=== PATIENT | male | born 1990 | race Caucasian/White ===

== ENCOUNTER 2025-03-14 17:11 | Emergency (ER) | payer MEDICARE, MEDICAID, SELFPAY ==
[2025-03-14] VITALS (9 sets, daily range): BP systolic 132–156; BP diastolic 86–101; PULSE 89–102; RESP 16–17; TEMP 36.6; O2SAT 94–98; BMI 23.8
--- NOTE | 2025-03-14 17:15 | W.ED.EXTPRO ---
HPI - Extremity Problem General: Chief complaint: Extremity Problem,Nontraumatic Stated complaint: right arm pain Time Seen by Provider: 03/14/25 17:13 Source: patient Mode of arrival: EMS Limitations: no limitations History of Present Illness: Patient is a 34-year-old male presents to ED today with a complaint of left arm swelling and pain that started yesterday evening. He states the arm felt normal all day but later that evening began developing swelling. Patient denies any injury or trauma. He denies any recent scratches, abrasions, lacerations. Denies IV drug use. Denies history of DVT/PE. He is a dialysis patient and has a port for hemodialysis. He has not missed any treatments. He has had a fistula to the left arm before but this was removed several years ago. Patient is not complaining of shortness of breath or difficulty breathing. Vital signs are stable upon arrival apart from his blood pressure is elevated at 156/101. 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 MD Complaint: extremity pain and extremity swelling Onset (ago): day(s) (yesterday evening) Pain Consistency: constant Location: left and upper extremity Radiation: none Relieving factors: immobilization Exacerbating factors: range of motion and palpation Associated symptoms: Reports no associated symptoms; Deny chest pain or fever(s) Related Data Previous Rx's ?Medication ?Instructions ?Recorded apixaban 5 mg tablet (Eliquis) 5 mg PO BID #74 tabs 03/14/25 hydrocodone 5 mg-acetaminophen 325 1 tab PO Q6H PRN pain #20 tabs 03/14/25 mg tablet Allergies Allergy/AdvReac Type Severity Reaction Status Date / Time bee venom protein (honey bee) Allergy ALGY-Anaphy Verified 03/14/25 17:16 laxis mushroom Allergy ALGY-Anaphy Verified 03/14/25 17:16 laxis vancomycin Allergy ALGY-Redness Verified 03/14/25 17:16 of Skin Review of Systems Const: Denies: fever(s), chills, body aches, fatigue or malaise Card: Denies: chest pain Resp: Denies: dyspnea GI: Denies: abdominal pain Musc: Reports: extremity pain (L arm) and extremity swelling (L arm) Skin/Breast: Denies: erythema Neuro: Denies: headache(s) Physical Exam Const: COMMON NORMALS: no acute distress, patient oriented x3 and alert GENERAL APPEARANCE: cooperative and other (chronically ill appearing) ORIENTATION/CONSCIOUSNESS: Yes awake, Yes oriented to person, Yes oriented to place and Yes oriented to time HENMT: COMMON NORMALS: normocephalic and atraumatic HEAD & SCALP: normal to inspection, normocephalic and atraumatic FACE & SINUS: normal facial exam Chest: OTHER: chest port appears clean/well dressed Resp: COMMON NORMALS: normal respiratory effort and clear to auscultation bilaterally AUSCULTATION: clear to auscultation bilaterally Cardio: COMMON NORMALS: regular rate and regular rhythm RATE: regular rate RHYTHM: regular rhythm Extremity: COMMON NORMALS: capillary refill normal NARRATIVE EXTREMITY EXAM: bilateral LE amputations patient has diffuse edema involving entire L UE; radial pulse is normal with normal cap refill; arm is warm to the touch but no erythema/streaking noted; no wounds present; pain worse with movement and palpation GENERAL: Yes normal exam except as noted Neuro: COMMON NORMALS: patient oriented x3 SENSORIUM/ORIENTATION: Yes alert, Yes oriented to person, Yes oriented to place and Yes oriented to time Skin: COMMON NORMALS: no rashes or lesions noted GENERAL SKIN EXAM: no rashes or lesions noted TRAUMA: no lacerations or abrasions Course Consultations: Consultation #1: Dr. Hebert-felt patient could be safely discharged on Eliquis/Xarelto-did not feel he needed to be admitted for IV heparin Vital Signs: Vital signs: Vital Signs Temperature 97.8 F 03/14/25 17:12 Pulse Rate 102 H 03/14/25 20:44 Respiratory Rate 16 03/14/25 20:36 Blood Pressure 141/99 03/14/25 20:44 Pulse Oximetry 95 03/14/25 20:44 Oxygen Delivery Me thod Room Air 03/14/25 20:04 MDM - Extremity (Nontraumatic) Medical Decision Making Patient is a 34-year-old male with a complex past medical history here with a complaint of left arm swelling starting yesterday evening. He denies any known injury or trauma to the extremity. He denies any abrasions, cuts, scrapes, puncture wounds, drug use, etc to introduce infection. Clinically there is no cellulitis present. He was reportedly evaluated at [facility] and sent here for DVT rule out. Patient was found to have a left axillary DVT. He is not complaining of shortness of breath or difficulty breathing. Given his complex past medical history, I did discuss with Dr. Parks who felt we should consult with hospitalist for possible admission. I did discuss with hospitalist Dr. Hebert who felt patient could go home on oral anticoagulation. Blood work was obtained here showing multiple derangements. We tried to contact [facility] for previous lab results but was told that we do not have access to that . He was not sent with any previous labs. Patient states his last hospitalization was at [facility] a few months ago. We tried to contact records from them but awaited several hours and still not obtained. Patient has been compliant with his dialysis. He is scheduled for dialysis tomorrow. His BUN/CR today is 60/4.7. Potassium is normal. Patient does have elevated LFTs. He has a normal T. bili. His lipase is 8. He has no complaints of abdominal pain. I think these can be followed by primary care if they are acute. He had no other complaints today other than the arm swelling/pain. No evidence at this time for phlegmasia cerulea dolens to suggest that he would need an emergent thrombectomy. No contraindication to anticoagulation. Patient will be allowed discharge with strict return precautions. Differential Diagnosis Likely gout, cellulitis, superficial thrombophlebitis and deep venous thrombosis of upper extremity Medical Records I reviewed the patient's medical records. Lab Data I reviewed the patient's lab results. 03/14/25 17:56 03/14/25 17:56 Radiology Impressions Venous Duplex 03/14/25 17:24 IMPRESSION: Left axillary vein deep vein thrombosis. ADDENDUM: 03/14/251917 THIS REPORT CONTAINS FINDINGS THAT MAY BE CRITICAL TO PATIENT CARE. The findings were verbally communicated via telephone conference with MARTI FRIEND at 7:17 PM MERCHANDISING LEAD on 03/14/2025. The findings were acknowledged and understood. Laboratory Results WBC 9.25 10^3/uL (3.29-11.43) 03/14/25 17:56 RBC 4.11 10^6/uL (3.85-5.65) 03/14/25 17:56 Hgb 11.90 g/dL (11.27-16.99) 03/14/25 17:56 Hct 37.8 % (37-53) 03/14/25 17:56 MCV 92.0 fl (82-101) 03/14/25 17:56 MCH 29.0 pg (27-33) 03/14/25 17:56 MCHC 31.5 g/dL (30-55) 03/14/25 17:56 RDW 13.9 % (12.1-15.1) 03/14/25 17:56 Plt Count 190 10^3/cmm (157-399) 03/14/25 17:56 MPV 8.4 fL (7.4-10.4) 03/14/25 17:56 Neut % (Auto) 54.9 % 03/14/25 17:56 Lymph % (Auto) 21.4 % 03/14/25 17:56 [place] % (Auto) 8.6 % 03/14/25 17:56 Eos % (Auto) 13.8 % 03/14/25 17:56 Baso % (Auto) 0.8 % 03/14/25 17:56 Neut # (Auto) 5.07 10^3/uL (1.8-7.7) 03/14/25 17:56 Lymph # (Auto) 2.0 10^3/uL (0.8-4.8) 03/14/25 17:56 [place] # (Auto) 0.8 10^3/uL (0.2-0.9) 03/14/25 17:56 Eos # (Auto) 1.3 10^3/uL (0.0-0.8) H 03/14/25 17:56 Baso # (Auto) 0.1 10^3/uL (0.0-0.1) 03/14/25 17:56 Nucleated RBC % (auto) 0 % 03/14/25 17:56 Nucleated RBCs # 0.0 /100WBC 03/14/25 17:56 ESR 63 mm/hr (0-10) H 03/14/25 17:56 PT 15.70 SECONDS (12.1-14.9) H 03/14/25 17:56 INR 1.17 (0.8-1.2) 03/14/25 17:56 APTT 33.9 SECONDS (23.9-36.7) 03/14/25 17:56 Sodium 128 mmol/L (136-145) L 03/14/25 17:56 Potassium 4.4 mmol/L (3.5-5.1) 03/14/25 17:56 Chloride 98 mmol/L (98-107) 03/14/25 17:56 Carbon Dioxide 20 mmol/L (22-29) L 03/14/25 17:56 Anion Gap 14.4 (5-19) 03/14/25 17:56 BUN 60 mg/dL (6-20) H 03/14/25 17:56 Creatinine 4.7 mg/dL (0.7-1.2) H 03/14/25 17:56 GFR Calculation 14.3 mL/min (90-130) L 03/14/25 17:56 Glucose 152 mg/dL (65-115) H 03/14/25 17:56 Calculated Osmolality 286 mOsm/kg (285-295) 03/14/25 17:56 Calcium 8.4 mg/dL (8.5-10.5) L 03/14/25 17:56 Total Bilirubin 0.3 mg/dL (0.15-1.2) 03/14/25 17:56 AST 84 U/L (0-40) H 03/14/25 17:56 ALT 112 U/L (0-41) H 03/14/25 17:56 Alkaline Phosphatase 690 U/L (40-130) H 03/14/25 17:56 C-Reactive Protein 18.0 mg/L (0.0-4.9) H 03/14/25 17:56 Total Protein 6.8 g/dL (6.6-8.7) 03/14/25 17:56 Albumin 2.6 g/dL (3.5-5.2) L 03/14/25 17:56 Globulin 4.2 g/dL (1.3-4.6) 03/14/25 17:56 Lipase 8 U/L (13-60) L 03/14/25 17:56 All radiology interpretation(s) finalized by discharge Discharge Plan Discharge Patient Disposition: Home Clinical Impression: DVT of axillary vein, acute left, Elevated LFTs Chronic kidney disease Qualifiers: Chronic kidney disease stage: on chronic dialysis Qualified Code(s): N18.6 - End stage renal disease Condition: Stable Prescriptions: New Eliquis 5 mg tablet 5 mg PO BID Qty: 74 0RF Rx Instructions: Take two tabs (10mg) PO BID x 7 days then one tab (5mg) PO BID thereafter hydrocodone-acetaminophen 5-325 mg tablet 1 tab PO Q6H PRN (Reason: pain) Qty: 20 0RF Discharge Orders: Discharge ED (Routine); Ordered 03/14/25 Ordered By: Marti Friend Patient Instructions: Apixaban (By mouth), Deep Vein Thrombosis (ED), Deep Vein Thrombosis (DC), Opioid Safety, Pain Management, Patient Portal & Lidia Instructions Activity Restrictions/Additional Instructions: As we discussed, your ultrasound imaging today showing a DVT (deep vein thrombosis/blood clot) involving your left axillary vein which is responsible for causing the swelling to your left arm. We will place you on anticoagulation ( blood thinners ) for this. You need to follow-up with your primary care provider as soon as possible. You need to return to the emergency department for worsening arm swelling, color changes, worsening or uncontrollable pain, onset of chest pain, shortness of breath, difficulty breathing, or any other concerns you may have. Continue plan for dialysis as scheduled. As we discussed, you were found to have elevated liver enzymes on your blood work today. I am not sure if these are chronic or not as we were not able to obtain any baseline labs from [facility] or from [facility] in [place]. I would like primary care to review these and determine course of action based. Again you are welcome to return to the emergency department at anytime for any further concerns you may have. Print Language: Telugu Coding Level of Care Code ED Marketing Admin for Linda Castellano
--- OUTSIDE RECORDS SUMMARY | 2025-03-14 17:22 | XMS_ITS | Encounter Summary ---
Author Organization [facility] Address [address] [place] [address] Care Team Providers Care Commercial Front Load Driver Name Role Phone Cc Amb, Physician Pc MD Primary Care Provider Un available Encounter Details Date Type Department Care Team (Late st Contact Info) Description 02/02/2021 Lab Requisition [facility] Laboratory Services [address] [place] [phone] Lurdes Cabrera MD [address] [place] [address] Social History Tobacco Use Types Packs/Day Years Used Date Smoking Tobacco: Never Smokeless Tobacco: Never Alcohol Use Standard Drinks/Week Comments No 0 (1 standard drink = 0.6 oz pur e alcohol) Feeling Safe Answer Date Recorded Within the last year, have y ou been afraid of your partner or ex-partner? Patient declined 06/14/2020 Within the last year, have y ou been humiliated or emotionally abused in other ways by your partner or ex-partner? Patient declined 06/14/2020 Within the last year, have y ou been kicked, hit, slapped, or otherwise physically hurt by your partner or ex-partner? Patient declined 06/14/2020 Within the last year, have y ou been raped or forced to have any kind of sexual activity by your partner or ex-partner? Patient declined 06/14/2020 Social Connections Answer Date Recorded In a typical week, how many times do you talk on the phone with family, friends, or neighbors? Patient declined 06/14/2020 How often do you get togethe r with friends or relatives? Patient declined 06/14/2020 How often do you attend orthodoxy or sikh serv ices? Patient declined 06/14/2020 Do you belong to any clubs o r organizations such as orthodoxy groups, unions, fraternal or athletic groups, or school groups? Patient declined 06/14/2020 How often do you attend meet ings of the clubs or organizations you belong to? Patient declined 06/14/2020 Are you , , di vorced, , never , or living with a partner? Patient declined 06/14/2020 Financial Resource Strain Answer Date R ecorded How hard is it for you to pa y for the very basics like food, housing, medical care, and heating? Patient declined 06/14/2020 Food Insecurity Answer Date Recorded Within the past 12 months, y ou worried that your food would run out before you got the money to buy more. Patient declined Within the past 12 months, t he food you bought just didn't last and you didn't have money to get more. Patient declined Transportation Needs Answer Date Record ed In the past 12 months, has l ack of transportation kept you from medical appointments or from getting medications? Patient declined 06/14/2020 In the past 12 months, has l ack of transportation kept you from meetings, work, or from getting things needed for daily living? Patient declined 06/14/2020 Sex and Gender Information Value Date Recorded Sex Assigned at Not on file Legal Sex Male 6:04 AM ELECTRICAL CALIBRATOR Gender Identity Not on file Sexual Orientation Not on file COVID-19 Exposure Response Date Recorded In the last month, have you been in contact with someone who was confirmed or suspected to have Coronavirus / COVID-19? No / Unsure 01/27/2021 8:28 PM CDT documented as of this encounter Plan of Treatment Upcoming Encounters Date Type Department Care Team (Late st Contact Info) Description 03/22/2025 12:30 PM ELECTRICAL CALIBRATOR Office Visit [facility] Physical Med and Rehab [facility] [address] [place] [phone] William Cardozo MD [address] [place] [phone] 03/23/2025 10:50 AM ELECTRICAL CALIBRATOR Appointment [facility] Laboratory Services [address] [place] [address] 03/30/2025 7:50 AM ELECTRICAL CALIBRATOR Office Visit [facility] Cancer and Hematology [place] [address] [place] [address] Jignesh Geiger NP [address] [place] [address] documented as of this encounter Procedures Procedure Name Priority Date/Time Associated Diagnosis Comments DIFFERENTIAL, MANUAL Routine 02/02/2021 4:45 AM CDT CBC WITH DIFFERENTIAL Routine 02/02/2021 4:45 AM CDT PHOSPHORUS Routine 02/02/2021 4:45 AM CDT MAGNESIUM LEVEL Routine 02/02/2021 4:45 AM CDT COMPREHENSIVE METABOLIC PANEL Routine 02/02/2021 4:45 AM CDT documented in this encounter Results * (ABNORMAL) MANUAL DIFFERENTIAL (02/02/2021 4:45 AM CDT) SEGMENTED NEUTROPHILS 66 36 - 66 % 02/02/2021 7:53 AM CDT [facility] [employer] [facility] LYMPHOCYTES RELATIVE 17(L) 24 - 44 % 02/02/2021 7:53 AM CDT [facility] [employer] [facility] MONOCYTES RELATIVE 9 4 - 10 % 2020 7:53 AM CDT [facility] [employer] [facility] EOSINOPHILS RELATIVE 1 0 - 3 % 02/02/2021 7:53 AM CDT [facility] METAMYELOCYTES RELATIVE 3(H) 0 - 1 % 02/02/2021 7:53 AM CDT [facility] MYELOCYTES - REL (DIFF) 4(H) 0 - 1 % 02/02/2021 7:53 AM CDT [facility] NEUTROPHILS ABSOLUTE COUNT 8.18(H) 2.00 - 8.00 K/uL 02/02/2021 7:53 AM CDT [facility] LYMPHOCYTES ABSOLUTE 2.11 1.20 - 4.00 K/uL 02/02/2021 7:53 AM CDT [facility] MONOCYTES ABSOLUTE 1.12(H) 0.10 - 0.60 K/uL 02/02/2021 7:53 AM CDT [facility] EOSINOPHILS ABSOLUTE 0.12 0.00 - 0.70 K/uL 02/02/2021 7:53 AM CDT [facility] TOTAL CELLS COUNTED IN DIFF 100 02/02/2021 7:53 AM [facility] PLATELET EST. Increased 02/02/2021 7:53 AM [facility] HYPOCHROMIA 2+ /hpf 02/02/2021 7:53 AM T [facility] Blood Collection / Unknown 02/02/2021 4:45 AM CDT 02/02/2021 6:40 AM CDT Lurdes Cabrera MD HEMATOLOGY ORDER AILYN COM Final Result [facility] CLIA # [id number] [address] [address] [place] [address] * PHOSPHORUS (02/02/2021 4:45 AM CDT) [facility] PHOSPHORUS 4.3 2.5 - 4.5 mg/dL 02/02/2021 7:44 AM CDT [facility] Blood Collection / Unknown 02/02/2021 4:45 AM CDT 02/02/2021 6:40 AM CDT us Lurdes Cabrera MD CHEMISTRY ORDERA BLES Final Result [facility] CLIA # [id number] [address] [address] [place] [address] * (ABNORMAL) CBC WITH DIFFERENTIAL (02/02/2021 4:45 AM CDT) [facility] WBC 12.4(H) 4.5 - 11.0 K/uL 02/02/2021 7:53 AM CDT [facility] RBC 3.38(L) 4.60 - 6.20 M/uL 02/02/2021 7:53 AM CDT [facility] HEMOGLOBIN 8.9(L) 14.0 - 18.0 g/dL 02/02/2021 7:53 AM CDT [facility] HEMATOCRIT 29.9(L) 41.0 - 53.0 % 02/02/2021 7:53 AM CDT [facility] MCV 88.5 84.0 - 103.0 fL 02/02/2021 7:53 AM CDT [facility] MCH 26.3(L) 27.0 - 34.0 pg 02/02/2021 7:53 AM CDT [facility] MCHC 29.8(L) 30.0 - 35.0 g/dL 02/02/2021 7:53 AM CDT [facility] RDW 15.9(H) 11.0 - 14.5 % 02/02/2021 7:53 AM CDT [facility] RDW-STDEV 50.2 37.0 - 54.0 fL 02/02/2021 7:53 AM CDT [facility] PLATELETS 517(H) 140 - 440 K/uL 02/02/2021 7:53 AM CDT [facility] MPV 10.4 8.9 - 12.8 fL 02/02/2021 7:53 AM CDT [facility] Blood Collection / Unknown 02/02/2021 4:45 AM CDT 02/02/2021 6:40 AM CDT us Lurdes Cabrera MD HEMATOLOGY ORDER AILYN Final Result Performing Organization Address City/[facility]/ZIP Co de Phone Number [facility] CLIA # [id number] [address] [address] [place], [place] [address] * MAGNESIUM LEVEL (02/02/2021 4:45 AM CDT) Pathologist [facility] MAGNESIUM 2.2 1.6 - 2.6 mg/dL 02/02/2021 7:44 AM CDT [facility] Blood Collection / Unknown 02/02/2021 4:45 AM CDT 02/02/2021 6:40 AM CDT us Lurdes Caberra MD CHEMISTRY ORDERA BLES Final Result Performing Organization Address [facility] [[email or web address]] Co de Phone Number [facility] CLIA # [id number] [address] [address] * (ABNORMAL) COMPREHENSIVE METABOLIC PANEL (02/02/2021 4:45 AM CDT) Pathologist [facility] SODIUM 138 136 - 145 mmol/L 02/02/2021 7:46 AM CDT [facility] POTASSIUM 4.9 3.5 - 5.1 mmol/L 02/02/2021 7:46 AM CDT [facility] Comment:Slightly hemolyzed. Result may be falsely elevated. CHLORIDE 99 98 - 107 mmol/L 02/02/2021 7:46 AM CDT [facility] CO2 27 22 - 29 mmol/L 02/02/2021 7:46 AM CDT [facility] CALCIUM 9.2 8.6 - 10.0 mg/dL 02/02/2021 7:46 AM [facility] BUN 23(H) 6 - 20 mg/dL 02/02/2021 7:46 AM [facility] CREATININE 2.83(H) 0.67 - 1.17 mg/dL 02/02/2021 7:46 AM [facility] GLUCOSE 144(H) 74 - 99 mg/dL 02/02/2021 7:46 AM [facility] TOTAL PROTEIN 8.1 6.4 - 8.3 g/dL 02/02/2021 7:46 AM [facility] ALBUMIN 2.4(L) 3.5 - 5.2 g/dL 02/02/2021 7:46 AM [facility] BILIRUBIN TOTAL 0.3 0.2 - 1.0 mg/dL 02/02/2021 7:46 AM [facility] ALKALINE PHOSPHATASE 533(H) 40 - 129 U/L 02/02/2021 7:46 AM [facility] AST 104(H) 10 - 50 U/L 02/02/2021 7:46 AM [facility] Comment:Hemolysis present. R esult may be falsely elevated. ALT 95(H) <=50 U/L 02/02/2021 7:46 AM [facility] GFR 26 mL/min/1. 73 sq meter 02/02/2021 7:46 AM [facility] Comment: eGFR has not been validated for use in the elderly (> 70 years of age), women, patients with serious co-morbid conditions, or persons with extremes of body size or muscle mass and should also be interpreted with caution in patients with acute kidney failure, dialysis dependent patients, patients reporting exceptional dietary intake (e.g. vegetarian diet, high protein diets, creatine supplementation), and patients with severe liver disease. Based on National Kidney Disease Education Program If patient is , please refer to the GFR result. GFR, 32 mL/min/1. 73 sq meter 02/02/2021 7:46 AM CDT [facility] ANION GAP 12 9 - 20 mmol/L 02/02/2021 7:46 AM CDT [facility] Blood Collection / Unknown 02/02/2021 4:45 AM CDT 02/02/2021 6:40 AM CDT Lurdes Cabrera MD CHEMISTRY ORDERA BLES Final Result [facility] CLIA # [id number] [address] [address] documented in this encounter Visit Diagnoses Not on filedocumented in this encounter Additional Health Concerns Infection Onset Date Last Indicated Resolved Time COVID-19 01/18/2021 01/18/2021 02/07/2021 1:16 AM CDT R/O COVID-19 01/30/2022 01/30/2022 01/30/2022 6:48 PM CDT C Diff 01/30/2022 02/05/2022 04/06/2022 1:16 AM ELECTRICAL CALIBRATOR R/O GI Pathogen 05/07/2023 05/07/2023 05/09/2023 3 :52 PM ELECTRICAL CALIBRATOR R/O Respiratory 11/15/2024 11/15/2024 11/15/2024 1 1:33 AM CDT R/O GI Pathogen 11/15/2024 11/16/2024 11/16/2024 1 1:55 AM CDT R/O Palmira auris Comment:Possible exposure to Palmira auris. Patient to be screened for C. auris and placed in Enhanced Contact precautions at every ED visit/admission until 05/23/2024 and once thereafter. If all screens are negative, contact Infection Prevention to resolve the R/O Palmira auris flag. 11/20/2024 11/20/2024 11/23/2024 2:43 PM CDT R/O C. diff 12/10/2024 12/10/2024 12/10/2024 9:47 PM CDT R/O GI Pathogen 12/10/2024 12/10/2024 12/10/2024 8 :34 PM CDT C Diff Comment:01/20/25: Patient continues to report symptoms of C. Diff and will need to remain in enteric contact isolation. Zohaib Angulo RN, Infection Prevention 12/10/2024 12/10/2024 02/08/2025 10:22 PM CDT MRSA 01/20/2025 01/20/2025 02/19/2025 10:2 1 PM CDT documented as of this encounter Care Teams Commercial Front Load Driver Relationship Specialty Start Date End Date Cc Jailyn, Physician Pc, MD PCP - General Family Practice 02/18/25 documented as of this encounter
--- OUTSIDE RECORDS SUMMARY | 2025-03-14 17:22 | XMS_ITS | Encounter Summary ---
Author Organization [facility] Address [address] [place] [address] Care Team Providers Care Optics Test Technician Name Role Phone Cc Amb, Physician Pc MD Primary Care Provider Un available Encounter Details Date Type Department Care Team (Late st Contact Info) Description 02/13/2021 Lab Requisition [facility] Laboratory Services [address] [place] [phone] Denzel Ku[place] [id number] [place] [phone] Social History Tobacco Use Types Packs/Day Years [...] declined 06/14/2020 How often do you attend temple or confucianism serv ices? Patient declined 06/14/2020 Do you belong to any clubs o r organizations such as temple groups, unions, fraternal or athletic groups, or [...] on file Legal Sex Male 6:04 AM ADVICE LINE RN Gender Identity Not on file Sexual Orientation Not on file COVID-19 Exposure Response Date Recorded In the last month, have you been in contact with someone who was confirmed or suspected to have Coronavirus / COVID-19? No / Unsure 02/16/2021 12:39 PM CDT documented as of this encounter Plan of Treatment Upcoming Encounters Date Type Department Care Team (Late st Contact Info) Description 03/22/2025 12:30 PM ADVICE LINE RN Office Visit [facility] Physical Med and Rehab [facility] [address] [phone] William Cardozo MD [address] [place] [phone] 03/23/2025 10:50 AM ADVICE LINE RN Appointment [facility] Laboratory Services [address] [place] [address] 03/30/2025 7:50 AM ADVICE LINE RN Office Visit [facility] Cancer and Hematology [place] [address] [place] [address] Jignesh Geiger NP [address] [place] [address] documented as of this encounter Procedures Procedure Name Priority Date/Time Associated Diagnosis Comments CBC WITH DIFFERENTIAL Routine 02/13/2021 4:02 AM CDT RENAL FUNCTION PANEL Routine 02/13/2021 4:02 AM CDT documented in this encounter Results * (ABNORMAL) CBC WITH DIFFERENTIAL (02/13/2021 4:02 AM CDT) WBC 9.6 4.5 - 11.0 K/uL 02/13/2021 6:30 AM CDT [facility] RBC 3.81(L) 4.60 - 6.20 M/uL 02/13/2021 6:30 AM CDT [facility] HEMOGLOBIN 10.3(L) 14.0 - 18.0 g/dL 02/13/2021 6:30 AM CDT [facility] HEMATOCRIT 33.5(L) 41.0 - 53.0 % 02/13/2021 6:30 AM CDT [facility] MCV 87.9 84.0 - 103.0 fL 02/13/2021 6:30 AM CDT [facility] MCH 27.0 27.0 - 34.0 pg 02/13/2021 6:30 AM [facility] Surgient [facility] MCHC 30.7 30.0 - 35.0 g/dL 02/13/2021 6:30 AM [facility] RDW 16.1(H) 11.0 - 14.5 % 02/13/2021 6:30 AM [facility] RDW-STDEV 50.7 37.0 - 54.0 fL 02/13/2021 6:30 AM [facility] PLATELETS 336 140 - 440 K/uL 02/13/2021 6:30 AM [facility] Surgient [facility] MPV 9.3 8.9 - 12.8 fL 02/13/2021 6:30 AM [facility] Surgient [facility] NEUTROPHILS 72 42 - 75 % 02/13/2021 6:30 AM [facility] LYMPHOCYTES 17(L) 24 - 44 % 02/13/2021 6:30 AM [facility] Surgient [facility] MONOCYTES 7 2 - 10 % 02/13/2021 6:30 AM [facility] Surgient [facility] EOSINOPHILS 2 0 - 7 % 02/13/2021 6:30 AM [facility] Surgient [facility] BASOPHILS 1 0 - 1 % 02/13/2021 6:30 AM [facility] IMMATURE GRANULOCYTES 2 0 - 2 % 02/13/2021 6:30 AM [facility] NEUTROPHIL ABSOLUTE 6.89 2.00 - 8.00 K/uL 02/13/2021 6:30 AM [facility] LYMPHOCYTE ABSOLUTE 1.59 1.20 - 4.00 K/uL 02/13/2021 6:30 AM [facility] MONOCYTE ABSOLUTE 0.64(H) 0.10 - 0.60 K/uL 02/13/2021 6:30 AM [facility] EOSINOPHIL ABSOLUTE 0.17 0.00 - 0.70 K/uL 02/13/2021 6:30 AM [facility] BASOPHILS ABSOLUTE 0.05 0.00 - 0.20 K/uL 02/13/2021 6:30 AM CDT [facility] IMMATURE GRANULOCYTES ABSOLUTE 0.21(H) 0.00 - 0.10 K/uL 02/13/2021 6:30 AM CDT [facility] Blood Collection / Unknown 02/13/2021 4:02 AM CDT 02/13/2021 6:20 AM CDT us Denzel Kuo MD HEMATOLOGY ORDERABLES Final Res ult [facility] CLIA # [id number] [address] [address] * (ABNORMAL) RENAL FUNCTION PANEL (02/13/2021 4:02 AM CDT) SODIUM 135(L) 136 - 145 mmol/L 02/13/2021 7:50 AM T [facility] POTASSIUM 3.7 3.5 - 5.1 mmol/L 02/13/2021 7:50 AM T [facility] CHLORIDE 97(L) 98 - 107 mmol/L 02/13/2021 7:50 AM T [facility] CO2 25 22 - 29 mmol/L 02/13/2021 7:50 AM T [facility] CALCIUM 9.0 8.6 - 10.0 mg/dL 02/13/2021 7:50 AM T [facility] BUN 37(H) 6 - 20 mg/dL 02/13/2021 7:50 AM T [facility] CREATININE 4.12(H) 0.67 - 1.17 mg/dL 02/13/2021 7:50 AM CDT [facility] GLUCOSE 79 74 - 99 mg/dL 02/13/2021 7:50 AM T [facility] ALBUMIN 2.5(L) 3.5 - 5.2 g/dL 02/13/2021 7:50 AM T [facility] PHOSPHORUS 5.7(H) 2.5 - 4.5 mg/dL 02/13/2021 7:50 AM CDT [facility] Surgient [facility] GFR 17 mL/min/1. 73 sq meter 02/13/2021 7:50 AM CDT [facility] Comment: eGFR has not been validated for [...] please refer to the GFR result. GFR, 21 mL/min/1. 73 sq meter 02/13/2021 7:50 AM CDT [facility] ANION GAP 13 9 - 20 mmol/L 02/13/2021 7:50 AM T [facility] Blood Collection / Unknown 02/13/2021 4:02 AM CDT 02/13/2021 6:20 AM CDT us Denzel Kuo MD CHEMISTRY ORDERABLES Final Resu lt [facility] CLIA # [id number] [facility] [id number] documented in this encounter Visit Diagnoses Not on filedocumented in this encounter Additional Health Concerns Infection Onset Date Last Indicated Resolved Time R/O COVID-19 01/30/2022 01/30/2022 01/30/2022 6:48 PM CDT C Diff 01/30/2022 02/05/2022 04/06/2022 1:16 AM ADVICE LINE RN R/O GI Pathogen 05/07/2023 05/07/2023 05/09/2023 3 :52 PM ADVICE LINE RN R/O Respiratory 11/15/2024 11/15/2024 11/15/2024 1 1:33 AM CDT R/O GI Pathogen 11/15/2024 11/16/202411/16/2024 1 1:55 AM CDT R/O Palmira auris [...] documented as of this encounter Care Teams Optics Test Technician Relationship Specialty Start Date End Date Cc Jailyn, Physician Pc, MD PCP - General Family Practice 02/18/25 documented as of this encounter
--- OUTSIDE RECORDS SUMMARY | 2025-03-14 17:22 | XMS_ITS | Encounter Summary ---
Author Organization [facility] Address [address] [place] [address] Care Team Providers Care Lane Marker Installer Name Role Phone Cc Amb, Physician Pc MD Primary Care Provider Un available Encounter Details Date Type Department Care Team (Late st Contact Info) Description 02/02/2021 Lab Requisition [facility] Laboratory Services [address] [place] [address] [place] [phone] Lurdes Cabrera MD [address] [place] [address] Social History Tobacco Use Types [...] declined 06/14/2020 How often do you attend mandaeism or restoration serv ices? Patient declined 06/14/2020 Do you belong to any clubs o r organizations such as mandaeism groups, unions, fraternal or athletic groups, or [...] on file Legal Sex Male 6:04 AM MEAT STOCK CLERK Gender Identity Not on file Sexual Orientation [...] st Contact Info) Description 03/22/2025 12:30 PM MEAT STOCK CLERK Office Visit [facility] Physical Med and Rehab [facility] [address] [place] [address] William Cardozo MD [address] [place] [address] 03/23/2025 10:50 AM MEAT STOCK CLERK Appointment [facility] Laboratory Services [address] [place] [address] 03/30/2025 7:50 AM MEAT STOCK CLERK Office Visit [facility] Cancer and Hematology [place] [address] [place] [address] Jignesh Geiger NP [address] [place] [address] documented as of this encounter Procedures Procedure Name Priority Date/Time Associated Diagnosis Comments VANCOMYCIN LEVEL TROUGH Routine 02/02/2021 10:20 AM CDT documented in this encounter Results * (ABNORMAL) VANCOMYCIN LEVEL TROUGH (02/02/2021 10:20 AM CDT) VANCOMYCIN, TROUGH 7.7(L) 10.0 - 17.0 ug/mL 02/02/2021 12:59 PM CDT [facility] Blood Collection / Unknown 02/02/2021 10:20 AM CDT 02/02/2021 12:28 PM CDT us Lurdes Cabrera MD CHEMISTRY ORDERA BLES Final Result [facility] CLIA # [id number] [address] [place] [address] documented in this encounter Visit Diagnoses Not on filedocumented in this encounter Additional Health Concerns Infection Onset Date Last Indicated Resolved Time COVID-19 01/18/2021 01/18/2021 02/07/2021 1:16 AM CDT R/O COVID-19 01/30/2022 01/30/2022 01/30/2022 6:48 PM CDT C Diff 01/30/2022 02/05/2022 04/06/2022 1:16 AM MEAT STOCK CLERK R/O GI Pathogen 05/07/2023 05/07/2023 05/09/2023 3 :52 PM MEAT STOCK CLERK R/O Respiratory 11/15/2024 11/15/2024 11/15/2024 1 1:33 [...] CDT R/O GI Pathogen 12/10/2024 12/10/2024 12/10/2024 8:34 PM CDT C Diff Comment:01/20/25: Patient continues to report symptoms of C. Diff and will need to remain in enteric contact isolation. Zohaib Angulo RN, Infection Prevention 12/10/2024 12/10/2024 02/08/2025 10:22 PM CDT MRSA 01/20/2025 01/20/2025 02/19/2025 10:2 1 PM CDT documented as of this encounter Care Teams Lane Marker Installer Relationship Specialty Start Date End Date Cc Jailyn, Physician Pc, MD PCP - General Family Practice 02/18/25 documented as of this encounter
--- OUTSIDE RECORDS SUMMARY | 2025-03-14 17:22 | XMS_ITS | Encounter Summary ---
Author Organization [facility] Address [address] [place] [address] Care Team Providers Care Registered Nursing Professor Name Role Phone Cc Amb, Physician Pc MD Primary Care Provider Un available Encounter Details Date Type Department Care Team (Late st Contact Info) Description 01/26/2025 Hospital Encounter [facility] [address] [place] [phone] Cipriano Martinez MD [address] [phone] Social History Tobacco Use Types Packs/Day Years Used Date Smoking Tobacco: Never Passive Smoke Exposure: Never Smokeless Tobacco: Never Alcohol Use Standard Drinks/Week Comments Not Currently 0 (1 standard drink = 0.6 oz pur e alcohol) Feeling Safe Answer Date Recorded Within the last year, have y ou been afraid of your partner or ex-partner? No 05/03/2021 Within the last year, have y ou been humiliated or emotionally abused in other ways by your partner or ex-partner? No Within the last year, have y ou been kicked, hit, slapped, or otherwise physically hurt by your partner or ex-partner? No 05/03/2021 Within the last year, have y ou been raped or forced to have any kind of sexual activity by your partner or ex-partner? No 05/03/2021 Social Connections Answer Date Recorded In a typical week, how many times do you talk on the telephone with family, friends, or neighbors? More than three times a week 05/03/2021 How often do you get togethe r with friends or relatives? More than three times a week 05/03/2021 How often do you attend chur ch or anabaptist services? More than 4 times per year 05/03/2021 Do you belong to any clubs o r organizations such as anabaptism groups, unions, fraternal or athletic groups, or school groups? No 05/03/2021 How often do you attend meet ings of the clubs or organizations you belong to? Never 05/03/2021 Are you , , di vorced, , never , or living with a partner? 05/03/2021 Financial Resource Strain Answer Date R ecorded How hard is it for you to pa y for the very basics like food, housing, medical care, and heating? Not hard at all 05/03/2021 Food Insecurity Answer Date Recorded In the past 12 months, have you worried that your food would run out before you had money to buy more? Never true 05/03/2021 In the past 12 months, did y ou run out of food and didn't have money to buy more? Never true 05/03/2021 Transportation Needs Answer Date Record ed In the past 12 months, has l ack of transportation kept you from medical appointments or from getting medications? No 04/22 In the past 12 months, has l ack of transportation kept you from meetings, work, or from getting things needed for daily living? No 05/03/2021 Housing Stability Answer Date Recorded In the last 12 months, was t here a time when you were not able to pay the mortgage or rent on time? No 05/03/2021 In the past 12 months, how m any times have you moved where you were living? 1 05/03/2021 At any time in the past 12 m [facility], were you homeless or living in a correction (including now)? No 05/03/2021 Food Insecurity Answer Date Recorded Do you find you are eating l ess than you should because you can t pay for food? No 01/20/2025 Transportation Needs Answer Date Record ed Have you gone without health care because you didn t have a way to get there? Or worry about transportation for future doctor visits, metal pickling equipment operator medication, etc.? No 2024 Housing Stability Answer Date Recorded Do you worry you won t have a steady place to sleep or struggle to pay rent or mortgage? No 01/20/2025 Utility Needs Answer Date Recorded Do you have difficulty payin g for utility costs (electric, water or gas bills)? No 01/20/2025 Medication Needs Answer Date Recorded Have you skipped taking medi cation due to cost or worry you can t afford new medications? No 01/20/2025 Feeling Safe Answer Date Recorded Are you in a relationship wi th someone who hurts you emotionally and/or physically? No 01/20/2025 Food Insecurity Answer Date Recorded Patient needs follow up regardin 08/12/2024 Transportation Needs Answer Date Record ed Patient needs follow up regardin 08/12/2024 Housing Stability Answer Date Recorded Social/Environmental Concerns No concerns Utility Needs Answer Date Recorded Patient needs follow up regardin 08/12/2024 Sex and Gender Information Value Date Recorded Sex Assigned at Not on file Legal Sex Male 6:04 AM LOCATION WORKER Gender Identity Not on file Sexual Orientation Not on file documented as of this encounter Plan of Treatment Upcoming Encounters Date Type Department Care Team (Late st Contact Info) Description 03/22/2025 12:30 PM LOCATION WORKER Office Visit [facility] Physical Med and Rehab [facility] [address] [facility] [address] [place] [phone] William Cardozo MD [address] [facility] [address] [place] [phone] 03/23/2025 10:50 AM LOCATION WORKER Appointment [facility] Miriam Iniguez Laboratory Services [address] [facility] [address] [place] [address] 03/30/2025 7:50 AM LOCATION WORKER Office Visit [facility] Cancer and Hematology [place] [address] [place] [phone] Jignesh Geiger NP [address] [facility] [address] [place] [phone] documented as of this encounter Visit Diagnoses Not on filedocumented in this encounter Additional Health Concerns Infection Onset Date Last Indicated Resolved Time C Diff Comment:01/20/25: Patient continues to report symptoms of C. Diff and will need to remain in enteric contact isolation. Zohaib Angulo RN, Infection Prevention 12/10/2024 12/10/2024 02/08/2025 10:22 PM CDT MRSA 01/20/2025 01/20/2025 02/19/2025 10:2 1 PM CDT Assessment Noted Time PHQ-9 Depression Total Score: 2 01/10/20 24 3:01 PM CDT documented as of this encounter Care Teams Registered Nursing Professor Relationship Specialty Start Date End Date Sade Glaser, Physician Pc, MD PCP - General Family Practice 02/18/25 documented as of this encounter
--- OUTSIDE RECORDS SUMMARY | 2025-03-14 17:22 | XMS_ITS | Encounter Summary ---
Author Organization [facility] Address [address] [place] [address] Care Team Providers Care Account Installer Name Role Phone Cc Amb, Physician Pc MD Primary Care Provider Un available Encounter Details Date Type Department Care Team (Late st Contact Info) Description 02/12/2021 Lab Requisition [facility] Laboratory Services [address] [place] [address] [place] [phone] Denzel Kuo MD [id number] [place] [phone] Social History Tobacco Use Types Packs/Day [...] declined 06/14/2020 How often do you attend shinto or adventism serv ices? Patient declined 06/14/2020 Do you belong to any clubs o r organizations such as shinto groups, unions, fraternal or athletic groups, or [...] on file Legal Sex Male 6:04 AM CONSUMER EXPERIENCE CONSULTANT Gender Identity Not on file Sexual Orientation [...] st Contact Info) Description 03/22/2025 12:30 PM CONSUMER EXPERIENCE CONSULTANT Office Visit [facility] Physical Med [facility] Rehab [facility] [address] [phone] William Cardozo MD [address] [place] [phone] 03/23/2025 10:50 AM CONSUMER EXPERIENCE CONSULTANT Appointment [facility] Chub [facility] Laboratory Services [address] [place] [address] 03/30/2025 7:50 AM CONSUMER EXPERIENCE CONSULTANT Office Visit [facility] Cancer and Hematology [place] [address] [place] [address] Jignesh Geiger NP [address] [place] [address] documented as of this encounter Procedures Procedure Name Priority Date/Time Associated Diagnosis Comments RENAL FUNCTION PANEL Routine 02/12/2021 4:07 AM CDT documented in this encounter Results * (ABNORMAL) RENAL FUNCTION PANEL (02/12/2021 4:07 AM CDT) SODIUM 136 136 - 145 mmol/L 02/12/2021 6:45 AM CDT [facility] POTASSIUM 3.4(L) 3.5 - 5.1 mmol/L 02/12/2021 6:45 AM CDT [facility] CHLORIDE 97(L) 98 - 107 mmol/L 02/12/2021 6:45 AM CDT [facility] [employer] [facility] CO2 29 22 - 29 mmol/L 02/12/2021 6:45 AM CDT [facility] [employer] [facility] CALCIUM 8.9 8.6 - 10.0 mg/dL 02/12/2021 6:45 AM CDT [facility] BUN 20 6 - 20 mg/dL 02/12/2021 6:45 AM CDT [facility] CREATININE 2.93(H) 0.67 - 1.17 mg/dL 02/12/2021 6:45 AM CDT [facility] GLUCOSE 103(H) 74 - 99 mg/dL 02/12/2021 6:[address] [facility] ALBUMIN 2.5(L) 3.5 - 5.2 g/dL 02/12/2021 6:[address] [facility] PHOSPHORUS 4.4 2.5 - 4.5 mg/dL 02/12/2021 6:45 AM T [facility] GFR 25 mL/min/1. 73 sq meter 02/12/2021 6:[address] [facility] Comment: eGFR has not been validated for [...] please refer to the GFR result. GFR, 31 mL/min/1. 73 sq meter 02/12/2021 6:45 AM T [facility] ANION GAP 10 9 - 20 mmol/L 02/12/2021 6:[address] [facility] Blood Collection / Unknown 02/12/2021 4:07 AM CDT 02/12/2021 6:19 AM CDT us Denzel Kuo MD CHEMISTRY ORDERABLES Final Resu lt [facility] CLIA # [id number] [facility] [address] [address] documented in this encounter Visit Diagnoses Not on filedocumented in this encounter Additional Health Concerns Infection Onset Date Last Indicated Resolved Time R/O COVID-19 01/30/2022 01/30/2022 01/30/2022 6:48 PM CDT C Diff 01/30/2022 02/05/2022 04/06/2022 1:16 AM CONSUMER EXPERIENCE CONSULTANT R/O GI Pathogen 05/07/2023 05/07/2023 05/09/2023 3 :52 PM CONSUMER EXPERIENCE CONSULTANT R/O Respiratory 11/15/2024 11/15/2024 11/15/2024 1 1:33 [...] documented as of this encounter Care Teams Account Installer Relationship Specialty Start Date End Date Cc Jailyn, Physician Pc, MD PCP - General Family Practice 02/18/25 documented as of this encounter
--- OUTSIDE RECORDS SUMMARY | 2025-03-14 17:22 | XMS_ITS | Encounter Summary ---
Author Organization [facility] Address [address] [place] [address] Care Team Providers Care Tandem Operator Name Role Phone Cc Amb, Physician Pc MD Primary Care Provider Un available Encounter Details Date Type Department Care Team (Late st Contact Info) Description 02/16/2021 Lab Requisition [facility] Laboratory Services [address] [place] [address] [place] [phone] Denzel Kuo [place] [id number] [place] [phone] Social History Tobacco Use Types Packs/Day [...] declined 06/14/2020 How often do you attend mu-ism or baptist serv ices? Patient declined 06/14/2020 Do you belong to any clubs o r organizations such as mu-ism groups, unions, fraternal or athletic groups, or [...] on file Legal Sex Male 6:04 AM BIODIESEL ENGINEERING MANAGER Gender Identity Not on file Sexual Orientation [...] st Contact Info) Description 03/22/2025 12:30 PM BIODIESEL ENGINEERING MANAGER Office Visit [facility] Physical Med and Rehab [facility] [address] [phone] William Cardozo MD [address] [place] [phone] 03/23/2025 10:50 AM BIODIESEL ENGINEERING MANAGER Appointment [facility] Laboratory Services [address] [place] [address] 03/30/2025 7:50 AM BIODIESEL ENGINEERING MANAGER Office Visit [facility] Cancer and Hematology [place] [address] [place] [address] Jignesh Geiger NP [address] [place] [address] documented as of this encounter Procedures Procedure Name Priority Date/Time Associated Diagnosis Comments CBC WITH DIFFERENTIAL Routine 02/16/2021 4:00 AM CDT MAGNESIUM LEVEL Routine 02/16/2021 4:00 AM CDT RENAL FUNCTION PANEL Routine 02/16/2021 4:00 AM CDT documented in this encounter Results * (ABNORMAL) CBC WITH DIFFERENTIAL (02/16/2021 4:00 AM CDT) WBC 9.6 4.5 - 11.0 K/uL 02/16/2021 7:32 AM CDT [facility] RBC 3.76(L) 4.60 - 6.20 M/uL 02/16/2021 7:32 AM CDT [facility] HEMOGLOBIN 9.8(L) 14.0 - 18.0 g/dL 02/16/2021 7:32 AM CDT [facility] HEMATOCRIT 31.7(L) 41.0 - 53.0 % 02/16/2021 7:32 AM CDT [facility] MCV 84.3 84.0 - 103.0 fL 02/16/2021 7:[address] [facility] MCH 26.1(L) 27.0 - 34.0 pg 02/16/2021 7:32 AM [facility] MCHC 30.9 30.0 - 35.0 g/dL 02/16/2021 7:32 AM [facility] RDW 15.9(H) 11.0 - 14.5 % 02/16/2021 7:32 [address] [facility] [address] Right [facility] RDW-STDEV 48.5 37.0 - 54.0 fL 02/16/2021 7:32 AM [facility] [address] Right [facility] PLATELETS 292 140 - 440 K/uL 02/16/2021 7:[address] [facility] [address] Right [facility] MPV 9.2 8.9 - 12.8 fL 02/16/2021 7:32 AM [facility] NEUTROPHILS 74 42 - 75 % 02/16/2021 7:32 AM [facility] LYMPHOCYTES 16(L) 24 - 44 % 02/16/2021 7:32 [address] [facility] [address] Right [facility] MONOCYTES 7 2 - 10 % 02/16/2021 7:32 [address] [facility] [address] Right [facility] EOSINOPHILS 2 0 - 7 % 02/16/2021 7:32 AM [facility] BASOPHILS 0 0 - 1 % 02/16/2021 7:32 AM [facility] IMMATURE GRANULOCYTES 1 0 - 2 % 02/16/2021 7:32 AM [facility] NEUTROPHIL ABSOLUTE 7.10 2.00 - 8.00 K/uL 02/16/2021 7:32 AM [facility] LYMPHOCYTE ABSOLUTE 1.55 1.20 - 4.00 K/uL 02/16/2021 7:32 [address] [facility] [address] Right [facility] MONOCYTE ABSOLUTE 0.63(H) 0.10 - 0.60 K/uL 02/16/2021 7:32 AM [facility] EOSINOPHIL ABSOLUTE 0.18 0.00 - 0.70 K/uL 02/16/2021 7:32 AM [facility] BASOPHILS ABSOLUTE 0.04 0.00 - 0.20 K/uL 02/16/2021 7:32 AM CDT [facility] IMMATURE GRANULOCYTES ABSOLUTE 0.09 0.00 - 0.10 K/uL 02/16/2021 7:32 AM CDT [facility] Blood Collection / Unknown 02/16/2021 4:00 AM CDT 02/16/2021 7:23 AM CDT Denzel Kuo MD HEMATOLOGY ORDERABLES Final Res ult Performing Organization Address City/[facility]/ZIP Co de Phone Number [facility] CLIA # [id number] [address] [address] * MAGNESIUM LEVEL (02/16/2021 4:00 AM CDT) MAGNESIUM 2.3 1.6 - 2.6 mg/dL 02/16/2021 8:21 AM CDT [facility] Blood Collection / Unknown 02/16/2021 4:00 AM CDT 02/16/2021 7:24 AM CDT Denzel Kuo MD CHEMISTRY ORDERABLES Final Resu lt Performing Organization Address City/[facility]/ZIP Co de Phone Number [facility] CLIA # [id number] [address] [address] * (ABNORMAL) RENAL FUNCTION PANEL (02/16/2021 4:00 AM CDT) SODIUM 136 136 - 145 mmol/L 02/16/2021 8:31 AM CDT [facility] POTASSIUM 4.4 3.5 - 5.1 mmol/L 02/16/2021 8:31 AM CDT [facility] CHLORIDE 98 98 - 107 mmol/L 02/16/2021 8:31 AM CDT [facility] CO2 27 22 - 29 mmol/L 02/16/2021 8:31 AM [facility] CALCIUM 9.3 8.6 - 10.0 mg/dL 02/16/2021 8:31 AM [facility] BUN 43(H) 6 - 20 mg/dL 02/16/2021 8:31 AM [facility] CREATININE 3.55(H) 0.67 - 1.17 mg/dL 02/16/2021 8:31 AM [facility] GLUCOSE 43(LL) 74 - 99 mg/dL 02/16/2021 8:31 AM [facility] ALBUMIN 2.8(L) 3.5 - 5.2 g/dL 02/16/2021 8:31 AM [facility] PHOSPHORUS 4.0 2.5 - 4.5 mg/dL 02/16/2021 8:31 AM [facility] GFR 20 mL/min/1. 73 sq meter 02/16/2021 8:31 AM [facility] Comment: eGFR has not been validated for [...] please refer to the GFR result. GFR, 25 mL/min/1. 73 sq meter 02/16/2021 8:31 AM [facility] ANION GAP 11 9 - 20 mmol/L 02/16/2021 8:31 AM [facility] Blood Collection / Unknown 02/16/2021 4:00 AM CDT 02/16/2021 7:24 AM CDT us Denzel Kuo MD CHEMISTRY ORDERABLES Final Resu lt [id number] [address] [address] [place] [address] documented in this encounter Visit Diagnoses Not on filedocumented in this encounter Additional Health Concerns Infection Onset Date Last Indicated Resolved Time R/O COVID-19 01/30/2022 01/30/2022 01/30/2022 6:48 PM CDT C Diff 01/30/2022 02/05/2022 04/06/2022 1:16 AM BIODIESEL ENGINEERING MANAGER R/O GI Pathogen 05/07/2023 05/07/2023 05/09/2023 3 :52 PM BIODIESEL ENGINEERING MANAGER R/O Respiratory 11/15/2024 11/15/2024 11/15/2024 1 1:33 [...] to remain in enteric contact isolation. Zohaib Anguol RN, Infection Prevention 12/10/2024 12/10/2024 02/08/2025 10:22 PM CDT MRSA 01/20/2025 01/20/2025 02/19/2025 10:2 1 PM CDT Assessment Noted Time PHQ-9 Depression Total Score: 2 02/17/20 12:27 PM CDT documented as of this encounter Care Teams Tandem Operator Relationship Specialty Start Date End Date Cc Amb, Physician Pc, MD PCP - General Family Practice 02/18/25 documented as of this encounter
--- OUTSIDE RECORDS SUMMARY | 2025-03-14 17:22 | XMS_ITS | Encounter Summary ---
Author Organization [facility] Address [address] [place] [address] Care Team Providers Care Hollow Handle Bench Worker Name Role Phone Cc Amb, Physician Pc MD Primary Care Provider Un available Encounter Details Date Type Department Care Team (Late st Contact Info) Description 02/09/2021 Lab Requisition [facility] Laboratory Services [address] [place] [address] [place] [phone] Lurdes Cabrera MD [address] [place] [address] Social History Tobacco Use Types [...] declined 06/14/2020 How often do you attend baptism or mormon serv ices? Patient declined 06/14/2020 Do you belong to any clubs o r organizations such as baptism groups, unions, fraternal or athletic groups, or [...] on file Legal Sex Male 6:04 AM CEMENT CONVEYOR OPERATOR Gender Identity Not on file Sexual Orientation [...] st Contact Info) Description 03/22/2025 12:30 PM CEMENT CONVEYOR OPERATOR Office Visit [facility] Physical Med and Rehab [facility] [address] [place] [phone] William Cardozo MD [address] [place] [address] 03/23/2025 10:50 AM CEMENT CONVEYOR OPERATOR Appointment [facility] Cancer [facility] [place] Laboratory Services [address] [place] [address] 03/30/2025 7:50 AM CEMENT CONVEYOR OPERATOR Office Visit [facility] Cancer and Hematology [place] [address] [place] [address] Jignesh Geiger NP [address] [place] [address] documented as of this encounter Procedures Procedure Name Priority Date/Time Associated Diagnosis Comments C. DIFFICILE DETECTION Routine 02/09/2021 10:50 AM CDT documented in this encounter Results * C. DIFFICILE DETECTION (02/09/2021 10:50 AM CDT) TOXIGENIC C DIFFICILE NOT DETECTED Not Detected 02/09/2021 1:43 PM CDT [facility] Stool STOOL SPECIMEN / Unknown Collection / Unknown 02/09/2021 10:50 AM CDT 02/09/2021 12:49 PM CDT Narrative [facility] - 02/09/2021 1:43 PM CDT This assay is used to detect Toxigenic C. difficile target(B gene) DNA sequences in unformed stool specimens. If toxigenic C. difficile is not detected, but clinical suspicion is high please consult ID for consultation and potential repeat testing. This test should not be used as a test of cure. us Lurdes Cabrera MD MICROBIOLOGY - G ENERAL ORDERABLES Final Result [facility] [employer] [facility] CLIA # [id number] [address] [facility] [place] [address] documented in this encounter Visit Diagnoses Not on filedocumented in this encounter Additional Health Concerns Infection Onset Date Last Indicated Resolved Time R/O COVID-19 01/30/2022 01/30/2022 01/30/2022 6:48 PM CDT C Diff 01/30/2022 02/05/2022 04/06/2022 1:16 AM CEMENT CONVEYOR OPERATOR R/O GI Pathogen 05/07/2023 05/07/2023 05/09/2023 3 :52 PM CEMENT CONVEYOR OPERATOR R/O Respiratory 11/15/2024 11/15/2024 11/15/2024 1 1:33 [...] documented as of this encounter Care Teams Hollow Handle Bench Worker Relationship Specialty Start Date End Date Cc Jailyn, Physician Pc, MD PCP - General Family Practice 02/18/25 documented as of this encounter
--- OUTSIDE RECORDS SUMMARY | 2025-03-14 17:22 | XMS_ITS | Encounter Summary ---
Author Organization [facility] Address [address] [place] [address] Care Team Providers Care Support Service Tech Name Role Phone Cc Amb, Physician Pc MD Primary Care Provider Un available Encounter Details Date Type Department Care Team (Late st Contact Info) Description 02/14/2021 Lab Requisition [facility] Laboratory Services [address] [place] [phone] Denzel Kuo [place] [id number] [place] [phone] Social History Tobacco Use Types Packs/Day [...] How often do you attend temple or scientology serv ices? Patient declined 06/14/2020 Do you [...] on file Legal Sex Male 6:04 AM POLICE INSPECTOR Gender Identity Not on file Sexual Orientation [...] st Contact Info) Description 03/22/2025 12:30 PM POLICE INSPECTOR Office Visit [facility] Physical Med and Rehab [facility] [address] [phone] William Cardozo MD [address] [place] [phone] 03/23/2025 10:50 AM POLICE INSPECTOR Appointment [facility] Laboratory Services [address] [place] [address] 03/30/2025 7:50 AM POLICE INSPECTOR Office Visit [facility] Cancer and Hematology [place] [address] [place] [address] Jignesh Geiger NP [address] [place] [address] documented as of this encounter Procedures Procedure Name Priority Date/Time Associated Diagnosis Comments CBC WITH DIFFERENTIAL Routine 02/14/2021 3:35 AM CDT MAGNESIUM LEVEL Routine 02/14/2021 3:35 AM CDT RENAL FUNCTION PANEL Routine 02/14/2021 3:35 AM CDT documented in this encounter Results * (ABNORMAL) CBC WITH DIFFERENTIAL (02/14/2021 3:35 AM CDT) WBC 9.8 4.5 - 11.0 K/uL 02/14/2021 6:16 AM CDT [facility] RBC 3.91(L) 4.60 - 6.20 M/uL 02/14/2021 6:16 AM CDT [facility] HEMOGLOBIN 10.4(L) 14.0 - 18.0 g/dL 02/14/2021 6:16 AM CDT [facility] HEMATOCRIT 33.1(L) 41.0 - 53.0 % 02/14/2021 6:16 AM CDT [facility] MCV 84.7 84.0 - 103.0 fL 02/14/2021 6:16 AM CDT [facility] MCH 26.6(L) 27.0 - 34.0 pg 02/14/2021 6:16 AM [facility] MCHC 31.4 30.0 - 35.0 g/dL 02/14/2021 6:16 AM [facility] RDW 16.4(H) 11.0 - 14.5 % 02/14/2021 6:16 AM [facility] RDW-STDEV 49.9 37.0 - 54.0 fL 02/14/2021 6:16 AM [facility] PLATELETS 330 140 - 440 K/uL 02/14/2021 6:16 AM [facility] MPV 9.3 8.9 - 12.8 fL 02/14/2021 6:16 AM [facility] NEUTROPHILS 72 42 - 75 % 02/14/2021 6:16 AM [facility] LYMPHOCYTES 19(L) 24 - 44 % 02/14/2021 6:16 AM [facility] MONOCYTES 7 2 - 10 % 02/14/2021 6:16 AM [facility] EOSINOPHILS 1 0 - 7 % 02/14/2021 6:16 AM [facility] BASOPHILS 0 0 - 1 % 02/14/2021 6:16 AM [facility] IMMATURE GRANULOCYTES 2 0 - 2 % 02/14/2021 6:16 AM [facility] NEUTROPHIL ABSOLUTE 7.06 2.00 - 8.00 K/uL 02/14/2021 6:16 AM [facility] LYMPHOCYTE ABSOLUTE 1.82 1.20 - 4.00 K/uL 02/14/2021 6:16 AM [facility] MONOCYTE ABSOLUTE 0.66(H) 0.10 - 0.60 K/uL 02/14/2021 6:16 AM [facility] EOSINOPHIL ABSOLUTE 0.09 0.00 - 0.70 K/uL 02/14/2021 6:16 AM CDT [facility] BASOPHILS ABSOLUTE 0.03 0.00 - 0.20 K/uL 02/14/2021 6:16 AM CDT [facility] IMMATURE GRANULOCYTES ABSOLUTE 0.16(H) 0.00 - 0.10 K/uL 02/14/2021 6:16 AM CDT [facility] Blood Collection / Unknown 02/14/2021 3:35 AM CDT 02/14/2021 6:13 AM CDT Denzel Kuo MD HEMATOLOGY ORDERABLES Final Res ult Performing Organization Address [facility] Co de Phone Number [facility] CLIA # [id number] [address] [address] * (ABNORMAL) MAGNESIUM LEVEL (02/14/2021 3:35 AM CDT) MAGNESIUM 2.7(H) 1.6 - 2.6 mg/dL 02/14/2021 6:32 AM CDT [facility] Blood Collection / Unknown 02/14/2021 3:35 AM CDT 02/14/2021 6:12 AM CDT Denzel Kuo MD CHEMISTRY ORDERABLES Final Resu lt Performing Organization Address City/[facility]/ZIP Co de Phone Number [facility] CLIA # [id number] [address] [address] * (ABNORMAL) RENAL FUNCTION PANEL (02/14/2021 3:35 AM CDT) SODIUM 137 136 - 145 mmol/L 02/14/2021 6:32 AM CDT [facility] POTASSIUM 3.5 3.5 - 5.1 mmol/L 02/14/2021 6:32 AM CDT [facility] CHLORIDE 95(L) 98 - 107 mmol/L 02/14/2021 6:32 AM [facility] CO2 28 22 - 29 mmol/L 02/14/2021 6:32 AM [facility] CALCIUM 9.4 8.6 - 10.0 mg/dL 02/14/2021 6:32 AM [facility] BUN 55(H) 6 - 20 mg/dL 02/14/2021 6:32 AM [facility] CREATININE 4.72(H) 0.67 - 1.17 mg/dL 02/14/2021 6:32 AM [facility] GLUCOSE 53(L) 74 - 99 mg/dL 02/14/2021 6:32 AM [facility] ALBUMIN 2.8(L) 3.5 - 5.2 g/dL 02/14/2021 6:32 AM [facility] PHOSPHORUS 5.8(H) 2.5 - 4.5 mg/dL 02/14/2021 6:32 AM [facility] GFR 15 mL/min/1. 73 sq meter 02/14/2021 6:32 AM [facility] Comment: eGFR has not been [...] please refer to the GFR result. GFR, 18 mL/min/1. 73 sq meter 02/14/2021 6:32 AM [facility] ANION GAP 14 9 - 20 mmol/L 02/14/2021 6:32 AM [facility] Blood Collection / Unknown 02/14/2021 3:35 AM CDT 02/14/2021 6:12 AM CDT Denzel Kuo MD CHEMISTRY ORDERABLES Final Resu lt [facility] # [id number] [address] [address] [place] [address] documented in this encounter Visit Diagnoses Not on filedocumented in this encounter Additional Health Concerns Infection Onset Date Last Indicated Resolved Time R/O COVID-19 01/30/2022 01/30/2022 01/30/2022 6:48 PM CDT C Diff 01/30/2022 02/05/2022 04/06/2022 1:16 AM POLICE INSPECTOR R/O GI Pathogen 05/07/2023 05/07/2023 05/09/2023 3 :52 PM POLICE INSPECTOR R/O Respiratory 11/15/2024 11/15/2024 11/15/2024 1 1:33 [...] documented as of this encounter Care Teams Support Service Tech Relationship Specialty Start Date End Date Cc Jailyn, Physician Pc, MD PCP - General Family Practice 02/18/25 documented as of this encounter
--- OUTSIDE RECORDS SUMMARY | 2025-03-14 17:22 | XMS_ITS | Encounter Summary ---
Author Organization [facility] Address [address] [place] [address] Care Team Providers Care Email Campaign Manager Name Role Phone Cc Amb, Physician Pc MD Primary Care Provider Un available Encounter Details Date Type Department Care Team (Late st Contact Info) Description 02/07/2021 Lab Requisition [facility] Laboratory Services [address] [place] [phone] Lurdes Cabrera MD [address] [place] [address] Social History Tobacco Use Types [...] declined 06/14/2020 How often do you attend anglican or mormonism serv ices? Patient declined 06/14/2020 Do you belong to any clubs o r organizations such as anglican groups, unions, fraternal or athletic groups, or [...] file Legal Sex Male 6:04 AM MEAT SUPERVISOR Gender Identity Not on file Sexual Orientation [...] Contact Info) Description 03/22/2025 12:30 PM MEAT SUPERVISOR Office Visit [facility] Physical Med and Rehab [facility] [address] [place] [address] William Cardozo MD [address] [place] [phone] 03/23/2025 10:50 AM MEAT SUPERVISOR Appointment [facility] Laboratory Services [address] [place] [address] 03/30/2025 7:50 AM MEAT SUPERVISOR Office Visit [facility] Cancer and Hematology [place] [address] [place] [address] Jignesh Geiger NP [address] [place] [address] documented as of this encounter Procedures Procedure Name Priority Date/Time Associated Diagnosis Comments DIFFERENTIAL, MANUAL Routine 02/07/2021 3:30 AM CDT IRON, TIBC, AND PERCENT SATURATION Routine 02/07/2021 3:30 AM CDT CBC WITH DIFFERENTIAL Routine 02/07/2021 3:30 AM CDT PHOSPHORUS Routine 02/07/2021 3:30 AM CDT MAGNESIUM LEVEL Routine 02/07/2021 3:30 AM CDT FERRITIN Routine 02/07/2021 3:30 AM CDT COMPREHENSIVE METABOLIC PANEL Routine 02/07/2021 3:30 AM CDT documented in this encounter Results * (ABNORMAL) MANUAL DIFFERENTIAL (02/07/2021 3:30 AM CDT) SEGMENTED NEUTROPHILS 80(H) 36 - 66 % 02/07/2021 7:33 AM CDT [facility] LABORATORY [facility] LYMPHOCYTES RELATIVE 6(L) 24 - 44 % 02/07/2021 7:33 AM CDT [facility] MONOCYTES RELATIVE 6 4 - 10 % 02/07/2021 7:33 AM T [facility] METAMYELOCYTES RELATIVE 4(H) 0 - 1 % 02/07/2021 7:33 AM CDT [facility] MYELOCYTES - REL (DIFF) 4(H) 0 - 1 % 02/07/2021 7:33 AM T [facility] NEUTROPHILS ABSOLUTE COUNT 6.96 2.00 - 8.00 K/uL 02/07/2021 7:33 AM T [facility] LYMPHOCYTES ABSOLUTE 0.52(L) 1.20 - 4.00 K/uL 02/07/2021 7:33 AM T [facility] MONOCYTES ABSOLUTE 0.52 0.10 - 0.60 K/uL 02/07/2021 7:33 AM CDT [facility] TOTAL CELLS COUNTED IN DIFF 100 02/07/2021 7:33 AM T [facility] PLATELET EST. Consistent w Count 02/07/2021 7:33 AM T [facility] ANISOCYTOSIS 1+ /hpf 02/07/2021 7:33 AM T [facility] POIKILOCYTES 1+ /hpf 02/07/2021 7:33 AM T [facility] POLYCHROMASIA 1+ /hpf 02/07/2021 7:33 AM T [facility] Blood Collection / Unknown 02/07/2021 3:30 AM CDT 02/07/2021 7:05 AM CDT us Lurdes Cabrera MD HEMATOLOGY ORDER AILYN COM Final Result [facility] CLIA # [id number] [address] [address] [place] [address] * (ABNORMAL) CBC WITH DIFFERENTIAL (02/07/2021 3:30 AM CDT) [facility] WBC 8.7 4.5 - 11.0 K/uL 02/07/2021 7:33 AM T [facility] RBC 3.48(L) 4.60 - 6.20 M/uL 02/07/2021 7:[address] [facility] HEMOGLOBIN 9.2(L) 14.0 - 18.0 g/dL 02/07/2021 7:33 AM T [facility] HEMATOCRIT 30.5(L) 41.0 - 53.0 % 02/07/2021 7:[address] [facility] MCV 87.6 84.0 - 103.0 fL 02/07/2021 7:[address] [facility] MCH 26.4(L) 27.0 - 34.0 pg 02/07/2021 7:[address] [facility] MCHC 30.2 30.0 - 35.0 g/dL 02/07/2021 7:[address] [facility] RDW 15.3(H) 11.0 - 14.5 % 02/07/2021 7:[address] [facility] RDW-STDEV 47.5 37.0 - 54.0 fL 02/07/2021 7:[address] [facility] PLATELETS 448(H) 140 - 440 K/uL 02/07/2021 7:[address] [facility] MPV 10.1 8.9 - 12.8 fL 02/07/2021 7:33 AM T [facility] Blood Collection / Unknown 02/07/2021 3:30 AM CDT 02/07/2021 7:05 AM CDT us Lurdes Cabrera MD HEMATOLOGY ORDER AILYN Final Result [facility] CLIA # [id number] [address] [address] [place] [address] * (ABNORMAL) IRON, TIBC, AND PERCENT SATURATION (02/07/2021 3:30 AM CDT) IRON 68 59 - 158 ug/dL 02/07/2021 7:35 AM CDT [facility] TIBC 179(L) 250 - 450 ug/dL 02/07/2021 7:35 AM CDT [facility] IRON % SATURATION 38 15 - 60 % 02/07/2021 7:35 AM CDT [facility] Blood Collection / Unknown 02/07/2021 3:30 AM CDT 02/07/2021 7:04 AM CDT Lurdes Cabrera MD CHEMISTRY ORDERA BLES Final Result [facility] CLIA # [id number] [address] [address] [place] [address] * FERRITIN (02/07/2021 3:30 AM CDT) FERRITIN 270.7 30.0 - 400.0 ng/mL 02/07/2021 7:35 AM CDT [facility] Blood Collection / Unknown 02/07/2021 3:30 AM CDT 02/07/2021 7:04 AM CDT us Lurdes Cabrera MD CHEMISTRY ORDERA BLES Final Result [facility] CLIA # [id number] [address] [facility] [place] [address] * (ABNORMAL) PHOSPHORUS (02/07/2021 3:30 AM CDT) PHOSPHORUS 9.2(H) 2.5 - 4.5 mg/dL 02/07/2021 7:30 AM CDT [facility] Blood Collection / Unknown 02/07/2021 3:30 AM CDT 02/07/2021 7:05 AM CDT us Lurdes Cabrera MD CHEMISTRY ORDERA BLES Final Result Performing Organization Address [facility]/ZIP Co de Phone Number [facility] CLIA # [id number] [address] [address] [place] [address] * (ABNORMAL) MAGNESIUM LEVEL (02/07/2021 3:30 AM CDT) Pathologist [facility] MAGNESIUM 2.9(H) 1.6 - 2.6 mg/dL 02/07/2021 7:30 AM CDT [facility] Blood Collection / Unknown 02/07/2021 3:30 AM CDT 02/07/2021 7:05 AM CDT us Lurdes Cabrera MD CHEMISTRY ORDERA BLES Final Result Performing Organization Address [facility] Co de Phone Number [facility] CLIA # [id number] [address] [address] * (ABNORMAL) COMPREHENSIVE METABOLIC PANEL (02/07/2021 3:30 AM CDT) SODIUM 134(L) 136 - 145 mmol/L 02/07/2021 7:30 AM CDT [facility] POTASSIUM 5.6(H) 3.5 - 5.1 mmol/L 02/07/2021 7:30 AM CDT [facility] CHLORIDE 93(L) 98 - 107 mmol/L 02/07/2021 7:30 AM CDT [facility] CO2 24 22 - 29 mmol/L 02/07/2021 7:30 AM CDT [facility] CALCIUM 8.9 8.6 - 10.0 mg/dL 02/07/2021 7:[address] [facility] BUN 69(H) 6 - 20 mg/dL 02/07/2021 7:[address] [facility] CREATININE 5.52(H) 0.67 - 1.17 mg/dL 02/07/2021 7:[address] [facility] GLUCOSE 123(H) 74 - 99 mg/dL 02/07/2021 7:[address] [facility] TOTAL PROTEIN 6.6 6.4 - 8.3 g/dL 02/07/2021 7:[address] [facility] ALBUMIN 2.5(L) 3.5 - 5.2 g/dL 02/07/2021 7:[address] [facility] BILIRUBIN TOTAL 0.2 0.2 - 1.0 mg/dL 02/07/2021 7:[address] [facility] ALKALINE PHOSPHATASE 355(H) 40 - 129 U/L 02/07/2021 7:[address] [facility] AST 55(H) 10 - 50 U/L 02/07/2021 7:[address] [facility] ALT 74(H) <=50 U/L 02/07/2021 7:[address] [facility] GFR 12 mL/min/1. 73 sq meter 02/07/2021 7:[address] [facility] Comment: eGFR has not been [...] please refer to the GFR result. GFR, 15 mL/min/1. 73 sq meter 02/07/2021 7:[address] [facility] ANION GAP 17 9 - 20 mmol/L 02/07/2021 7:30 AM CDT [facility] Blood Collection / Unknown 02/07/2021 3:30 AM CDT 02/07/2021 7:05 AM CDT us Lurdes Cabrera MD CHEMISTRY ORDERA BLES Final Result [facility] CLIA # [id number] [address] [address] [place] [address] documented in this encounter Visit Diagnoses Not on filedocumented in this encounter Additional Health Concerns Infection Onset Date Last Indicated Resolved Time COVID-19 01/18/2021 01/18/2021 02/07/2021 1:16 AM CDT R/O COVID-19 01/30/2022 01/30/2022 01/30/2022 6:48 PM CDT C Diff 01/30/2022 02/05/2022 04/06/2022 1:16 AM MEAT SUPERVISOR R/O GI Pathogen 05/07/2023 05/07/2023 05/09/2023 3 :52 PM MEAT SUPERVISOR R/O Respiratory 11/15/2024 11/15/2024 11/15/2024 1 1:33 [...] documented as of this encounter Care Teams Email Campaign Manager Relationship Specialty Start Date End Date Cc Jailyn, Physician Pc, MD PCP - General Family Practice 02/18/25 documented as of this encounter
--- OUTSIDE RECORDS SUMMARY | 2025-03-14 17:22 | XMS_ITS | Encounter Summary ---
Author Organization [facility] Address [address] [place] [address] Care Team Providers Care Flag Car Driver Name Role Phone Cc Amb, Physician Pc MD Primary Care Provider Un available Encounter Details Date Type Department Care Team (Late st Contact Info) Description 03/11/2025 Orders Only [facility] Information Management [place] [address] [place] [address] Provider, Abstract NO ADDRESS ON FILE Social History Tobacco Use Types Packs/Day Years [...] 05/03/2021 How often do you attend chur or mosque services? More than 4 times per year 05/03/2021 Do you belong to any clubs o r organizations such as buddhism groups, unions, fraternal or athletic groups, or [...] any time in the past 12 m [facility], were you homeless or living in a [facility] (including now)? No 05/03/2021 Food Insecurity Answer Date Recorded Do you find you are eating l ess than you should because you can t pay for food? No 01/20/2025 Transportation Needs Answer Date Record ed Have you gone without health care because you didn t have a way to get there? Or worry about transportation for future doctor visits, hot die picker medication, etc.? No 2024 Housing Stability Answer [...] on file Legal Sex Male 6:04 AM CONSTITUTIONAL LAW PROFESSOR Gender Identity Not on file Sexual Orientation Not on file documented as of this encounter Plan of Treatment Upcoming Encounters Date Type Department Care Team (Late st Contact Info) Description 03/22/2025 12:30 PM CONSTITUTIONAL LAW PROFESSOR Office Visit [facility] Physical Med and Rehab [facility] [address] [place] [address] William Cardozo MD [address] [facility] [address] [place] [phone] 03/23/2025 10:50 AM CONSTITUTIONAL LAW PROFESSOR Appointment [facility] Cancer [facility] Miriam Grijal[facility]ailly Laboratory Services [address] [place] [address] 03/30/2025 7:50 AM CONSTITUTIONAL LAW PROFESSOR Office Visit [facility] Cancer and Hematology [place] [address] [place] [address] Jignesh Geiger NP [address] [place] [address] documented as of this encounter Procedures Procedure Name Priority Date/Time Associated Diagnosis Comments COMPREHENSIVE METABOLIC PANEL Routine 02/15/2025 9:48 AM CDT BASIC METABOLIC PANEL Routine 02/08/2025 9:48 AM CDT documented in this encounter Results * COMPREHENSIVE METABOLIC PANEL (02/15/2025 9:48 AM CDT) Blood us Abstract Provider CHEMISTRY ORDERABLES Final Res ult * BASIC METABOLIC PANEL (02/08/2025 9:48 AM CDT) Blood us Abstract Provider CHEMISTRY ORDERABLES Final Res ult documented in this encounter Visit Diagnoses Not on filedocumented in this encounter Additional Health Concerns Assessment Noted Time PHQ-9 Depression Total Score: 2 01/10/20 24 3:01 PM CDT documented as of this encounter Care Teams Flag Car Driver Relationship Specialty Start Date End Date Cc Jailyn, Physician Pc, MD PCP - General Family Practice 02/18/25 documented as of this encounter
--- OUTSIDE RECORDS SUMMARY | 2025-03-14 17:22 | XMS_ITS | Encounter Summary ---
Author Organization [facility] Address [address] [place] [address] Care Team Providers Care Assistant Printer Floor Covering Name Role Phone Cc Amb, Physician Pc MD Primary Care Provider Un available Encounter Details Date Type Department Care Team (Late st Contact Info) Description 03/10/2025 Orders Only [facility] Cancer and Hematology [place] [address] [place] [address] Lola Skaggs Low serum copper level (Primary Dx) Social History Tobacco Use Types Packs/Day Years [...] often do you attend chur ch or restorationist services? More than 4 times per year 05/03/2021 Do you belong to any clubs o r organizations such as scientology groups, unions, fraternal or athletic groups, or [...] any time in the past 12 m [facility], were you homeless or living in a [place] [facility] (including now)? No 05/03/2021 Food Insecurity Answer Date Recorded Do you find you are eating l ess than you should because you can t pay for food? No 01/20/2025 Transportation Needs Answer Date Record ed Have you gone without health care because you didn t have a way to get there? Or worry about transportation for future doctor visits, excelsior picker medication, etc.? No 2024 Housing Stability [...] on file Legal Sex Male 6:04 AM SUPERVISOR HEADING Gender Identity Not on file Sexual Orientation Not on file documented as of this encounter Plan of Treatment Upcoming Encounters Date Type Department Care Team (Late st Contact Info) Description 03/22/2025 12:30 PM SUPERVISOR HEADING Office Visit [facility] Physical Med and Rehab [facility] [address] [place] [phone] William Cardozo MD [address] [facility] [address] [place] [phone] 03/23/2025 10:50 AM SUPERVISOR HEADING Appointment [facility] Laboratory Services [address] [facility] [address] [place] [address] 03/30/2025 7:50 AM SUPERVISOR HEADING Office Visit [facility] Cancer and Hematology [place] [address] [place] [address] Jignesh Geiger, MOUNIKA [address] [facility] [address] [place] [address] Scheduled Orders Name Type Priority Associated Diagnoses Orde r Schedule CBC WITH DIFFERENTIAL Lab Routine Low serum copper level Expected: 03/30/2025, Expires: 03/30/2026 COMPREHENSIVE METABOLIC PANEL Lab Routine Low serum copper level Expected: 03/30/2025, Expires: 03/30/2026 COPPER LEVEL Lab Routine Low serum copper level Expected: 03/30/2025, Expires: 03/30/2026 documented as of this encounter Visit Diagnoses Diagnosis Low serum copper level- Primary documented in this encounter Additional Health Concerns Assessment Noted Time PHQ-9 Depression Total Score: 2 01/10/20 24 3:01 PM CDT documented as of this encounter Care Teams Assistant Printer Floor Covering Relationship Specialty Start Date End Date Cc Jailyn, Physician Pc, MD PCP - General Family Practice 02/18/25 documented as of this encounter
--- OUTSIDE RECORDS SUMMARY | 2025-03-14 17:22 | XMS_ITS | Encounter Summary ---
Author Organization [facility] Address [address] [place] [address] Care Team Providers Care Gasket Winder Name Role Phone Cc Amb, Physician Pc MD Primary Care Provider Un available Encounter Details Date Type Department Care Team (Late st Contact Info) Description 02/09/2021 Lab Requisition [facility] Laboratory Services [address] [place] [phone] Lurdes Cabrera MD [address] [place] [address] Social History Tobacco Use Types [...] declined 06/14/2020 How often do you attend roman catholic or orthodox serv ices? Patient declined 06/14/2020 Do you belong to any clubs o r organizations such as roman catholic groups, unions, fraternal or athletic groups, or [...] on file Legal Sex Male 6:04 AM TERMITE TREATER Gender Identity Not on file Sexual Orientation [...] st Contact Info) Description 03/22/2025 12:30 PM TERMITE TREATER Office Visit [facility] Physical Med and Rehab [facility] [address] [place] [phone] William Cardozo MD [address] [place] [phone] 03/23/2025 10:50 AM TERMITE TREATER Appointment [facility] Cancer [facility] Laboratory Services [address] [place] [address] 03/30/2025 7:50 AM TERMITE TREATER Office Visit [facility] Cancer and Hematology [place] [address] [place] [address] Jignesh Geiger NP [address] [place] [address] documented as of this encounter Procedures Procedure Name Priority Date/Time Associated Diagnosis Comments DIFFERENTIAL, MANUAL Routine 02/09/2021 4:30 AM CDT CBC WITH DIFFERENTIAL Routine 02/09/2021 4:30 AM CDT PHOSPHORUS Routine 02/09/2021 4:30 AM CDT MAGNESIUM LEVEL Routine 02/09/2021 4:30 AM CDT COMPREHENSIVE METABOLIC PANEL Routine 02/09/2021 4:30 AM CDT documented in this encounter Results * (ABNORMAL) MANUAL DIFFERENTIAL (02/09/2021 4:30 AM CDT) SEGMENTED NEUTROPHILS 81(H) 36 - 66 % 02/09/2021 7:55 AM CDT [facility] [employer] [facility] LYMPHOCYTES RELATIVE 10(L) 24 - 44 % 02/09/2021 7:55 AM CDT [facility] [employer] [facility] MONOCYTES RELATIVE 2(L) 4 - 10 % 2020 7:55 AM CDT [facility] [employer] [facility] METAMYELOCYTES RELATIVE 4(H) 0 - 1 % 02/09/2021 7:55 AM CDT [facility] MYELOCYTES - REL (DIFF) 3(H) 0 - 1 % 02/09/2021 7:55 AM CDT [facility] NEUTROPHILS ABSOLUTE COUNT 9.40(H) 2.00 - 8.00 K/uL 02/09/2021 7:55 AM CDT [facility] LYMPHOCYTES ABSOLUTE 1.16(L) 1.20 - 4.00 K/uL 02/09/2021 7:55 AM CDT [facility] MONOCYTES ABSOLUTE 0.23 0.10 - 0.60 K/uL 02/09/2021 7:55 AM CDT [facility] TOTAL CELLS COUNTED IN DIFF 100 02/09/2021 7:55 AM CDT [facility] PLATELET EST. Adequate 02/09/2021 7:55 AM CDT [facility] POIKILOCYTES 1+ /hpf 02/09/2021 7:55 AM CDT [facility] Blood Collection / Unknown 02/09/2021 4:30 AM CDT 02/09/2021 7:03 AM CDT us Lurdes Cabrera MD HEMATOLOGY ORDER AILYN COM Final Result [facility] CLIA # [id number] [address] [place] [address] * (ABNORMAL) PHOSPHORUS (02/09/2021 4:30 AM CDT) PHOSPHORUS 5.8(H) 2.5 - 4.5 mg/dL 02/09/2021 7:26 AM CDT [facility] Blood Collection / Unknown 02/09/2021 4:30 AM CDT 02/09/2021 7:06 AM CDT us Lurdes Cabrera MD CHEMISTRY ORDERA BLES Final Result Performing Organization Address [facility] Co de Phone Number [facility] CLIA # [id number] [address] [address] * MAGNESIUM LEVEL (02/09/2021 4:30 AM CDT) Pathologist [facility] MAGNESIUM 2.5 1.6 - 2.6 mg/dL 02/09/2021 7:26 AM CDT [facility] Blood Collection / Unknown 02/09/2021 4:30 AM CDT 02/09/2021 7:06 AM CDT Lurdes Cabrera MD CHEMISTRY ORDERA BLES Final Result Performing Organization Address [facility] de Phone Number [facility] CLIA # [id number] [facility] [address] * (ABNORMAL) CBC WITH DIFFERENTIAL (02/09/2021 4:30 AM CDT) Pathologist [facility] WBC 11.6(H) 4.5 - 11.0 K/uL 02/09/2021 7:55 AM CDT [facility] RBC 3.40(L) 4.60 - 6.20 M/uL 02/09/2021 7:55 AM CDT [facility] HEMOGLOBIN 9.1(L) 14.0 - 18.0 g/dL 02/09/2021 7:55 AM CDT [facility] HEMATOCRIT 29.7(L) 41.0 - 53.0 % 02/09/2021 7:55 AM CDT [facility] MCV 87.4 84.0 - 103.0 fL 02/09/2021 7:55 AM CDT [facility] MCH 26.8(L) 27.0 - 34.0 pg 02/09/2021 7:55 AM CDT [facility] MCHC 30.6 30.0 - 35.0 g/dL 02/09/2021 7:55 AM CDT [facility] RDW 15.5(H) 11.0 - 14.5 % 02/09/2021 7:55 AM CDT [facility] RDW-STDEV 48.2 37.0 - 54.0 fL 02/09/2021 7:55 AM CDT [facility] PLATELETS 435 140 - 440 K/uL 02/09/2021 7:55 AM CDT [facility] MPV 9.5 8.9 - 12.8 fL 02/09/2021 7:55 AM CDT [facility] Blood Collection / Unknown 02/09/2021 4:30 AM CDT 02/09/2021 7:03 AM CDT us Lurdes Cabrera MD HEMATOLOGY ORDER AILYN Final Result [facility] CLIA # [id number] [facility] [address] * (ABNORMAL) COMPREHENSIVE METABOLIC PANEL (02/09/2021 4:30 AM CDT) SODIUM 134(L) 136 - 145 mmol/L 02/09/2021 7:26 AM CDT [facility] POTASSIUM 3.8 3.5 - 5.1 mmol/L 02/09/2021 7:26 AM CDT [facility] CHLORIDE 95(L) 98 - 107 mmol/L 02/09/2021 7:26 AM CDT [facility] CO2 27 22 - 29 mmol/L 02/09/2021 7:26 AM CDT [facility] CALCIUM 9.0 8.6 - 10.0 mg/dL 02/09/2021 7:26 AM CDT [facility] BUN 42(H) 6 - 20 mg/dL 02/09/2021 7:[facility] 4.36(H) 0.67 - 1.17 mg/dL 02/09/2021 7:26 AM [facility] GLUCOSE 64(L) 74 - 99 mg/dL 02/09/2021 7:26 AM [facility] TOTAL PROTEIN 7.0 6.4 - 8.3 g/dL 02/09/2021 7:26 AM [facility] ALBUMIN 2.6(L) 3.5 - 5.2 g/dL 02/09/2021 7:26 AM [facility] BILIRUBIN TOTAL 0.2 0.2 - 1.0 mg/dL 02/09/2021 7:26 AM [facility] ALKALINE PHOSPHATASE 305(H) 40 - 129 U/L 02/09/2021 7:26 AM [facility] AST 34 10 - 50 U/L 02/09/2021 7:26 AM [facility] ALT 54(H) <=50 U/L 02/09/2021 7:26 AM [facility] GFR 16 mL/min/1. 73 sq meter 02/09/2021 7:26 AM [facility] Comment: eGFR has not been [...] please refer to the GFR result. GFR, 19 mL/min/1. 73 sq meter 02/09/2021 7:26 AM [facility] ANION GAP 12 9 - 20 mmol/L 02/09/2021 7:26 AM [facility] Blood Collection / Unknown 02/09/2021 4:30 AM T 02/09/2021 7:06 AM CDT Lurdes Cabrera MD CHEMISTRY LIZET NICHOLS Final Result [facility] # [id number] [address] [facility] [place] [address] documented in this encounter Visit Diagnoses Not on filedocumented in this encounter Additional Health Concerns Infection Onset Date Last Indicated Resolved Time R/O COVID-19 01/30/2022 01/30/2022 01/30/2022 6:48 PM CDT C Diff 01/30/2022 02/05/2022 04/06/2022 1:16 AM TERMITE TREATER R/O GI Pathogen 05/07/2023 05/07/2023 05/09/2023 3 :52 PM TERMITE TREATER R/O Respiratory 11/15/2024 11/15/2024 11/15/2024 1 1:33 [...] documented as of this encounter Care Teams Gasket Winder Relationship Specialty Start Date End Date Cc Amb, Physician Pc, MD PCP - General Family Practice 02/18/25 documented as of this encounter
--- OUTSIDE RECORDS SUMMARY | 2025-03-14 17:22 | XMS_ITS | Encounter Summary ---
Author Organization [facility] Address [address] [place] [address] Care Team Providers Care Jigger Operator Name Role Phone Cc Amb, Physician Pc MD Primary Care Provider Un available Encounter Details Date Type Department Care Team (Late st Contact Info) Description 02/04/2021 Lab Requisition [facility] Laboratory Services [address] [place] [phone] Lurdes Cabrera MD [address] [place] [address] Social History Tobacco Use Types [...] declined 06/14/2020 How often do you attend synagogue or methodist serv ices? Patient declined 06/14/2020 Do you belong to any clubs o r organizations such as synagogue groups, unions, fraternal or athletic groups, or [...] on file Legal Sex Male 6:04 AM REAL ESTATE BRANCH MANAGER Gender Identity Not on file Sexual [...] st Contact Info) Description 03/22/2025 12:30 PM REAL ESTATE BRANCH MANAGER Office [facility] Physical Med and Rehab [facility] [address] [place] [address] William Cardozo MD [address] [place] [phone] 03/23/2025 10:50 AM REAL ESTATE BRANCH MANAGER Appointment [facility] Laboratory Services [address] [place] [address] 03/30/2025 7:50 AM REAL ESTATE BRANCH MANAGER Office Visit [facility] Cancer and Hematology [place] [address] [place] [address] Jignesh Geiger NP [address] [place] [address] documented as of this encounter Procedures Procedure Name Priority Date/Time Associated Diagnosis Comments DIFFERENTIAL, MANUAL Routine 02/04/2021 5:20 AM CDT CBC WITH DIFFERENTIAL Routine 02/04/2021 5:20 AM CDT PHOSPHORUS Routine 02/04/2021 5:20 AM CDT MAGNESIUM LEVEL Routine 02/04/2021 5:20 AM CDT COMPREHENSIVE METABOLIC PANEL Routine 02/04/2021 5:20 AM CDT documented in this encounter Results * (ABNORMAL) MANUAL DIFFERENTIAL (02/04/2021 5:20 AM CDT) SEGMENTED NEUTROPHILS 85(H) 36 - 66 % 02/04/2021 7:38 AM CDT [facility] LYMPHOCYTES RELATIVE 6(L) 24 - 44 % 02/04/2021 7:38 AM CDT [facility] MONOCYTES RELATIVE 5 4 - 10 % 2020 7:38 AM CDT [facility] METAMYELOCYTES RELATIVE 2(H) 0 - 1 % 02/04/2021 7:38 AM CDT [facility] MYELOCYTES - REL (DIFF) 2(H) 0 - 1 % 02/04/2021 7:38 AM CDT [facility] NEUTROPHILS ABSOLUTE COUNT 8.42(H) 2.00 - 8.00 K/uL 02/04/2021 7:38 AM CDT [facility] LYMPHOCYTES ABSOLUTE 0.59(L) 1.20 - 4.00 K/uL 02/04/2021 7:38 AM CDT [facility] MONOCYTES ABSOLUTE 0.50 0.10 - 0.60 K/uL 02/04/2021 7:38 AM CDT [facility] TOTAL CELLS COUNTED IN DIFF 100 02/04/2021 7:38 AM CDT [facility] PLATELET EST. Adequate 02/04/2021 7:38 AM CDT [facility] RBC MORPHOLOGY Normal 02/04/2021 7:38 AM CDT [facility] Blood Collection / Unknown 02/04/2021 5:20 AM CDT 02/04/2021 6:47 AM CDT us Lurdes Cabrera MD HEMATOLOGY ORDER AILYN COM Final Result Performing Organization Address [facility] [[email or web address]] Co de Phone Number [facility] CLIA # [id number] [address] [place] [address] * (ABNORMAL) MAGNESIUM LEVEL (02/04/2021 5:20 AM CDT) MAGNESIUM 2.7(H) 1.6 - 2.6 mg/dL 02/04/2021 7:40 AM CDT [facility] Blood Collection / Unknown 02/04/2021 5:20 AM CDT 02/04/2021 7:18 AM CDT us Lurdes Cabrera MD CHEMISTRY ORDERA BLES Final Result Performing Organization Address City/State/[facility] de Phone Number [facility] CLIA # [id number] [address] [address] * (ABNORMAL) PHOSPHORUS (02/04/2021 5:20 AM CDT) PHOSPHORUS 10.6(H) 2.5 - 4.5 mg/dL 02/04/2021 7:40 AM CDT [facility] Blood Collection / Unknown 02/04/2021 5:20 AM CDT 02/04/2021 7:18 AM CDT us Lurdes Cabrera MD CHEMISTRY ORDERA BLES Final Result Performing Organization Address [facility] de Phone Number [facility] CLIA # [id number] [address] [place] [address] * (ABNORMAL) COMPREHENSIVE METABOLIC PANEL (02/04/2021 5:20 AM CDT) Pathologist [facility] SODIUM 137 136 - 145 mmol/L 02/04/2021 7:42 AM CDT [facility] POTASSIUM 6.1(HH) 3.5 - 5.1 mmol/L 02/04/2021 7:42 AM CDT [facility] Comment:Critical value. Resu lts called to Nidia Juares RN by LICHA COX at 7:40 AM on 02/04/2021 and read back verified. CHLORIDE 96(L) 98 - 107 mmol/L 02/04/2021 7:42 AM CDT [facility] CO2 20(L) 22 - 29 mmol/L 02/04/2021 7:42 AM CDT [facility] CALCIUM 9.8 8.6 - 10.0 mg/dL 02/04/2021 7:42 AM CDT [facility] BUN 71(H) 6 - 20 mg/dL 02/04/2021 7:42 AM [facility] CREATININE 6.61(H) 0.67 - 1.17 mg/dL 02/04/2021 7:42 AM [facility] GLUCOSE 340(H) 74 - 99 mg/dL 02/04/2021 7:42 AM [facility] TOTAL PROTEIN 7.1 6.4 - 8.3 g/dL 02/04/2021 7:42 AM [facility] ALBUMIN 2.4(L) 3.5 - 5.2 g/dL 02/04/2021 7:42 AM [facility] BILIRUBIN TOTAL 0.2 0.2 - 1.0 mg/dL 02/04/2021 7:42 AM [facility] ALKALINE PHOSPHATASE 475(H) 40 - 129 U/L 02/04/2021 7:42 AM [facility] AST 63(H) 10 - 50 U/L 02/04/2021 7:42 AM [facility] ALT 70(H) <=50 U/L 02/04/2021 7:42 AM [facility] GFR 10 mL/min/1. 73 sq meter 02/04/2021 7:42 AM [facility] Comment: eGFR has not [...] please refer to the GFR result. GFR, 12 mL/min/1. 73 sq meter 02/04/2021 7:42 AM [facility] ANION GAP 21(H) 9 - 20 mmol/L 02/04/2021 7:42 AM [facility] Blood Collection / Unknown 02/04/2021 5:20 AM CDT 02/04/2021 7:18 AM CDT Lurdes Cabrera MD CHEMISTRY ORDERA BLES Final Result [facility] BAY # [id number] [address] [address] [place] [address] * (ABNORMAL) CBC WITH DIFFERENTIAL (02/04/2021 5:20 AM CDT) [facility] WBC 9.9 4.5 - 11.0 K/uL 02/04/2021 7:38 AM CDT [facility] RBC 2.82(L) 4.60 - 6.20 M/uL 02/04/2021 7:38 AM CDT [facility] HEMOGLOBIN 7.4(L) 14.0 - 18.0 g/dL 02/04/2021 7:38 AM CDT [facility] HEMATOCRIT 25.2(L) 41.0 - 53.0 % 02/04/2021 7:38 AM CDT [facility] MCV 89.4 84.0 - 103.0 fL 02/04/2021 7:38 AM CDT [facility] MCH 26.2(L) 27.0 - 34.0 pg 02/04/2021 7:38 AM CDT [facility] MCHC 29.4(L) 30.0 - 35.0 g/dL 02/04/2021 7:38 AM CDT [facility] RDW 14.8(H) 11.0 - 14.5 % 02/04/2021 7:38 AM CDT [facility] RDW-STDEV 46.9 37.0 - 54.0 fL 02/04/2021 7:38 AM CDT [facility] PLATELETS 434 140 - 440 K/uL 02/04/2021 7:38 AM CDT [facility] MPV 10.0 8.9 - 12.8 fL 02/04/2021 7:38 AM CDT [facility] Blood Collection / Unknown 02/04/2021 5:20 AM CDT 02/04/2021 6:47 AM CDT Lurdes Cabrera MD HEMATOLOGY ORDER AILYN Final Result [facility] CLIA # [id number] [address] [address] [place] [address] documented in this encounter Visit Diagnoses Not on filedocumented in this encounter Additional Health Concerns Infection Onset Date Last Indicated Resolved Time COVID-19 01/18/2021 01/18/2021 02/07/2021 1:16 AM CDT R/O COVID-19 01/30/2022 01/30/2022 01/30/2022 6:48 PM CDT C Diff 01/30/2022 02/05/2022 04/06/2022 1:16 AM REAL ESTATE BRANCH MANAGER R/O GI Pathogen 05/07/2023 05/07/2023 05/09/2023 3 :52 PM REAL ESTATE BRANCH MANAGER R/O Respiratory 11/15/2024 11/15/2024 11/15/2024 1 [...] documented as of this encounter Care Teams Jigger Operator Relationship Specialty Start Date End Date Cc Jailyn, Physician Pc, MD PCP - General Family Practice 02/18/25 documented as of this encounter
--- OUTSIDE RECORDS SUMMARY | 2025-03-14 17:22 | XMS_ITS | Encounter Summary ---
Author Organization [facility] Address [address] [place] [address] Care Team Providers Care Merchant Mill Utility Worker Name Role Phone Cc Amb, Physician Pc MD Primary Care Provider Un available Encounter Details Date Type Department Care Team (Late st Contact Info) Description 02/03/2021 Lab Requisition [facility] Laboratory Services [address] [place] [address] Lurdes Cabrera MD [address] [place] [address] Social History Tobacco Use Types [...] declined 06/14/2020 How often do you attend jew or mormonism serv ices? Patient declined 06/14/2020 Do you belong to any clubs o r organizations such as jew groups, unions, fraternal or athletic groups, or [...] on file Legal Sex Male 6:04 AM STATION CHIEF Gender Identity Not on file Sexual Orientation [...] st Contact Info) Description 03/22/2025 12:30 PM STATION CHIEF Office Visit [facility] Physical Med and Rehab [facility] [address] [place] [address] William Cardozo MD [address] [place] [address] 03/23/2025 10:50 AM STATION CHIEF Appointment [facility] Laboratory Services [address] [place] [address] 03/30/2025 7:50 AM STATION CHIEF Office Visit [facility] Cancer and Hematology [place] [address] [place] [address] Jignesh Geiger NP [address] [place] [address] documented as of this encounter Procedures Procedure Name Priority Date/Time Associated Diagnosis Comments SPUTUM CULTURE WITH GRAM STAIN Routine 02/03/2021 10:45 AM CDT documented in this encounter Results * SPUTUM CULTURE WITH GRAM STAIN (02/03/2021 10:45 AM CDT) CULTURE No pathogens isolated. Normal respiratory rob present. 02/05/2021 7:48 AM CDT [facility] 2Peer (Qlipso) [facility] GRAM STAIN Smear contains </=10 squamous epithelial cells per low power field 02/05/2021 7:[address] [facility] GRAM STAIN >25 PMN WBC/LPF 7:[address] [facility] GRAM STAIN No organisms observed 02/05/2021 7:[address] [facility] Sputum Collection / Unknown 02/03/2021 10:45 AM CDT 02/03/2021 12:29 PM CDT Lurdes Cabrera MD MICROBIOLOGY - G ENERAL ORDERABLES Final Result [facility] LABORATORY [facility] CLIA # [id number] [address] [facility] [place] [address] documented in this encounter Visit Diagnoses Not on filedocumented in this encounter Additional Health Concerns Infection Onset Date Last Indicated Resolved Time COVID-19 01/18/2021 01/18/2021 02/07/2021 1:16 AM CDT R/O COVID-19 01/30/2022 01/30/2022 01/30/2022 6:48 PM CDT C Diff 01/30/2022 02/05/2022 04/06/2022 1:16 AM STATION CHIEF R/O GI Pathogen 05/07/2023 05/07/2023 05/09/2023 3 :52 PM STATION CHIEF R/O Respiratory 11/15/2024 11/15/2024 11/15/2024 1 1:33 [...] documented as of this encounter Care Teams Merchant Mill Utility Worker Relationship Specialty Start Date End Date Cc Jailyn, Physician Pc, MD PCP - General Family Practice 02/18/25 documented as of this encounter
--- OUTSIDE RECORDS SUMMARY | 2025-03-14 17:22 | XMS_ITS | Encounter Summary ---
Author Organization [facility] Address [address] [place] [address] Care Team Providers Care Resident Care Technician Name Role Phone Cc Amb, Physician Pc MD Primary Care Provider Un available Encounter Details Date Type Department Care Team (Late st Contact Info) Description 03/11/2025 Abstract [facility] Infectious Disease[facility] [address] [facility] [address] [place] [address] Kelle Mason, [facility] [address] [facility] [address] [place] [address] Social History Tobacco Use Types Packs/Day Years [...] How often do you attend chur or buddhism services? More than 4 times per year 05/03/2021 Do you belong to any clubs o r organizations such as taoism groups, unions, fraternal or athletic groups, or [...] any time in the past 12 m [facility], were you homeless or living in a senior living (including now)? No 05/03/2021 Food Insecurity Answer Date Recorded Do you find you are eating l ess than you should because you can t pay for food? No 01/20/2025 Transportation Needs Answer Date Record ed Have you gone without health care because you didn t have a way to get there? Or worry about transportation for future doctor visits, pick and shovel worker medication, etc.? No 2024 Housing Stability Answer [...] on file Legal Sex Male 6:04 AM PIANO CASE AND BENCH ASSEMBLER Gender Identity Not on file Sexual Orientation Not on file documented as of this encounter Plan of Treatment Upcoming Encounters Date Type Department Care Team (Late st Contact Info) Description 03/22/2025 12:30 PM PIANO CASE AND BENCH ASSEMBLER Office Visit [facility] Physical Med and Rehab [facility] [address] [facility] [address] [place] [address] William Cardozo MD [address] [place] [address] 03/23/2025 10:50 AM PIANO CASE AND BENCH ASSEMBLER Appointment [facility] [place] Laboratory Services [address] [place] [phone] 03/30/2025 7:50 AM PIANO CASE AND BENCH ASSEMBLER Office Visit [facility] Cancer and Hematology [place] [address] [facility] [address] [place] [phone] Jignesh Geiger NP [address] [facility] [address] [place] [address] documented as of this encounter Procedures Procedure Name Priority Date/Time Associated Diagnosis Comments HEMOGLOBIN A1C Routine 02/15/2025 LIPID PANEL Routine 02/15/2025 documented in this encounter Results * LIPID PANEL (02/15/2025) ABSTRACTED CHOLESTEROL 97 ABSTRACTED TRIGLYCERIDE 86 ABSTRACTED HDL 42 ABSTRACTED LDL CALCULATED 38 Blood 02/15/2025 us Abstract Provider CHEMISTRY ORDERABLES Final Res ult * HEMOGLOBIN A1C (02/15/2025) ABSTRACTED HGB A1C 4.1 % Blood 02/15/2025 us Abstract Provider CHEMISTRY ORDERABLES Final Res ult documented in this encounter Visit Diagnoses Not on filedocumented in this encounter Additional Health Concerns Assessment Noted Time PHQ-9 Depression Total Score: 2 01/10/20 24 3:01 PM CDT documented as of this encounter Care Teams Resident Care Technician Relationship Specialty Start Date End Date Cc Jailyn, Physician Pc, MD PCP - General Family Practice 02/18/25 documented as of this encounter
--- OUTSIDE RECORDS SUMMARY | 2025-03-14 17:22 | XMS_ITS | Encounter Summary ---
Author Organization [facility] Address [address] [place] [address] Care Team Providers Care Bank Representative Name Role Phone Cc Amb, Physician Pc MD Primary Care Provider Un available Encounter Details Date Type Department Care Team (Late st Contact Info) Description 02/02/2021 Lab Requisition [facility] Laboratory Services [address] [place] [phone] Lurdes Cabrera MD [address] [place] [address] Social History Tobacco Use Types [...] declined 06/14/2020 How often do you attend jainism or tenriism serv ices? Patient declined 06/14/2020 Do you belong to any clubs o r organizations such as jainism groups, unions, fraternal or athletic groups, or [...] on file Legal Sex Male 6:04 AM KEEPER HEAD Gender Identity Not on file Sexual Orientation [...] st Contact Info) Description 03/22/2025 12:30 PM KEEPER HEAD Office Visit [facility] Physical Med and Rehab [facility] [address] [place] [address] William Cardozo MD [address] [place] [address] 03/23/2025 10:50 AM KEEPER HEAD Appointment [facility] Laboratory Services [address] [place] [address] 03/30/2025 7:50 AM KEEPER HEAD Office Visit [facility] Cancer and Hematology [place] [address] [place] [address] Jignesh Geiger NP [address] [place] [address] documented as of this encounter Procedures Procedure Name Priority Date/Time Associated Diagnosis Comments EXTRA TUBE (SST/GOLD) Routine 02/02/2021 1:30 PM CDT HEPATITIS B SURFACE AB, QUAL Routine 02/02/2021 1:30 PM CDT HEPATITIS B SURFACE ANTIGEN Routine 02/02/2021 1:30 PM CDT HEPATITIS B CORE IGM Routine 02/02/2021 1:30 PM CDT documented in this encounter Results * EXTRA TUBE (SST/GOLD) (02/02/2021 1:30 PM CDT) Blood Collection / Unknown 02/02/2021 1:30 PM CDT 02/02/2021 4:01 PM CDT Lurdes Cabrera MD CHEMISTRY ORDERA BLES Final Result [facility]ORY [facility] CLIA # [id number] [address] [address] [place], [place] [id number] * HEPATITIS B CORE IGM (02/02/2021 1:30 PM CDT) HEPATITIS B CORE IGM Non-reacti ve Non-react ford 02/02/2021 4:51 PM CDT [facility] Blood Collection / Unknown 02/02/2021 1:30 PM CDT 02/02/2021 4:01 PM CDT Lurdes Cabrera MD CHEMISTRY ORDERA BLES Final Result Performing Organization Address [facility]/ZIP Co de Phone Number [facility] CLIA # [id number] [address] [facility] [place] [address] * HEPATITIS B SURFACE ANTIGEN (02/02/2021 1:30 PM CDT) HEPATITIS B SURFACE AG NON-REACTI VE Non-react ford 02/02/2021 4:51 PM CDT [facility] Blood Collection / Unknown 02/02/2021 1:30 PM CDT 02/02/2021 4:01 PM CDT Lurdes Cabrera MD CHEMISTRY ORDERA BLES Final Result Performing Organization Address [facility] Co de Phone Number [facility] CLIA # [id number] [address] [address] * (ABNORMAL) HEPATITIS B SURFACE AB, QUAL (02/02/2021 1:30 PM CDT) HEPATITIS B SURFACE AB, QUAL Reactive( A) Non-react ford 02/02/2021 4:51 PM CDT [facility] Comment:Patient is considere d to be immune to infection with HBV. Blood Collection / Unknown 02/02/2021 1:30 PM CDT 02/02/2021 4:01 PM CDT Lurdes Cabrera MD CHEMISTRY ADILENEA BLES Final Result [facility] B[facility] # [id number] [address] [facility] [place] [address] documented in this encounter Visit Diagnoses Not on filedocumented in this encounter Additional Health Concerns Infection Onset Date Last Indicated Resolved Time COVID-19 01/18/2021 01/18/2021 02/07/2021 1:16 AM CDT R/O COVID-19 01/30/2022 01/30/2022 01/30/2022 6:48 PM CDT C Diff 01/30/2022 02/05/2022 04/06/2022 1:16 AM KEEPER HEAD R/O GI Pathogen 05/07/2023 05/07/2023 05/09/2023 3 :52 PM KEEPER HEAD R/O Respiratory 11/15/2024 11/15/2024 11/15/2024 1 1:33 [...] documented as of this encounter Care Teams Bank Representative Relationship Specialty Start Date End Date Cc Jailyn, Physician Pc, MD PCP - General Family Practice 02/18/25 documented as of this encounter
--- OUTSIDE RECORDS SUMMARY | 2025-03-14 17:22 | XMS_ITS | Encounter Summary ---
Author Organization [facility] Address [address] [place] [address] Care Team Providers Care Shear Scrapman Name Role Phone Cc Amb, Physician Pc MD Primary Care Provider Un available Encounter Details Date Type Department Care Team (Late st Contact Info) Description 02/04/2021 Lab Requisition [facility] Laboratory Services [address] [place] [phone] Lurdes Cabrera MD [address] [place] [address] Social History Tobacco Use Types [...] declined 06/14/2020 How often do you attend restorationist or gnosticism serv ices? Patient declined 06/14/2020 Do you belong to any clubs o r organizations such as restorationist groups, unions, fraternal or athletic groups, or [...] on file Legal Sex Male 6:04 AM BIAS CUTTER HELPER Gender Identity Not on file Sexual Orientation [...] st Contact Info) Description 03/22/2025 12:30 PM BIAS CUTTER HELPER Office Visit [facility] Physical Med and Rehab [facility] [address] [place] [address] William Cardozo MD [address] [place] [address] 03/23/2025 10:50 AM BIAS CUTTER HELPER Appointment [facility] Laboratory Services [address] [place] [address] 03/30/2025 7:50 AM BIAS CUTTER HELPER Office Visit [facility] Cancer and Hematology [place] [address] [place] [address] Jignesh Geiger NP [address] [place] [address] documented as of this encounter Procedures Procedure Name Priority Date/Time Associated Diagnosis Comments LACTIC ACID Stat 02/04/2021 6:30 AM CDT documented in this encounter Results * LACTIC ACID (02/04/2021 6:30 AM CDT) LACTIC ACID 1.0 <=2.0 mmol/L 02/04/2021 6:57 AM CDT [facility] Blood Collection / Unknown 02/04/2021 6:30 AM CDT 02/04/2021 6:47 AM CDT us Lurdes Cabrera MD CHEMISTRY ORDERA BLES Final Result [facility] CLIA # [id number] [address] [address] [address] [place], [place] [id number] documented in this encounter Visit Diagnoses Not on filedocumented in this encounter Additional Health Concerns Infection Onset Date Last Indicated Resolved Time COVID-19 01/18/2021 01/18/2021 02/07/2021 1:16 AM CDT R/O COVID-19 01/30/2022 01/30/2022 01/30/2022 6:48 PM CDT C Diff 01/30/2022 02/05/2022 04/06/2022 1:16 AM BIAS CUTTER HELPER R/O GI Pathogen 05/07/2023 05/07/2023 05/09/2023 3 :52 PM BIAS CUTTER HELPER R/O Respiratory 11/15/2024 11/15/2024 11/15/2024 1 1:33 [...] documented as of this encounter Care Teams Shear Scrapman Relationship Specialty Start Date End Date Cc Jailyn, Physician Pc, MD PCP - General Family Practice 02/18/25 documented as of this encounter
--- OUTSIDE RECORDS SUMMARY | 2025-03-14 17:22 | XMS_ITS | Encounter Summary ---
Author Organization [facility] Address [address] [place] [address] Care Team Providers Care Medical Coding Specialist Name Role Phone Cc Amb, Physician Pc MD Primary Care Provider Un available Encounter Details Date Type Department Care Team (Late st Contact Info) Description 02/03/2021 Lab Requisition [facility] Laboratory Services [address] [place] [address] [place] [phone] Lurdes Cabrera MD [address] [place] [address] Social History Tobacco Use Types [...] declined 06/14/2020 How often do you attend gnosticist or baptism serv ices? Patient declined 06/14/2020 Do you belong to any clubs o r organizations such as gnosticist groups, unions, fraternal or athletic groups, or [...] on file Legal Sex Male 6:04 AM TRACTOR SWEEPER OPERATOR Gender Identity Not on file Sexual [...] st Contact Info) Description 03/22/2025 12:30 PM TRACTOR SWEEPER OPERATOR Office Visit [facility] Physical Med and Rehab [facility] [address] [place] [address] William Cardozo MD [address] [place] [address] 03/23/2025 10:50 AM TRACTOR SWEEPER OPERATOR Appointment [facility] Laboratory Services [address] [place] [address] 03/30/2025 7:50 AM TRACTOR SWEEPER OPERATOR Office Visit [facility] Cancer and Hematology [place] [address] [place] [address] Jignesh Geiger NP [address] [place] [address] documented as of this encounter Procedures Procedure Name Priority Date/Time Associated Diagnosis Comments LACTIC ACID Stat 02/03/2021 9:50 AM CDT BLOOD CULTURE Routine 02/03/2021 9:50 AM CDT BLOOD CULTURE Routine 02/03/2021 9:50 AM CDT documented in this encounter Results * BLOOD CULTURE (02/03/2021 9:50 AM CDT) BLOOD CULTURE No growth 02/09/2021 8:34 AM CDT [facility] Blood Collection / Unknown 02/03/2021 9:50 AM CDT 02/03/2021 10:32 AM CDT Lurdes Cabrera MD MICROBIOLOGY - G ENERAL ORDERABLES Final Result [facility] CLIA # [id number] [address] [address] [place], [place] [id number] * BLOOD CULTURE (02/03/2021 9:50 AM CDT) BLOOD CULTURE No growth 02/09/2021 8:34 AM CDT [facility] Blood Collection / Unknown 02/03/2021 9:50 AM CDT 02/03/2021 10:32 AM CDT us Lurdes Cabrera MD MICROBIOLOGY - G ENERAL ORDERABLES Final Result [facility] CLIA # [id number] [address] [place], [place] [id number] * LACTIC ACID (02/03/2021 9:50 AM CDT) LACTIC ACID 0.6 <=2.0 mmol/L 02/03/2021 10:50 AM CDT [facility] Blood Collection / Unknown 02/03/2021 9:50 AM CDT 02/03/2021 10:33 AM CDT us Lurdes Cabrera MD CHEMISTRY ORDERA BLES Final Result Performing Organization Address [facility]/ZIP Co de Phone Number [facility] CLIA # [id number] [address] [place] [address] documented in this encounter Visit Diagnoses Not on filedocumented in this encounter Additional Health Concerns Infection Onset Date Last Indicated Resolved Time COVID-19 01/18/2021 01/18/2021 02/07/2021 1:16 AM CDT R/O COVID-19 01/30/2022 01/30/2022 01/30/2022 6:48 PM CDT C Diff 01/30/2022 02/05/2022 04/06/2022 1:16 AM TRACTOR SWEEPER OPERATOR R/O GI Pathogen 05/07/2023 05/07/2023 05/09/2023 3 :52 PM TRACTOR SWEEPER OPERATOR R/O Respiratory 11/15/2024 11/15/2024 11/15/2024 1 [...] documented as of this encounter Care Teams Medical Coding Specialist Relationship Specialty Start Date End Date Sade Glaser, Physician Pc, PCP - General Family Practice 02/18/25 documented as of this encounter
--- OUTSIDE RECORDS SUMMARY | 2025-03-14 17:23 | XMS_ITS | Encounter Summary ---
Author Organization [facility] Address [address] [place] [address] Care Team Providers Care Tool Filer Name Role Phone Cc Amb, Physician Pc MD Primary Care Provider Un available Encounter Details Date Type Department Care Team (Late st Contact Info) Description 12/09/2024 Lab Requisition [facility] Laboratory Services [address] [place] [address] [place] [phone] [facility], External Provider [address] [place] [address] Social History Tobacco Use Types Packs/Day Years [...] often do you attend chur ch or orthodoxy services? More than 4 times per year 05/03/2021 Do you belong to any clubs o r organizations such as confucianism groups, unions, fraternal or athletic groups, or [...] were you homeless or living in a mcfp (including now)? No 05/03/2021 Feeling Safe Answer Date Recorded Are you in a relationship wi th someone who hurts you emotionally and/or physically? No 12/10/2024 Food Insecurity Answer Date Recorded Patient needs follow up regardin 08/12/2024 Transportation Needs Answer Date Record ed Patient needs follow up regardin 08/12/2024 Housing Stability Answer Date Recorded Social/Environmental Concerns No concerns Utility Needs Answer Date Recorded Patient needs follow up regardin 08/12/2024 Sex and Gender Information Value Date Recorded Sex Assigned at Not on file Legal Sex Male 6:04 AM SERVER SECURITY ADMINISTRATOR Gender Identity Not on file Sexual Orientation Not on file documented as of this encounter Plan of Treatment Upcoming Encounters Date Type Department Care Team (Late st Contact Info) Description 03/22/2025 12:30 PM SERVER SECURITY ADMINISTRATOR Office Visit [facility] Physical Med and Rehab [facility] [address] [place] [address] William Cardozo MD [address] [place] [address] 03/23/2025 10:50 AM SERVER SECURITY ADMINISTRATOR Appointment [facility] Miriam Iniguez Laboratory Services [address] [place] [address] 03/30/2025 7:50 AM SERVER SECURITY ADMINISTRATOR Office Visit [facility] Cancer and Hematology [place] [address] [place] [address] Jignesh Geiger NP [address] [place] [phone] documented as of this encounter Procedures Procedure Name Priority Date/Time Associated Diagnosis Comments AMMONIA LEVEL Stat 12/09/2024 3:30 AM CDT COMPREHENSIVE METABOLIC PANEL Stat 12/09/2024 3:30 AM CDT documented in this encounter Results * AMMONIA LEVEL (12/09/2024 3:30 AM CDT) AMMONIA 26.4 16.0 - 60.0 umol/L 12/09/2024 6:04 AM CDT [facility] Blood, venous Collection / Unknown 12/09/2024 3:30 AM CDT 12/09/2024 5:41 AM CDT us External Provider [facility] CHEMISTRY ORDERABLES Final Result [facility] CLIA # [id number] Counts include 234 beds at the [facility] [address] [place] [address] * (ABNORMAL) COMPREHENSIVE METABOLIC PANEL (12/09/2024 3:30 AM CDT) SODIUM 133(L) 136 - 145 mmol/L 12/09/2024 6:20 AM CDT [facility] POTASSIUM 4.1 3.5 - 5.1 mmol/L 12/09/2024 6:20 AM CDT [facility] CHLORIDE 99 98 - 107 mmol/L 12/09/2024 6:20 AM T [facility] CO2 21(L) 22 - 29 mmol/L 12/09/2024 6:20 AM T [facility] CALCIUM 8.3(L) 8.6 - 10.0 mg/dL 12/09/2024 6:20 AM T [facility] BUN 24(H) 6 - 20 mg/dL 12/09/2024 6:20 AM T [facility] CREATININE 4.42(H) 0.67 - 1.17 mg/dL 12/09/2024 6:20 AM T [facility] GLUCOSE 577(HH) 74 - 99 mg/dL 12/09/2024 6:20 AM T [facility] TOTAL PROTEIN 6.3(L) 6.4 - 8.3 g/dL 12/09/2024 6:20 AM T [facility] ALBUMIN 2.3(L) 3.5 - 5.2 g/dL 12/09/2024 6:20 AM CDT [facility] BILIRUBIN TOTAL 0.5 0.0 - 1.0 mg/dL 12/09/2024 6:20 AM T [facility] ALKALINE PHOSPHATASE 204(H) 40 - 129 U/L 12/09/2024 6:20 AM CDT [facility] AST 25 10 - 50 U/L 12/09/2024 6:20 AM CDT [facility] ALT <5 <=50 U/L 12/09/2024 6:20 AM CDT [facility] GFR 17(L) >=60 mL/min/1. 73 sq meter 12/09/2024 6:20 AM T [facility] Comment:eGFR calculated with 2020 CKD-EPI equation. Vegetarian diet, extremely high or low muscle mass, and may affect results. Cystatin C with Glomerular Filtration Rate is a suitable alternative for these patients. ANION GAP 13 9 - 20 mmol/L 12/09/2024 6:20 AM T [facility] Blood Collection / Unknown 12/09/2024 3:30 AM CDT 12/09/2024 5:41 AM CDT External Provider [facility] CHEMISTRY ORDERABLES Final Result Performing Organization Address City/State/[facility] Co de Phone Number [facility] CLIA # [id number] [address] [place] [address] documented in this encounter Visit Diagnoses Not on filedocumented in this encounter Additional Health Concerns Infection Onset Date Last Indicated Resolved Time R/O C. diff 12/10/2024 12/10/2024 12/10/2024 9:47 [...] documented as of this encounter Care Teams Tool Filer Relationship Specialty Start Date End Date Cc Amb, Physician Pc, MD PCP - General Family Practice 02/18/25 documented as of this encounter
--- OUTSIDE RECORDS SUMMARY | 2025-03-14 17:23 | XMS_ITS | Encounter Summary ---
Author Organization [facility] Address [address] [place] [address] Care Team Providers Care Dental Ceramist Assistant Name Role Phone Cc Amb, Physician Pc MD Primary Care Provider Un available Encounter Details Date Type Department Care Team (Latest Contact Info) Description 01/09/2025 Results Follow-Up [facility] Emergency Department [address] [place] [phone] Thi Marion RN BLOOD CULTURE, BLOOD CULTURE Social History Tobacco Use Types Packs/Day Years [...] How often do you attend chur or zoroastrian services? More than 4 times per year 05/03/2021 Do you belong to any clubs o r organizations such as scientologist groups, unions, fraternal or athletic groups, or [...] any time in the past 12 m [facility], were you homeless or living in a skilled nursing (including now)? No 05/03/2021 Food Insecurity Answer Date Recorded Do you find you are eating l ess than you should because you can t pay for food? No 01/20/2025 Transportation Needs Answer Date Record ed Have you gone without health care because you didn t have a way to get there? Or worry about transportation for future doctor visits, garbage pick up man medication, etc.? No 2024 Housing Stability Answer [...] on file Legal Sex Male 6:04 AM ULTRASOUND SPEC Gender Identity Not on file Sexual Orientation Not on file documented as of this encounter Miscellaneous Notes * Result Encounter Note - Thi Marion RN - 01/10/2025 7:30 AM CDT BLOOD CULTURE X 2 Preliminary Result No growth at 48 hrs, will await final. * Result Encounter Note - Thi Marion RN - 01/09/2025 7:39 AM CDT BLOOD CULTURE X 2 Preliminary Result No growth at 24 hrs, will await final. documented in this encounter Plan of Treatment Upcoming Encounters Date Type Department Care Team (Late st Contact Info) Description 03/22/2025 12:30 PM ULTRASOUND SPEC Office Visit [facility] Physical Med and Rehab [facility] [address] [place] [address] William Cardozo MD [address] [facility] [address] [place] [address] 03/23/2025 10:50 AM ULTRASOUND SPEC Appointment [facility] Miriam Iniguez Laboratory Services [address] [place] [address] 03/30/2025 7:50 AM ULTRASOUND SPEC Office Visit [facility] Cancer and Hematology [place] [address] [place] [address] Jignesh Geiger, MOUNIKA [address] [place] [address] documented as of this encounter Visit Diagnoses [...] documented as of this encounter Care Teams Dental Ceramist Assistant Relationship Specialty Start Date End Date Cc Jailyn, Physician Pc, MD PCP - General Family Practice 02/18/25 documented as of this encounter
--- OUTSIDE RECORDS SUMMARY | 2025-03-14 17:23 | XMS_ITS | Encounter Summary ---
Author Organization [facility] Address [address] [place] [address] Care Team Providers Care Rn Private Duty Name Role Phone Cc Amb, Physician Pc MD Primary Care Provider Un available Encounter Details Date Type Department Care Team (Late st Contact Info) Description 11/27/2024 Lab Requisition [facility] Laboratory Services [address] [place] [address] [place] [phone] Hector Coronado MD [address] [place] [address] [address] [place] [address] Social History Tobacco Use Types Packs/Day Years [...] often do you attend chur ch or mormon services? More than 4 times per year 05/03/2021 Do you belong to any clubs o r organizations such as yarsanism groups, unions, fraternal or athletic groups, or [...] any time in the past 12 m [facility], were you homeless or living in a longterm (including now)? No 05/03/2021 Feeling Safe Answer Date Recorded Are you in a relationship wi th someone who hurts you emotionally and/or physically? No 11/15/2024 Food Insecurity Answer Date Recorded Patient needs follow up regardin 08/12/2024 Transportation Needs Answer Date Record ed Patient needs follow up regardin 08/12/2024 Housing Stability Answer Date Recorded Social/Environmental Concerns No concerns Utility Needs Answer Date Recorded Patient needs follow up regardin 08/12/2024 Sex and Gender Information Value Date Recorded Sex Assigned at Not on file Legal Sex Male 6:04 AM GAMMA FACILITIES OPERATOR Gender Identity Not on file Sexual Orientation Not on file documented as of this encounter Plan of Treatment Upcoming Encounters Date Type Department Care Team (Late st Contact Info) Description 03/22/2025 12:30 PM GAMMA FACILITIES OPERATOR Office Visit [facility] Physical Med and Rehab [facility] [address] [place] [address] William Cardozo MD [address] [place] [address] 03/23/2025 10:50 AM GAMMA FACILITIES OPERATOR Appointment [facility] Miriam Grijalvailly Laboratory Services [address] [place] [address] 03/30/2025 7:50 AM GAMMA FACILITIES OPERATOR Office Visit [facility] Cancer and Hematology [place] [address] [facility] [address] [place] [address] Jignesh Geiger, MOUNIKA [address] [place] [address] documented as of this encounter Procedures Procedure Name Priority Date/Time Associated Diagnosis Comments EXTRA TUBE (SST/GOLD) Routine 11/27/2024 3:34 AM CDT DIFFERENTIAL, MANUAL Routine 11/27/2024 3:34 AM CDT IRON, TIBC, AND PERCENT SATURATION Routine 11/27/2024 3:34 AM CDT CBC WITH DIFFERENTIAL Routine 11/27/2024 3:34 AM CDT FERRITIN Routine 11/27/2024 3:34 AM CDT COMPREHENSIVE METABOLIC PANEL Routine 11/27/2024 3:34 AM CDT documented in this encounter Results * MANUAL DIFFERENTIAL (11/27/2024 3:34 AM CDT) [facility] PLATELET EST. Adequate 11/27/2024 6:22 AM CDT [facility] ANISOCYTOSIS 1+ /hpf 11/27/2024 6:22 AM CDT [facility] POIKILOCYTES 1+ /hpf 11/27/2024 6:22 AM CDT [facility] MACROCYTES 1+ /hpf 11/27/2024 6:22 AM CDT [facility] Blood Collection / Unknown 11/27/2024 3:34 AM CDT 11/27/2024 5:50 AM CDT us Hector Coronado MD HEMATOLOGY ORDERABLES COM Fi nal Result Performing Organization Address City/[facility]/ZIP Co de Phone Number [facility] CLIA # [id number] [address] [place] [address] * EXTRA TUBE (SST/GOLD) (11/27/2024 3:34 AM CDT) Blood Collection / Unknown 11/27/2024 3:34 AM CDT 11/27/2024 5:52 AM CDT us Hector Coronado MD CHEMISTRY ORDERABLES Final R esult Performing Organization Address City/[facility]/ZIP Co de Phone Number [facility] CLIA # [id number] [address] [place] [address] * IRON, TIBC, AND PERCENT SATURATION (11/27/2024 3:34 AM CDT) [facility] IRON 93 59 - 158 ug/dL 11/27/2024 8:42 AM CDT [facility] TIBC 11/27/2024 8:42 AM CDT [facility] Comment:. IRON % SATURATION 11/27/2024 8:42 AM CDT [facility] Comment:. Blood Collection / Unknown 11/27/2024 3:34 AM CDT 11/27/2024 5:50 AM CDT Narrative [facility] - 11/27/2024 8:42 AM CDT Iron % Saturation can not be calculated with TIBC values of less than 36 ug/dL. Iron % Saturation can not be calculated with TIBC values of less than 36 ug/dL. us Hector Coronado MD CHEMISTRY ORDERABLES Final R [facility] Performing Organization Address [facility] Co de Phone Number [facility] CLIA # [id number] [address] [place] [address] * (ABNORMAL) FERRITIN (11/27/2024 3:34 AM CDT) Pathologist [facility] FERRITIN 6,006.0(H) 30.0 - 400.0 ng/mL 11/27/2024 8:13 AM CDT [facility] Blood Collection / Unknown 11/27/2024 3:34 AM CDT 11/27/2024 5:50 AM CDT us Hector Coronado MD CHEMISTRY ORDERABLES Final R esult [facility] CLIA # [id number] [address] [place] [address] * (ABNORMAL) CBC WITH DIFFERENTIAL (11/27/2024 3:34 AM CDT) WBC 8.8 4.5 - 11.0 K/uL 11/27/2024 6:22 AM CDT [facility] RBC 2.68(L) 4.60 - 6.20 M/uL 11/27/2024 6:22 AM [facility] HEMOGLOBIN 8.4(L) 14.0 - 18.0 g/dL 11/27/2024 6:22 AM [facility] HEMATOCRIT 27.7(L) 41.0 - 53.0 % 11/27/2024 6:22 AM [facility] MCV 103.4(H) 84.0 - 103.0 fL 11/27/2024 6:22 AM [facility] MCH 31.3 27.0 - 34.0 pg 11/27/2024 6:22 AM [facility] MCHC 30.3 30.0 - 35.0 g/dL 11/27/2024 6:22 AM [facility] PLATELETS 172 140 - 440 K/uL 11/27/2024 6:22 AM [facility] MPV 9.9 8.9 - 12.8 fL 11/27/2024 6:22 AM [facility] RDW 14.7(H) 11.0 - 14.5 % 11/27/2024 6:22 AM [facility] RDW-STDEV 55.6(H) 37.0 - 54.0 fL 11/27/2024 6:22 AM [facility] NEUTROPHILS 54 42 - 75 % 11/27/2024 6:22 AM [facility] LYMPHOCYTES 21(L) 24 - 44 % 11/27/2024 6:22 AM [facility] MONOCYTES 7 2 - 10 % 11/27/2024 6:22 AM [facility] EOSINOPHILS 16(H) 0 - 7 % 11/27/2024 6:22 AM [facility] BASOPHILS 1 0 - 1 % 11/27/2024 6:22 AM [facility] IMMATURE GRANULOCYTES 1 0 - 2 % 11/27/2024 6:22 AM [facility] NEUTROPHIL ABSOLUTE 4.77 2.00 - 8.00 K/uL 11/27/2024 6:22 AM CDT [facility] LYMPHOCYTE ABSOLUTE 1.84 1.20 - 4.00 K/uL 11/27/2024 6:22 AM CDT [facility] MONOCYTE ABSOLUTE 0.60 0.10 - 0.60 K/uL 11/27/2024 6:22 AM CDT [facility] EOSINOPHIL ABSOLUTE 1.44(H) 0.00 - 0.70 K/uL 11/27/2024 6:22 AM CDT [facility] BASOPHILS ABSOLUTE 0.07 0.00 - 0.20 K/uL 11/27/2024 6:22 AM CDT [facility] IMMATURE GRANULOCYTES ABSOLUTE 0.05 0.00 - 0.10 K/uL 11/27/2024 6:22 AM T [facility] SMEAR REVIEWED: SR - See Smear Review on Manual Diff. 11/27/2024 6:22 AM [facility] Blood Collection / Unknown 11/27/2024 3:34 AM CDT 11/27/2024 5:50 AM CDT us Hector Coronado MD HEMATOLOGY ORDERABLES Final Result [facility] CLIA # [id number] [address] [place] [phone] * (ABNORMAL) COMPREHENSIVE METABOLIC PANEL (11/27/2024 3:34 AM CDT) SODIUM 138 136 - 145 mmol/L 11/27/2024 7:42 AM CDT [facility] POTASSIUM 5.1 3.5 - 5.1 mmol/L 11/27/2024 7:42 AM CDT [facility] CHLORIDE 103 98 - 107 mmol/L 11/27/2024 7:42 AM CDT [facility] CO2 18(L) 22 - 29 mmol/L 11/27/2024 7:42 AM CDT [facility] CALCIUM 9.1 8.6 - 10.0 mg/dL 11/27/2024 7:42 AM [facility] BUN 34(H) 6 - 20 mg/dL 11/27/2024 7:42 AM [facility] CREATININE 7.02(H) 0.67 - 1.17 mg/dL 11/27/2024 7:42 AM [facility] GLUCOSE 172(H) 74 - 99 mg/dL 11/27/2024 7:42 AM [facility] TOTAL PROTEIN 6.3(L) 6.4 - 8.3 g/dL 11/27/2024 7:42 AM [facility] ALBUMIN 2.8(L) 3.5 - 5.2 g/dL 11/27/2024 7:42 AM [facility] BILIRUBIN TOTAL 0.8 0.0 - 1.0 mg/dL 11/27/2024 7:42 AM [facility] ALKALINE PHOSPHATASE 169(H) 40 - 129 U/L 11/27/2024 7:42 AM [facility] AST 27 10 - 50 U/L 11/27/2024 7:42 AM [facility] ALT 5 <=50 U/L 11/27/2024 7:42 AM [facility] GFR 10(L) >=60 mL/min/1. 73 sq meter 11/27/2024 7:42 AM [facility] Comment:eGFR calculated with 2020 CKD-EPI equation. Vegetarian diet, extremely high or low muscle mass, and may affect results. Cystatin C with Glomerular Filtration Rate is a suitable alternative for these patients. ANION GAP 17 9 - 20 mmol/L 11/27/2024 7:42 AM [facility] Blood Collection / Unknown 11/27/2024 3:34 AM CDT 11/27/2024 5:50 AM CDT us Hector Coronado MD CHEMISTRY ORDERABLES Final R esult [facility] CLIA # [id number] [address] [place] [address] documented in this encounter Visit Diagnoses Not [...] documented as of this encounter Care Teams Rn Private Duty Relationship Specialty Start Date End Date Cc Jailyn, Physician Pc, MD PCP - General Family Practice 02/18/25 documented as of this encounter
--- OUTSIDE RECORDS SUMMARY | 2025-03-14 17:23 | XMS_ITS | Encounter Summary ---
Author Organization [facility] Address [address] [place] [address] Care Team Providers Care Instrument Person Name Role Phone Cc Amb, Physician Pc MD Primary Care Provider Un available Encounter Details Date Type Department Care Team (Late st Contact Info) Description 12/04/2024 Lab Requisition [facility] Laboratory Services [address] [place] [phone] Hector Coronado MD [address] [place] [address] [address] [place] [address] Social History Tobacco Use Types [...] often do you attend chur ch or shinto services? More than 4 times per year 05/03/2021 Do you belong to any clubs o r organizations such as lutheran groups, unions, fraternal or athletic groups, or [...] any time in the past 12 m [facility], were you homeless or living in a prison (including now)? No 05/03/2021 Feeling Safe Answer [...] on file Legal Sex Male 6:04 AM PARTS CLASSIFIER Gender Identity Not on file Sexual Orientation Not on file documented as of this encounter Plan of Treatment Upcoming Encounters Date Type Department Care Team (Late st Contact Info) Description 03/22/2025 12:30 PM PARTS CLASSIFIER Office Visit [facility] Physical Med and Rehab [facility] [address] [place] [address] William Cardozo MD [address] [facility] [address] [place] [address] 03/23/2025 10:50 AM PARTS CLASSIFIER Appointment [facility] Miriam Grijalvailly Laboratory Services [address] [facility] 2 [place] [address] 03/30/2025 7:50 AM PARTS CLASSIFIER Office Visit [facility] Cancer and Hematology [place] [address] [facility] [place] [address] Jignesh Geiger NP [address] [place] [address] documented as of this encounter Procedures Procedure Name Priority Date/Time Associated Diagnosis Comments CBC WITH DIFFERENTIAL Routine 12/04/2024 3:45 AM CDT COMPREHENSIVE METABOLIC PANEL Routine 12/04/2024 3:45 AM CDT documented in this encounter Results * (ABNORMAL) COMPREHENSIVE METABOLIC PANEL (12/04/2024 3:45 AM CDT) SODIUM 144 136 - 145 mmol/L 12/04/2024 6:54 AM CDT [facility] POTASSIUM 5.0 3.5 - 5.1 mmol/L 12/04/2024 6:54 AM [facility] CHLORIDE 105 98 - 107 mmol/L 12/04/2024 6:54 AM [facility] CO2 24 22 - 29 mmol/L 12/04/2024 6:54 AM [facility] CALCIUM 9.7 8.6 - 10.0 mg/dL 12/04/2024 6:54 AM [facility] BUN 35(H) 6 - 20 mg/dL 12/04/2024 6:54 AM [facility] CREATININE 5.68(H) 0.67 - 1.17 mg/dL 12/04/2024 6:54 AM [facility] GLUCOSE 120(H) 74 - 99 mg/dL 12/04/2024 6:54 AM [facility] TOTAL PROTEIN 7.0 6.4 - 8.3 g/dL 12/04/2024 6:54 AM [facility] ALBUMIN 2.6(L) 3.5 - 5.2 g/dL 12/04/2024 6:54 AM [facility] BILIRUBIN TOTAL 0.6 0.0 - 1.0 mg/dL 12/04/2024 6:54 AM [facility] ALKALINE PHOSPHATASE 236(H) 40 - 129 U/L 12/04/2024 6:54 AM [facility] AST 24 10 - 50 U/L 12/04/2024 6:54 AM [facility] ALT <5 <=50 U/L 12/04/2024 6:54 AM [facility] GFR 13(L) >=60 mL/min/1. 73 sq meter 12/04/2024 6:54 AM [facility] Comment:eGFR calculated with 2020 CKD-EPI equation. Vegetarian diet, extremely high or low muscle mass, and may affect results. Cystatin C with Glomerular Filtration Rate is a suitable alternative for these patients. ANION GAP 15 9 - 20 mmol/L 12/04/2024 6:54 AM CDT [facility] Blood Collection / Unknown 12/04/2024 3:45 AM CDT 12/04/2024 5:21 AM CDT Hector Coronado MD CHEMISTRY ORDERABLES Final R esult [facility] CLIA # [id number] [address] [place] [address] [place] [address] * (ABNORMAL) CBC WITH DIFFERENTIAL (12/04/2024 3:45 AM CDT) [facility] WBC 7.5 4.5 - 11.0 K/uL 12/04/2024 5:51 AM CDT [facility] RBC 2.60(L) 4.60 - 6.20 M/uL 12/04/2024 5:51 AM CDT [facility] HEMOGLOBIN 7.9(L) 14.0 - 18.0 g/dL 12/04/2024 5:51 AM CDT [facility] HEMATOCRIT 26.2(L) 41.0 - 53.0 % 12/04/2024 5:51 AM CDT [facility] MCV 100.8 84.0 - 103.0 fL 12/04/2024 5:51 AM CDT [facility] MCH 30.4 27.0 - 34.0 pg 12/04/2024 5:51 AM CDT [facility] MCHC 30.2 30.0 - 35.0 g/dL 12/04/2024 5:51 AM CDT [facility] PLATELETS 148 140 - 440 K/uL 12/04/2024 5:51 AM CDT [facility] MPV 9.2 8.9 - 12.8 fL 12/04/2024 5:51 AM CDT [facility] RDW 15.6(H) 11.0 - 14.5 % 12/04/2024 5:51 AM CDT [facility] RDW-STDEV 56.3(H) 37.0 - 54.0 fL 12/04/2024 5:51 AM CDT [facility] NEUTROPHILS 36(L) 42 - 75 % 12/04/2024 5:51 AM CDT [facility] LYMPHOCYTES 21(L) 24 - 44 % 12/04/2024 5:51 AM CDT [facility] MONOCYTES 13(H) 2 - 10 % 12/04/2024 5:51 AM CDT [facility] EOSINOPHILS 29(H) 0 - 7 % 12/04/2024 5:51 AM CDT [facility] BASOPHILS 1 0 - 1 % 12/04/2024 5:51 AM CDT [facility] IMMATURE GRANULOCYTES 0 0 - 2 % 12/04/2024 5:51 AM CDT [facility] NEUTROPHIL ABSOLUTE 2.72 2.00 - 8.00 K/uL 12/04/2024 5:51 AM T [facility] LYMPHOCYTE ABSOLUTE 1.54 1.20 - 4.00 K/uL 12/04/2024 5:51 AM CDT [facility] MONOCYTE ABSOLUTE 0.94(H) 0.10 - 0.60 K/uL 12/04/2024 5:51 AM CDT [facility] EOSINOPHIL ABSOLUTE 2.18(H) 0.00 - 0.70 K/uL 12/04/2024 5:51 AM T [facility] BASOPHILS ABSOLUTE 0.08 0.00 - 0.20 K/uL 12/04/2024 5:51 AM T [facility] IMMATURE GRANULOCYTES ABSOLUTE 0.03 0.00 - 0.10 K/uL 12/04/2024 5:51 AM T [facility] SMEAR REVIEWED: NA - Not Applicable 12/04/2024 5:51 AM [facility] Blood Collection / Unknown 12/04/2024 3:45 AM CDT 12/04/2024 5:21 AM CDT Hector Coronado MD HEMATOLOGY ORDERABLES Final Result [facility] CLIA # [id number] [address] [address] [place] [address] documented in this encounter Visit Diagnoses Not [...] documented as of this encounter Care Teams Instrument Person Relationship Specialty Start Date End Date Cc Jailyn, Physician Pc, MD PCP - General Family Practice 02/18/25 documented as of this encounter
--- OUTSIDE RECORDS SUMMARY | 2025-03-14 17:23 | XMS_ITS | Encounter Summary ---
Author Organization [facility] Address [address] [place] [address] Care Team Providers Care Textile Slitting Machine Operator Name Role Phone Cc Amb, Physician Pc MD Primary Care Provider Un available Encounter Details Date Type Department Care Team (Late st Contact Info) Description 12/10/2024 Lab Requisition [facility] Laboratory Services [address] [place] [phone] Km Kruse, DO [address] [place] [address] Social History Tobacco Use Types Packs/Day Years [...] often do you attend chur ch or baptism services? More than 4 times per year [...] any time in the past 12 m [facility], were you homeless or living in a retirement (including now)? No 05/03/2021 Feeling Safe Answer [...] on file Legal Sex Male 6:04 AM SURVEILLANCE SUPERVISOR Gender Identity Not on file Sexual Orientation Not on file documented as of this encounter Plan of Treatment Upcoming Encounters Date Type Department Care Team (Late st Contact Info) Description 03/22/2025 12:30 PM SURVEILLANCE SUPERVISOR Office Visit [facility] Physical Med and Rehab [facility] [address] [place] [address] William Cardozo MD [address] [place] [address] 03/23/2025 10:50 AM SURVEILLANCE SUPERVISOR Appointment [facility] Laboratory Services [address] [place] [address] 03/30/2025 7:50 AM SURVEILLANCE SUPERVISOR Office Visit [facility] Cancer and Hematology [place] [address] [place] [address] Jignesh Geiger, MOUNIKA [address] [place] [address] documented as of this encounter Procedures Procedure Name Priority Date/Time Associated Diagnosis Comments LACTIC ACID Stat 12/10/2024 5:00 AM CDT CBC WITH DIFFERENTIAL Routine 12/10/2024 5:00 AM CDT COMPREHENSIVE METABOLIC PANEL Routine 12/10/2024 5:00 AM CDT documented in this encounter Results * (ABNORMAL) CBC WITH DIFFERENTIAL (12/10/2024 5:00 AM CDT) WBC 4.7 4.5 - 11.0 K/uL 12/10/2024 5:50 AM [facility] RBC 2.48(L) 4.60 - 6.20 M/uL 12/10/2024 5:50 AM [facility] HEMOGLOBIN 7.8(L) 14.0 - 18.0 g/dL 12/10/2024 5:50 AM [facility] HEMATOCRIT 24.9(L) 41.0 - 53.0 % 12/10/2024 5:50 AM [facility] MCV 100.4 84.0 - 103.0 fL 12/10/2024 5:50 AM [facility] MCH 31.5 27.0 - 34.0 pg 12/10/2024 5:50 AM [facility] MCHC 31.3 30.0 - 35.0 g/dL 12/10/2024 5:50 AM [facility] PLATELETS 68(L) 140 - 440 K/uL 12/10/2024 5:50 AM [facility] MPV 10.1 8.9 - 12.8 fL 12/10/2024 5:50 AM [facility] RDW 16.2(H) 11.0 - 14.5 % 12/10/2024 5:50 AM [facility] RDW-STDEV 59.6(H) 37.0 - 54.0 fL 12/10/2024 5:50 AM [facility] NEUTROPHILS 33(L) 42 - 75 % 12/10/2024 5:50 AM [facility] LYMPHOCYTES 24 24 - 44 % 12/10/2024 5:50 AM [facility] MONOCYTES 14(H) 2 - 10 % 12/10/2024 5:50 AM [facility] EOSINOPHILS 28(H) 0 - 7 % 12/10/2024 5:50 AM [facility] BASOPHILS 1 0 - 1 % 12/10/2024 5:50 AM [facility] IMMATURE GRANULOCYTES 1 0 - 2 % 12/10/2024 5:50 AM CDT [facility] NEUTROPHIL ABSOLUTE 1.55(L) 2.00 - 8.00 K/uL 12/10/2024 5:50 AM CDT [facility] LYMPHOCYTE ABSOLUTE 1.12(L) 1.20 - 4.00 K/uL 12/10/2024 5:50 AM CDT [facility] MONOCYTE ABSOLUTE 0.64(H) 0.10 - 0.60 K/uL 12/10/2024 5:50 AM CDT [facility] EOSINOPHIL ABSOLUTE 1.32(H) 0.00 - 0.70 K/uL 12/10/2024 5:50 AM CDT [facility] BASOPHILS ABSOLUTE 0.03 0.00 - 0.20 K/uL 12/10/2024 5:50 AM CDT [facility] IMMATURE GRANULOCYTES ABSOLUTE 0.04 0.00 - 0.10 K/uL 12/10/2024 5:50 AM CDT [facility] SMEAR REVIEWED: NA - Not Applicable 12/10/2024 5:50 AM CDT [facility] Blood Collection / Unknown 12/10/2024 5:00 AM CDT 12/10/2024 5:38 AM CDT us Km Kruse DO HEMATOLOGY ORDERABLES Final Result Performing Organization Address City/State/[facility] Co de Phone Number [facility] CLIA # [id number] [address] [place] [id number] * (ABNORMAL) COMPREHENSIVE METABOLIC PANEL (12/10/2024 5:00 AM CDT) SODIUM 138 136 - 145 mmol/L 12/10/2024 6:30 AM CDT [facility] POTASSIUM 4.5 3.5 - 5.1 mmol/L 12/10/2024 6:30 AM CDT [facility] CHLORIDE 101 98 - 107 mmol/L 12/10/2024 6:30 AM [facility] CO2 23 22 - 29 mmol/L 12/10/2024 6:30 AM [facility] CALCIUM 9.7 8.6 - 10.0 mg/dL 12/10/2024 6:30 AM [facility] BUN 40(H) 6 - 20 mg/dL 12/10/2024 6:30 AM [facility] CREATININE 6.36(H) 0.67 - 1.17 mg/dL 12/10/2024 6:30 AM [facility] GLUCOSE 238(H) 74 - 99 mg/dL 12/10/2024 6:30 AM [facility] TOTAL PROTEIN 7.1 6.4 - 8.3 g/dL 12/10/2024 6:30 AM [facility] ALBUMIN 2.3(L) 3.5 - 5.2 g/dL 12/10/2024 6:30 AM [facility] BILIRUBIN TOTAL 0.5 0.0 - 1.0 mg/dL 12/10/2024 6:30 AM [facility] ALKALINE PHOSPHATASE 232(H) 40 - 129 U/L 12/10/2024 6:30 AM [facility] AST 31 10 - 50 U/L 12/10/2024 6:30 AM [facility] ALT <5 <=50 U/L 12/10/2024 6:30 AM [facility] GFR 11(L) >=60 mL/min/1. 73 sq meter 12/10/2024 6:30 AM [facility] Comment:eGFR calculated with 2020 CKD-EPI equation. Vegetarian diet, extremely high or low muscle mass, and may affect results. Cystatin C with Glomerular Filtration Rate is a suitable alternative for these patients. ANION GAP 14 9 - 20 mmol/L 12/10/2024 6:30 AM [facility] Blood Collection / Unknown 12/10/2024 5:00 AM CDT 12/10/2024 5:38 AM CDT Km Kruse DO CHEMISTRY ORDERABLES Final R esult Performing Organization Address City/[facility]/ZIP Co de Phone Number [facility] [employer] [facility] CLIA # [id number] [address] [address] * LACTIC ACID (12/10/2024 5:00 AM CDT) LACTIC ACID 1.2 <=2.0 mmol/L 12/10/2024 5:53 AM CDT [facility] [employer] [facility] Blood Collection / Unknown 12/10/2024 5:00 AM CDT 12/10/2024 5:31 AM CDT Km Kruse DO CHEMISTRY ORDERABLES Final R eszhen Performing Organization Address City/[facility] Co de Phone Number [facility] [employer] [facility] CLIA # [id number] [address] [address] documented in this encounter Visit Diagnoses Not [...] documented as of this encounter Care Teams Textile Slitting Machine Operator Relationship Specialty Start Date End Date Cc Amb, Physician Pc, MD PCP - General Family Practice 02/18/25 documented as of this encounter
--- OUTSIDE RECORDS SUMMARY | 2025-03-14 17:23 | XMS_ITS | Encounter Summary ---
Author Organization [facility] Address [address] [place] [address] Care Team Providers Care Client Server Programmer Name Role Phone Cc Amb, Physician Pc MD Primary Care Provider Un available Encounter Details Date Type Department Care Team (Late st Contact Info) Description 12/07/2024 Lab Requisition [facility] Laboratory Services [address] [place] [phone] Hector Coronado MD [address] [place] [address] [address] [place] [address] Social History Tobacco Use Types [...] often do you attend chur ch or presybeterian services? 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 SERVICE TEAM MEMBER Gender Identity Not on file Sexual Orientation Not on file documented as of this encounter Plan of Treatment Upcoming Encounters Date Type Department Care Team (Late st Contact Info) Description 03/22/2025 12:30 PM SEAFOOD SERVICE TEAM MEMBER Office Visit [facility] Physical Med and Rehab [facility] [address] [place] [address] William Cardozo MD [address] [place] [address] 03/23/2025 10:50 AM SEAFOOD SERVICE TEAM MEMBER Appointment [facility] Miriam Dani[facility] Laboratory Services [address] [place] [address] 03/30/2025 7:50 AM SEAFOOD SERVICE TEAM MEMBER Office Visit [facility] Cancer and Hematology [place] [address] [facility] [address] [place] [address] Jignesh Geiger NP [address] [place] [address] documented as of this encounter Procedures Procedure Name Priority Date/Time Associated Diagnosis Comments CBC WITH DIFFERENTIAL Routine 12/07/2024 4:25 AM CDT PHOSPHORUS Routine 12/07/2024 4:25 AM CDT COMPREHENSIVE METABOLIC PANEL Routine 12/07/2024 4:25 AM CDT documented in this encounter Results * (ABNORMAL) CBC WITH DIFFERENTIAL (12/07/2024 4:25 AM CDT) WBC 3.6(L) 4.5 - 11.0 K/uL 12/07/2024 6:19 AM [facility] NRBCS 1(H) <1 % 12/07/2024 6:19 AM [facility] RBC 2.63(L) 4.60 - 6.20 M/uL 12/07/2024 6:19 AM [facility] HEMOGLOBIN 8.3(L) 14.0 - 18.0 g/dL 12/07/2024 6:19 AM [facility] HEMATOCRIT 27.3(L) 41.0 - 53.0 % 12/07/2024 6:19 AM [facility] MCV 103.8(H) 84.0 - 103.0 fL 12/07/2024 6:19 AM [facility] MCH 31.6 27.0 - 34.0 pg 12/07/2024 6:19 AM [facility] MCHC 30.4 30.0 - 35.0 g/dL 12/07/2024 6:19 AM [facility] PLATELETS 59(L) 140 - 440 K/uL 12/07/2024 6:19 AM [facility] MPV 10.1 8.9 - 12.8 fL 12/07/2024 6:19 AM [facility] RDW 15.6(H) 11.0 - 14.5 % 12/07/2024 6:19 AM [facility] RDW-STDEV 57.3(H) 37.0 - 54.0 fL 12/07/2024 6:19 AM [facility] NEUTROPHILS 22(L) 42 - 75 % 12/07/2024 6:19 AM [facility] LYMPHOCYTES 27 24 - 44 % 12/07/2024 6:19 AM [facility] MONOCYTES 12(H) 2 - 10 % 12/07/2024 6:19 AM [facility] EOSINOPHILS 39(H) 0 - 7 % 12/07/2024 6:19 AM CDT [facility] BASOPHILS 1 0 - 1 % 12/07/2024 6:19 AM CDT [facility] IMMATURE GRANULOCYTES 1 0 - 2 % 12/07/2024 6:19 AM CDT [facility] NEUTROPHIL ABSOLUTE 0.80(L) 2.00 - 8.00 K/uL 12/07/2024 6:19 AM CDT [facility] LYMPHOCYTE ABSOLUTE 0.95(L) 1.20 - 4.00 K/uL 12/07/2024 6:19 AM CDT [facility] MONOCYTE ABSOLUTE 0.41 0.10 - 0.60 K/uL 12/07/2024 6:19 AM CDT [facility] EOSINOPHIL ABSOLUTE 1.38(H) 0.00 - 0.70 K/uL 12/07/2024 6:19 AM CDT [facility] BASOPHILS ABSOLUTE 0.02 0.00 - 0.20 K/uL 12/07/2024 6:19 AM CDT [facility] IMMATURE GRANULOCYTES ABSOLUTE 0.02 0.00 - 0.10 K/uL 12/07/2024 6:19 AM CDT [facility] SMEAR REVIEWED: NN - No Action Needed 12/07/2024 6:19 AM T [facility] Blood Collection / Unknown 12/07/2024 4:25 AM CDT 12/07/2024 5:48 AM CDT Hector Coronado MD HEMATOLOGY ORDERABLES Final Result [facility] CLIA # [id number] [address] [place] [id number] * (ABNORMAL) PHOSPHORUS (12/07/2024 4:25 AM CDT) [facility] PHOSPHORUS 10.3(H) 2.5 - 4.5 mg/dL 12/07/2024 6:39 AM CDT [facility] Blood Collection / Unknown 12/07/2024 4:25 AM CDT 12/07/2024 5:48 AM CDT us Hector Coronado MD CHEMISTRY ORDERABLES Final R esult [facility] CLIA # [id number] [address] [place] [address] * (ABNORMAL) COMPREHENSIVE METABOLIC PANEL (12/07/2024 4:25 AM CDT) SODIUM 147(H) 136 - 145 mmol/L 12/07/2024 6:39 AM CDT [facility] POTASSIUM 4.3 3.5 - 5.1 mmol/L 12/07/2024 6:39 AM CDT [facility] CHLORIDE 106 98 - 107 mmol/L 12/07/2024 6:39 AM CDT [facility] CO2 19(L) 22 - 29 mmol/L 12/07/2024 6:39 AM T [facility] CALCIUM 9.7 8.6 - 10.0 mg/dL 12/07/2024 6:39 AM CDT [facility] BUN 45(H) 6 - 20 mg/dL 12/07/2024 6:39 AM T [facility] CREATININE 7.09(H) 0.67 - 1.17 mg/dL 12/07/2024 6:39 AM T [facility] GLUCOSE 90 74 - 99 mg/dL 12/07/2024 6:39 AM T [facility] TOTAL PROTEIN 7.2 6.4 - 8.3 g/dL 12/07/2024 6:39 AM T [facility] ALBUMIN 2.8(L) 3.5 - 5.2 g/dL 12/07/2024 6:39 AM T [facility] BILIRUBIN TOTAL 0.6 0.0 - 1.0 mg/dL 12/07/2024 6:39 AM T [facility] ALKALINE PHOSPHATASE 229(H) 40 - 129 U/L 12/07/2024 6:39 AM CDT [facility] AST 22 10 - 50 U/L 12/07/2024 6:39 AM CDT [facility] ALT <5 <=50 U/L 12/07/2024 6:39 AM CDT [facility] GFR 10(L) >=60 mL/min/1. 73 sq meter 12/07/2024 6:39 AM CDT [facility] Comment:eGFR calculated with 2020 CKD-EPI equation. Vegetarian diet, extremely high or low muscle mass, and may affect results. Cystatin C with Glomerular Filtration Rate is a suitable alternative for these patients. ANION GAP 22(H) 9 - 20 mmol/L 12/07/2024 6:39 AM T [facility] Blood Collection / Unknown 12/07/2024 4:25 AM CDT 12/07/2024 5:48 AM CDT Hector Coronado MD CHEMISTRY ORDERABLES Final R esult [facility] CLIA # [id number] [address] [place] [id number] documented in this encounter Visit Diagnoses Not [...] documented as of this encounter Care Teams Client Server Programmer Relationship Specialty Start Date End Date Cc Amb, Physician Pc, MD PCP - General Family Practice 02/18/25 documented as of this encounter
--- OUTSIDE RECORDS SUMMARY | 2025-03-14 17:23 | XMS_ITS | Encounter Summary ---
Author Organization [facility] Address [address] [place] [address] Care Team Providers Care Scenic Artist Name Role Phone Cc Amb, Physician Pc MD Primary Care Provider Un available Encounter Details Date Type Department Care Team (Late st Contact Info) Description 11/26/2024 Lab Requisition [facility] Laboratory Services [address] [place] [phone] [facility], External Provider [address] [place] [address] Social History Tobacco Use Types Packs/Day Years [...] often do you attend chur ch or protestant services? More than 4 times per year 05/03/2021 Do you belong to any clubs o r organizations such as sikh groups, unions, fraternal or athletic groups, or [...] any time in the past 12 m [facility], were you homeless or living in a nursing home (including now)? No 05/03/2021 Feeling Safe Answer [...] on file Legal Sex Male 6:04 AM CAMPAIGN DEVELOPER Gender Identity Not on file Sexual Orientation Not on file documented as of this encounter Plan of Treatment Upcoming Encounters Date Type Department Care Team (Late st Contact Info) Description 03/22/2025 12:30 PM CAMPAIGN DEVELOPER Office Visit [facility] Physical Med and Rehab [facility] [place] [address] [place] [phone] William Cardozo MD [address] [place] [phone] 03/23/2025 10:50 AM CAMPAIGN DEVELOPER Appointment [facility] Miriam Iniguez Laboratory Services [address] [place] [address] 03/30/2025 7:50 AM CAMPAIGN DEVELOPER Office Visit [facility] Cancer and Hematology [place] [address] [place] [address] Jignesh Geiger NP [address] [place] [phone] documented as of this encounter Procedures Procedure Name Priority Date/Time Associated Diagnosis Comments HEPATITIS B SURFACE AB, QUANT Routine 11/26/2024 2:42 AM CDT HEPATITIS B SURFACE ANTIGEN Routine 11/26/2024 2:42 AM CDT HEPATITIS B CORE IGM Routine 11/26/2024 2:42 AM CDT CBC WITH DIFFERENTIAL Routine 11/26/2024 2:42 AM CDT PREALBUMIN Routine 11/26/2024 2:42 AM CDT PHOSPHORUS Routine 11/26/2024 2:42 AM CDT COMPREHENSIVE METABOLIC PANEL Routine 11/26/2024 2:42 AM CDT documented in this encounter Results * HEPATITIS B CORE IGM (11/26/2024 2:42 AM CDT) Pathologist [facility] HEPATITIS B CORE IGM NON-REACT MIRIAM Non-react miriam 11/26/2024 6:59 AM CDT [facility] Comment:IgM antibodies to HB c were not detected; does not exclude the possibility of exposure to HBV. Blood Collection / Unknown 11/26/2024 2:42 AM CDT 11/26/2024 6:06 AM CDT External Provider [facility] CHEMISTRY ORDERABLES Final Result Performing Organization Address [facility] Co de Phone Number [facility] CLIA # [id number] [address] [address] * HEPATITIS B SURFACE ANTIGEN (11/26/2024 2:42 AM CDT) Pathologist [facility] HEPATITIS B SURFACE AG NON-REACT MIRIAM Non-react miriam 11/26/2024 6:59 AM CDT [facility] Comment:A non-reactive test result does not exclude the possibility of exposure to or infection with hepatitis B. Blood Collection / Unknown 11/26/2024 2:42 AM CDT 11/26/2024 6:06 AM CDT External Provider [facility] CHEMISTRY ORDERABLES Final Result [facility] CLIA # [id number] [address] [address] * HEPATITIS B SURFACE AB, QUANT (11/26/2024 2:42 AM CDT) HEPATITIS B SURFACE AB >1000 > OR = 10 mIU/mL 11/27/2024 3:42 PM CDT [facility] Comment: Patient has immunity to hepatitis B virus. For additional information, please refer to http://education.iXpert/faq/ZSW679 (This link is being provided for informational/ educational purposes only). Blood Collection / Unknown 11/26/2024 2:42 AM CDT 11/26/2024 6:06 AM CDT Narrative [facility] - 11/27/2024 3:42 PM CDT Performing Organization Information: Site ID: [place] Name: [employer] Address: [address] [place] [address] Director: Chano Delarosa MD External Provider [facility] CHEMISTRY ORDERABLES Final Result Performing Organization Address [facility] Co de Phone Number [facility] * (ABNORMAL) PREALBUMIN (11/26/2024 2:42 AM CDT) Pathologist [facility] PREALBUMIN 12(L) 21 - 43 mg/dL 11/27/2024 4:39 AM CDT [facility] Blood Collection / Unknown 11/26/2024 2:42 AM CDT 11/26/2024 6:06 AM CDT Narrative [facility] - 11/27/2024 4:39 AM CDT Performing Organization Information: Site ID: [place] Name: [employer] Address: [address] [place] [address] Director: Chano Delarosa MD us External Provider [facility] CHEMISTRY ORDERABLES Final Result Performing Organization Address [facility] de Phone Number [facility] * (ABNORMAL) PHOSPHORUS (11/26/2024 2:42 AM CDT) PHOSPHORUS 5.4(H) 2.5 - 4.5 mg/dL 11/26/2024 6:58 AM CDT [facility] Blood Collection / Unknown 11/26/2024 2:42 AM CDT 11/26/2024 6:06 AM CDT us External Provider [facility] CHEMISTRY ORDERABLES Final Result [facility] CLIA # [id number] [facility] [address] [place] [address] * (ABNORMAL) COMPREHENSIVE METABOLIC PANEL (11/26/2024 2:42 AM CDT) Pathologist [facility] SODIUM 137 136 - 145 mmol/L 11/26/2024 6:58 AM CDT [facility] POTASSIUM 4.6 3.5 - 5.1 mmol/L 11/26/2024 6:58 AM CDT [facility] CHLORIDE 101 98 - 107 mmol/L 11/26/2024 6:58 AM CDT [facility] CO2 23 22 - 29 mmol/L 11/26/2024 6:58 AM CDT [facility] CALCIUM 9.2 8.6 - 10.0 mg/dL 11/26/2024 6:58 AM T [facility] BUN 20 6 - 20 mg/dL 11/26/2024 6:58 AM T [facility] CREATININE 4.80(H) 0.67 - 1.17 mg/dL 11/26/2024 6:58 AM T [facility] GLUCOSE 115(H) 74 - 99 mg/dL 11/26/2024 6:58 AM CDT [facility] TOTAL PROTEIN 6.6 6.4 - 8.3 g/dL 11/26/2024 6:58 AM CDT [facility] ALBUMIN 2.9(L) 3.5 - 5.2 g/dL 11/26/2024 6:58 AM CDT [facility] BILIRUBIN TOTAL 0.9 0.0 - 1.0 mg/dL 11/26/2024 6:58 AM [facility] ALKALINE PHOSPHATASE 169(H) 40 - 129 U/L 11/26/2024 6:58 AM [facility] AST 28 10 - 50 U/L 11/26/2024 6:58 AM [facility] ALT 12 <=50 U/L 11/26/2024 6:58 AM [facility] GFR 15(L) >=60 mL/min/1. 73 sq meter 11/26/2024 6:58 AM [facility] Comment:eGFR calculated with 2020 CKD-EPI equation. Vegetarian diet, extremely high or low muscle mass, and may affect results. Cystatin C with Glomerular Filtration Rate is a suitable alternative for these patients. ANION GAP 13 9 - 20 mmol/L 11/26/2024 6:58 AM [facility] Blood Collection / Unknown 11/26/2024 2:42 AM CDT 11/26/2024 6:06 AM CDT External Provider [facility] CHEMISTRY ORDERABLES Final Result [facility] CLIA # [id number] [address] [place] [address] * (ABNORMAL) CBC WITH DIFFERENTIAL (11/26/2024 2:42 AM CDT) Pathologist [facility] WBC 7.7 4.5 - 11.0 K/uL 11/26/2024 6:20 AM [facility] RBC 2.89(L) 4.60 - 6.20 M/uL 11/26/2024 6:20 AM [facility] HEMOGLOBIN 9.0(L) 14.0 - 18.0 g/dL 11/26/2024 6:20 AM [facility] HEMATOCRIT 29.7(L) 41.0 - 53.0 % 11/26/2024 6:20 AM [facility] MCV 102.8 84.0 - 103.0 fL 11/26/2024 6:20 AM [facility] MCH 31.1 27.0 - 34.0 pg 11/26/2024 6:20 AM [facility] MCHC 30.3 30.0 - 35.0 g/dL 11/26/2024 6:20 AM [facility] PLATELETS 187 140 - 440 K/uL 11/26/2024 6:20 AM [facility] MPV 9.4 8.9 - 12.8 fL 11/26/2024 6:20 AM [facility] RDW 15.1(H) 11.0 - 14.5 % 11/26/2024 6:20 AM [facility] RDW-STDEV 57.1(H) 37.0 - 54.0 fL 11/26/2024 6:20 AM [facility] NEUTROPHILS 58 42 - 75 % 11/26/2024 6:20 AM [facility] LYMPHOCYTES 16(L) 24 - 44 % 11/26/2024 6:20 AM [facility] MONOCYTES 7 2 - 10 % 11/26/2024 6:20 AM [facility] EOSINOPHILS 17(H) 0 - 7 % 11/26/2024 6:20 AM [facility] BASOPHILS 1 0 - 1 % 11/26/2024 6:20 AM [facility] IMMATURE GRANULOCYTES 1 0 - 2 % 11/26/2024 6:20 AM [facility] NEUTROPHIL ABSOLUTE 4.50 2.00 - 8.00 K/uL 11/26/2024 6:20 AM [facility] LYMPHOCYTE ABSOLUTE 1.25 1.20 - 4.00 K/uL 11/26/2024 6:20 AM [facility] MONOCYTE ABSOLUTE 0.56 0.10 - 0.60 K/uL 11/26/2024 6:20 AM [facility] EOSINOPHIL ABSOLUTE 1.29(H) 0.00 - 0.70 K/uL 11/26/2024 6:20 AM CDT [facility] BASOPHILS ABSOLUTE 0.04 0.00 - 0.20 K/uL 11/26/2024 6:20 AM CDT [facility] IMMATURE GRANULOCYTES ABSOLUTE 0.07 0.00 - 0.10 K/uL 11/26/2024 6:20 AM CDT [facility] SMEAR REVIEWED: NN - No Action Needed 11/26/2024 6:20 AM CDT [facility] Blood Collection / Unknown 11/26/2024 2:42 AM CDT 11/26/2024 6:06 AM CDT External Provider [facility] HEMATOLOGY ORDERABLES [place] l Result Performing Organization Address City/State/[facility] Co de Phone Number [facility] CLIA # [id number] [address] [place] [address] documented in this encounter Visit Diagnoses Not [...] documented as of this encounter Care Teams Scenic Artist Relationship Specialty Start Date End Date Cc Jailyn, Physician Pc, MD PCP - General Family Practice 02/18/25 documented as of this encounter
--- OUTSIDE RECORDS SUMMARY | 2025-03-14 17:23 | XMS_ITS | Encounter Summary ---
Author Organization [facility] Address [address] [place] [address] Care Team Providers Care Electronic Security Specialist Name Role Phone Cc Amb, Physician Pc MD Primary Care Provider Un available Encounter Details Date Type Department Care Team (Late st Contact Info) Description 12/02/2024 Lab Requisition [facility] Laboratory Services [address] [place] [phone] [facility], External Provider [address] [place] [address] Social History Tobacco Use Types Packs/Day Years [...] often do you attend chur ch or samaritan services? More than 4 times per year [...] health care facility (including now)? No 05/03/2021 Feeling Safe Answer [...] on file Legal Sex Male 6:04 AM MEDIC TECHNICIAN Gender Identity Not on file Sexual Orientation Not on file documented as of this encounter Plan of Treatment Upcoming Encounters Date Type Department Care Team (Late st Contact Info) Description 03/22/2025 12:30 PM MEDIC TECHNICIAN Office Visit [facility] Physical Med and Re[facility] [address] [place] [phone] William Cardozo MD [address] [place] [phone] 03/23/2025 10:50 AM MEDIC TECHNICIAN Appointment [facility] Miriam Iniguez Laboratory Services [address] [place] [address] 03/30/2025 7:50 AM MEDIC TECHNICIAN Office Visit [facility] Cancer and Hematology [place] [address] [place] [address] Jignesh Geiger NP [address] [place] [phone] documented as of this encounter Procedures Procedure Name Priority Date/Time Associated Diagnosis Comments CBC WITH DIFFERENTIAL Stat 12/02/2024 7:30 AM CDT PHOSPHORUS Stat 12/02/2024 7:30 AM CDT COMPREHENSIVE METABOLIC PANEL Stat 12/02/2024 7:30 AM CDT documented in this encounter Results * (ABNORMAL) PHOSPHORUS (12/02/2024 7:30 AM CDT) PHOSPHORUS 7.2(H) 2.5 - 4.5 mg/dL 12/02/2024 9:02 AM CDT [facility] Blood Collection / Unknown 12/02/2024 7:30 AM CDT 12/02/2024 8:13 AM CDT us External Provider [facility] CHEMISTRY ORDERABLES Final Result [facility] CLIA # [id number] [address] [place] [address] [place] [address] * (ABNORMAL) CBC WITH DIFFERENTIAL (12/02/2024 7:30 AM CDT) Pathologist [facility] WBC 7.1 4.5 - 11.0 K/uL 12/02/2024 8:20 AM CDT [facility] RBC 2.58(L) 4.60 - 6.20 M/uL 12/02/2024 8:20 AM CDT [facility] HEMOGLOBIN 7.9(L) 14.0 - 18.0 g/dL 12/02/2024 8:20 AM CDT [facility] HEMATOCRIT 25.8(L) 41.0 - 53.0 % 12/02/2024 8:20 AM CDT [facility] MCV 100.0 84.0 - 103.0 fL 12/02/2024 8:20 AM CDT [facility] MCH 30.6 27.0 - 34.0 pg 12/02/2024 8:20 AM CDT [facility] MCHC 30.6 30.0 - 35.0 g/dL 12/02/2024 8:20 AM CDT [facility] PLATELETS 179 140 - 440 K/uL 12/02/2024 8:20 AM CDT [facility] MPV 9.3 8.9 - 12.8 fL 12/02/2024 8:20 AM CDT [facility] RDW 15.7(H) 11.0 - 14.5 % 12/02/2024 8:20 AM CDT [facility] RDW-STDEV 55.6(H) 37.0 - 54.0 fL 12/02/2024 8:20 AM CDT [facility] NEUTROPHILS 52 42 - 75 % 12/02/2024 8:20 AM T [facility] LYMPHOCYTES 23(L) 24 - 44 % 12/02/2024 8:20 AM T [facility] MONOCYTES 10 2 - 10 % 12/02/2024 8:20 AM T [facility] EOSINOPHILS 13(H) 0 - 7 % 12/02/2024 8:20 AM CDT [facility] BASOPHILS 1 0 - 1 % 12/02/2024 8:20 AM T [facility] IMMATURE GRANULOCYTES 1 0 - 2 % 12/02/2024 8:20 AM T [facility] NEUTROPHIL ABSOLUTE 3.71 2.00 - 8.00 K/uL 12/02/2024 8:20 AM T [facility] LYMPHOCYTE ABSOLUTE 1.64 1.20 - 4.00 K/uL 12/02/2024 8:20 AM [facility] MONOCYTE ABSOLUTE 0.70(H) 0.10 - 0.60 K/uL 12/02/2024 8:20 AM [facility] EOSINOPHIL ABSOLUTE 0.94(H) 0.00 - 0.70 K/uL 12/02/2024 8:20 AM [facility] BASOPHILS ABSOLUTE 0.07 0.00 - 0.20 K/uL 12/02/2024 8:20 AM [facility] IMMATURE GRANULOCYTES ABSOLUTE 0.05 0.00 - 0.10 K/uL 12/02/2024 8:20 AM [facility] SMEAR REVIEWED: NA - Not Applicable 12/02/2024 8:20 AM [facility] Blood Collection / Unknown 12/02/2024 7:30 AM CDT 12/02/2024 8:13 AM CDT us External Provider [facility] HEMATOLOGY ORDERABLES [place] l Result [facility] CLIA # [id number] [address] [address] [place] [address] * (ABNORMAL) COMPREHENSIVE METABOLIC PANEL (12/02/2024 7:30 AM CDT) SODIUM 146(H) 136 - 145 mmol/L 12/02/2024 9:02 AM T [facility] POTASSIUM 4.6 3.5 - 5.1 mmol/L 12/02/2024 9:02 AM T [facility] CHLORIDE 107 98 - 107 mmol/L 12/02/2024 9:02 AM T [facility] CO2 25 22 - 29 mmol/L 12/02/2024 9:02 AM [facility] CALCIUM 9.4 8.6 - 10.0 mg/dL 12/02/2024 9:02 AM T [facility] BUN 34(H) 6 - 20 mg/dL 12/02/2024 9:02 AM T [facility] CREATININE 5.20(H) 0.67 - 1.17 mg/dL 12/02/2024 9:02 AM T [facility] GLUCOSE 82 74 - 99 mg/dL 12/02/2024 9:02 AM [facility] TOTAL PROTEIN 6.9 6.4 - 8.3 g/dL 12/02/2024 9:02 AM [facility] ALBUMIN 2.9(L) 3.5 - 5.2 g/dL 12/02/2024 9:02 AM T [facility] BILIRUBIN TOTAL 0.7 0.0 - 1.0 mg/dL 12/02/2024 9:02 AM T [facility] ALKALINE PHOSPHATASE 227(H) 40 - 129 U/L 12/02/2024 9:02 AM T [facility] AST 30 10 - 50 U/L 12/02/2024 9:02 AM T [facility] ALT <5 <=50 U/L 12/02/2024 9:02 AM CDT [facility] GFR 14(L) >=60 mL/min/1. 73 sq meter 12/02/2024 9:02 AM CDT [facility] Comment:eGFR calculated with 2020 CKD-EPI equation. Vegetarian diet, extremely high or low muscle mass, and may affect results. Cystatin C with Glomerular Filtration Rate is a suitable alternative for these patients. ANION GAP 14 9 - 20 mmol/L 12/02/2024 9:02 AM CDT [facility] Blood Collection / Unknown 12/02/2024 7:30 AM CDT 12/02/2024 8:13 AM CDT us External Provider [facility] CHEMISTRY ORDERABLES Final Result [facility] CLIA # [id number] [address] [place] [address] documented in this encounter Visit Diagnoses Not [...] documented as of this encounter Care Teams Electronic Security Specialist Relationship Specialty Start Date End Date Cc Jailyn, Physician Pc, MD PCP - General Family Practice 02/18/25 documented as of this encounter
--- OUTSIDE RECORDS SUMMARY | 2025-03-14 17:23 | XMS_ITS | Encounter Summary ---
Author Organization [facility] Address [address] [place] [address] Care Team Providers Care Coil Cleaner Name Role Phone Cc Amb, Physician Pc MD Primary Care Provider Un available Encounter Details Date Type Department Care Team (Late st Contact Info) Description 12/09/2024 Lab Requisition [facility] Laboratory Services [address] [place] [phone] [facility], External Provider [address] [place] [address] Social History Tobacco Use Types Packs/Day Years [...] often do you attend chur ch or pentecostalism services? More than 4 times per year [...] any time in the past 12 [facility], were you homeless or living in [...] on file Legal Sex Male 6:04 AM CUSTOMER PROGRAM MANAGER Gender Identity Not on file Sexual Orientation Not on file documented as of this encounter Plan of Treatment Upcoming Encounters Date Type Department Care Team (Late st Contact Info) Description 03/22/2025 12:30 PM CUSTOMER PROGRAM MANAGER Office Visit [facility] Physical Med and Rehab [facility] [place] [address] [place] [phone] William Cardozo MD [address] [place] [phone] 03/23/2025 10:50 AM CUSTOMER PROGRAM MANAGER Appointment [facility] Miriam Iniguez Laboratory Services [address] [place] [address] 03/30/2025 7:50 AM CUSTOMER PROGRAM MANAGER Office Visit [facility] Cancer and Hematology [place] [address] [place] [address] Jignesh Geiger NP [address] [place] [address] documented as of this encounter Procedures Procedure Name Priority Date/Time Associated Diagnosis Comments BASIC METABOLIC PANEL Routine 12/09/2024 4:45 PM CDT documented in this encounter Results * (ABNORMAL) BASIC METABOLIC PANEL (12/09/2024 4:45 PM CDT) SODIUM 140 136 - 145 mmol/L 12/09/2024 6:17 PM CDT [facility] POTASSIUM 4.8 3.5 - 5.1 mmol/L 12/09/2024 6:17 PM CDT [facility] CHLORIDE 104 98 - 107 mmol/L 12/09/2024 6:17 PM CDT [facility] CO2 23 22 - 29 mmol/L 12/09/2024 6:17 PM CDT [facility] CALCIUM 9.6 8.6 - 10.0 mg/dL 12/09/2024 6:17 PM CDT [facility] BUN 31(H) 6 - 20 mg/dL 12/09/2024 6:17 PM T [facility] CREATININE 5.54(H) 0.67 - 1.17 mg/dL 12/09/2024 6:17 PM T [facility] GLUCOSE 164(H) 74 - 99 mg/dL 12/09/2024 6:17 PM T [facility] GFR 13(L) >=60 mL/min/1. 73 sq meter 12/09/2024 6:17 PM T [facility] Comment:eGFR calculated with 2020 CKD-EPI equation. Vegetarian diet, extremely high or low muscle mass, and may affect results. Cystatin C with Glomerular Filtration Rate is a suitable alternative for these patients. ANION GAP 13 9 - 20 mmol/L 12/09/2024 6:17 PM T [facility] Blood Collection / Unknown 12/09/2024 4:45 PM CDT 12/09/2024 5:45 PM CDT us External Provider [facility] CHEMISTRY ORDERABLES Final Result Performing Organization Address City/State/[facility] Co de Phone Number [facility] CLIA # [id number] [address] [place] [address] documented in this encounter Visit Diagnoses Not [...] documented as of this encounter Care Teams Coil Cleaner Relationship Specialty Start Date End Date Cc Jailyn, Physician Pc, MD PCP - General Family Practice 02/18/25 documented as of this encounter
--- OUTSIDE RECORDS SUMMARY | 2025-03-14 17:23 | XMS_ITS | Encounter Summary ---
Author Organization [facility] Address [address] [place] [address] Care Team Providers Care Drafting Layout Worker Name Role Phone Cc Amb, Physician Pc MD Primary Care Provider Un available Encounter Details Date Type Department Care Team (Late st Contact Info) Description 12/08/2024 Lab Requisition [facility] Laboratory Services [address] [place] [place] [phone] [facility], External Provider [address] [place] [address] Social History Tobacco Use Types Packs/Day Years [...] often do you attend chur ch or synagogue services? More than 4 times per year 05/03/2021 Do you belong to any clubs o r organizations such as cheondoism groups, unions, fraternal or athletic groups, or [...] any time in the past 12 m [facility], were you homeless or living in a [...] on file Legal Sex Male 6:04 AM PROCEDURAL NURSE Gender Identity Not on file Sexual Orientation Not on file documented as of this encounter Plan of Treatment Upcoming Encounters Date Type Department Care Team (Late st Contact Info) Description 03/22/2025 12:30 PM PROCEDURAL NURSE Office Visit [facility] Physical Med and Rehab [facility] [address] [place] [phone] William Cardozo MD [address] [place] [phone] 03/23/2025 10:50 AM PROCEDURAL NURSE Appointment [facility] Miriam Iniguez Laboratory Services [address] [place] [address] 03/30/2025 7:50 AM PROCEDURAL NURSE Office Visit [facility] Cancer and Hematology [place] [address] [place] [address] Jignesh Geiger NP [address] [place] [address] documented as of this encounter Procedures Procedure Name Priority Date/Time Associated Diagnosis Comments BASIC METABOLIC PANEL Routine 12/08/2024 2:50 PM CDT documented in this encounter Results * (ABNORMAL) BASIC METABOLIC PANEL (12/08/2024 2:50 PM CDT) SODIUM 136 136 - 145 mmol/L 12/08/2024 5:26 PM CDT [facility] LABORATORY [facility] POTASSIUM 3.7 3.5 - 5.1 mmol/L 12/08/2024 5:26 PM CDT [facility] CHLORIDE 99 98 - 107 mmol/L 12/08/2024 5:26 PM CDT [facility] CO2 21(L) 22 - 29 mmol/L 12/08/2024 5:26 PM CDT [facility] CALCIUM 8.1(L) 8.6 - 10.0 mg/dL 12/08/2024 5:26 PM CDT [facility] BUN 22(H) 6 - 20 mg/dL 12/08/2024 5:26 PM T [facility] CREATININE 3.84(H) 0.67 - 1.17 mg/dL 12/08/2024 5:26 PM T [facility] GLUCOSE 369(H) 74 - 99 mg/dL 12/08/2024 5:26 PM T [facility] GFR 20(L) >=60 mL/min/1. 73 sq meter 12/08/2024 5:26 PM T [facility] Comment:eGFR calculated with 2020 CKD-EPI equation. Vegetarian diet, extremely high or low muscle mass, and may affect results. Cystatin C with Glomerular Filtration Rate is a suitable alternative for these patients. ANION GAP 16 9 - 20 mmol/L 12/08/2024 5:26 PM [facility] Blood Collection / Unknown 12/08/2024 2:50 PM CDT 12/08/2024 5:05 PM CDT us External Provider [facility] CHEMISTRY ORDERABLES Final Result [facility] CLIA # [id number] [address] [place] [address] documented in this encounter Visit Diagnoses Not [...] documented as of this encounter Care Teams Drafting Layout Worker Relationship Specialty Start Date End Date Cc Jailyn, Physician Pc, MD PCP - General Family Practice 02/18/25 documented as of this encounter
--- OUTSIDE RECORDS SUMMARY | 2025-03-14 17:23 | XMS_ITS | Encounter Summary ---
Author Organization [facility] Address [address] [place] [address] Care Team Providers Care Clerical Support Name Role Phone Cc Amb, Physician Pc MD Primary Care Provider Un available Encounter Details Date Type Department Care Team (Late st Contact Info) Description 12/08/2024 Lab Requisition [facility] Laboratory Services [address] [place] [phone] [facility], External Provider [address] [place] [address] Social History Tobacco Use Types Packs/Day Years [...] often do you attend chur ch or moravian services? More than 4 times per year 05/03/2021 Do you belong to any clubs o r organizations such as spiritism groups, unions, fraternal or athletic groups, or [...] any time in the past 12 m [facility], were you homeless or living in a fci (including now)? No 05/03/2021 Feeling Safe Answer [...] on file Legal Sex Male 6:04 AM LEAD REFINER Gender Identity Not on file Sexual Orientation Not on file documented as of this encounter Plan of Treatment Upcoming Encounters Date Type Department Care Team (Late st Contact Info) Description 03/22/2025 12:30 PM LEAD REFINER Office Visit [facility] Physical Med and Rehab [facility] [address] [place] [phone] William Cardozo MD [address] [place] [phone] 03/23/2025 10:50 AM LEAD REFINER Appointment [facility] Miriam Iniguez Laboratory Services [address] [place] [address] 03/30/2025 7:50 AM LEAD REFINER Office Visit [facility] Cancer and Hematology [place] [address] [place] [address] Jignesh Geiger NP [address] [place] [address] documented as of this encounter Procedures Procedure Name Priority Date/Time Associated Diagnosis Comments RENAL FUNCTION PANEL Routine 12/08/2024 4:00 AM CDT documented in this encounter Results * (ABNORMAL) RENAL FUNCTION PANEL (12/08/2024 4:00 AM CDT) SODIUM 148(H) 136 - 145 mmol/L 12/08/2024 6:02 AM CDT [facility] LABORATORY [facility] POTASSIUM 4.6 3.5 - 5.1 mmol/L 12/08/2024 6:02 AM CDT [facility] LABORATORY [facility] CHLORIDE 106 98 - 107 mmol/L 12/08/2024 6:02 AM [facility] CO2 16(L) 22 - 29 mmol/L 12/08/2024 6:02 AM [facility] CALCIUM 9.5 8.6 - 10.0 mg/dL 12/08/2024 6:02 AM [facility] BUN 49(H) 6 - 20 mg/dL 12/08/2024 6:02 AM [facility] CREATININE 7.69(H) 0.67 - 1.17 mg/dL 12/08/2024 6:02 AM [facility] GLUCOSE 127(H) 74 - 99 mg/dL 12/08/2024 6:02 AM [facility] ALBUMIN 2.9(L) 3.5 - 5.2 g/dL 12/08/2024 6:02 AM [facility] PHOSPHORUS 11.4(H) 2.5 - 4.5 mg/dL 12/08/2024 6:02 AM [facility] GFR 9(L) >=60 mL/min/1. 73 sq meter 12/08/2024 6:02 AM [facility] Comment:eGFR calculated with 2020 CKD-EPI equation. Vegetarian diet, extremely high or low muscle mass, and may affect results. Cystatin C with Glomerular Filtration Rate is a suitable alternative for these patients. ANION GAP 26(H) 9 - 20 mmol/L 12/08/2024 6:02 AM [facility] Blood Collection / Unknown 12/08/2024 4:00 AM CDT 12/08/2024 5:29 AM CDT us External Provider [facility] CHEMISTRY ORDERABLES Final Result [facility] CLIA # [id number] [facility] [address] documented in this encounter Visit Diagnoses Not [...] documented as of this encounter Care Teams Clerical Support Relationship Specialty Start Date End Date Cc Jailyn, Physician Pc, MD PCP - General Family Practice 02/18/25 documented as of this encounter
--- OUTSIDE RECORDS SUMMARY | 2025-03-14 17:23 | XMS_ITS | Encounter Summary ---
Author Organization [facility] Address [address] [place] [address] Care Team Providers Care Environmental Emergencies Planner Name Role Phone Cc Amb, Physician Pc MD Primary Care Provider Un available Encounter Details Date Type Department Care Team (Late st Contact Info) Description 12/01/2024 Lab Requisition [facility] Laboratory Services [address] [place] [address] [place] [phone] [facility], External Provider [address] [place] [address] Social History Tobacco Use Types Packs/Day Years [...] often do you attend chur ch or spiritism services? More than 4 times per year 05/03/2021 Do you belong to any clubs o r organizations such as tenriism groups, unions, fraternal or athletic groups, or [...] any time in the past 12 m [facility], were you homeless or living in a fdc (including now)? No 05/03/2021 Feeling Safe Answer [...] on file Legal Sex Male 6:04 AM CLAY STRUCTURE BUILDER AND SERVICER Gender Identity Not on file Sexual Orientation Not on file documented as of this encounter Plan of Treatment Upcoming Encounters Date Type Department Care Team (Late st Contact Info) Description 03/22/2025 12:30 PM CLAY STRUCTURE BUILDER AND SERVICER Office Visit [facility] Physical Med and Rehab [facility] [address] [place] [phone] William Cardozo MD [address] [place] [phone] 03/23/2025 10:50 AM CLAY STRUCTURE BUILDER AND SERVICER Appointment [facility] Miriam Iniguez Laboratory Services [address] [place] [address] 03/30/2025 7:50 AM CLAY STRUCTURE BUILDER AND SERVICER Office Visit [facility] Cancer and Hematology [place] [address] [facility] 2 [place] [address] Jignesh Geiger NP [address] [place] [address] documented as of this encounter Procedures Procedure Name Priority Date/Time Associated Diagnosis Comments BASIC METABOLIC PANEL Stat 12/01/2024 4:05 AM CDT documented in this encounter Results * (ABNORMAL) BASIC METABOLIC PANEL (12/01/2024 4:05 AM CDT) SODIUM 140 136 - 145 mmol/L 12/01/2024 6:02 AM CDT [facility] LABORATORY [facility] POTASSIUM 5.3(H) 3.5 - 5.1 mmol/L 12/01/2024 6:02 AM CDT [facility] LABORATORY [facility] CHLORIDE 105 98 - 107 mmol/L 12/01/2024 6:02 AM [facility] CO2 23 22 - 29 mmol/L 12/01/2024 6:02 AM [facility] CALCIUM 8.6 8.6 - 10.0 mg/dL 12/01/2024 6:02 AM [facility] BUN 37(H) 6 - 20 mg/dL 12/01/2024 6:02 AM [facility] CREATININE 5.40(H) 0.67 - 1.17 mg/dL 12/01/2024 6:02 AM [facility] GLUCOSE 186(H) 74 - 99 mg/dL 12/01/2024 6:02 AM [facility] GFR 13(L) >=60 mL/min/1. 73 sq meter 12/01/2024 6:02 AM [facility] Comment:eGFR calculated with 2020 CKD-EPI equation. Vegetarian diet, extremely high or low muscle mass, and may affect results. Cystatin C with Glomerular Filtration Rate is a suitable alternative for these patients. ANION GAP 12 9 - 20 mmol/L 12/01/2024 6:02 AM [facility] Blood Collection / Unknown 12/01/2024 4:05 AM CDT 12/01/2024 5:15 AM CDT us External Provider [facility] CHEMISTRY ORDERABLES Final Result Performing Organization Address City/State/[facility] Co de Phone Number [facility] CLIA # [id number] [address] [place] [address] documented in this encounter Visit Diagnoses Not on filedocumented in this encounter Additional Health Concerns Infection Onset Date Last Indicated Resolved Time R/O C. diff 12/10/2024 12/10/2024 12/10/2024 9:47 PM CDT R/O GI Pathogen 12/10/2024 12/10/2024 12/10/2024 8 :34 PM CDT C Diff Comment:10/1/25: Patient continues to report symptoms of C. Diff and will need to remain in enteric contact isolation. Zohaib Angulo RN, Infection Prevention 12/10/2024 12/10/2024 02/08/2025 10:22 PM CDT MRSA 01/20/2025 01/20/2025 02/19/2025 10:2 1 PM CDT Assessment Noted Time PHQ-9 Depression Total Score: 2 01/10/20 24 3:01 PM CDT documented as of this encounter Care Teams Environmental Emergencies Planner Relationship Specialty Start Date End Date Cc Jailyn, Physician Pc, MD PCP - General Family Practice 02/18/25 documented as of this encounter
--- OUTSIDE RECORDS SUMMARY | 2025-03-14 17:23 | XMS_ITS | Encounter Summary ---
Author Organization [facility] Address [address] [place] [address] Care Team Providers Care Health Care Coordinator Name Role Phone Cc Amb, Physician Pc MD Primary Care Provider Un available Encounter Details Date Type Department Care Team (Late st Contact Info) Description 01/06/2021 Lab Requisition [facility] Laboratory Services [address] [address] [place] [address] [facility] [address] [place] [address] Social History Tobacco Use Types Packs/Day Years [...] declined 06/14/2020 How often do you attend confucianist or samaritan serv ices? Patient declined 06/14/2020 Do you [...] on file Legal Sex Male 6:04 AM PENSION CONSULTANT Gender Identity Not on file Sexual Orientation Not on file COVID-19 Exposure Response Date Recorded In the last month, have you been in contact with someone who was confirmed or suspected to have Coronavirus / COVID-19? No / Unsure 01/05/2021 12:50 AM CDT documented as of this encounter Plan of Treatment Upcoming Encounters Date Type Department Care Team (Late st Contact Info) Description 03/22/2025 12:30 PM PENSION CONSULTANT Office Visit [facility] Physical Med and Rehab [facility] [address] [phone] iWlliam Cardozo MD [address] [place] [address] 03/23/2025 10:50 AM PENSION CONSULTANT Appointment [facility] Laboratory Services [address] [place] [address] 03/30/2025 7:50 AM PENSION CONSULTANT Office Visit [facility] Cancer and Hematology [place] [address] [place] [address] Jignesh Geiger NP [address] [place] [address] documented as of this encounter Procedures Procedure Name Priority Date/Time Associated Diagnosis Comments SOURCE NEEDLESTICK PANEL Routine 01/05/2021 1:40 AM CDT EXPOSURE PANEL COMPLETION Routine 01/05/2021 1:40 AM CDT HIV DETECTION W/REFLX CONFIRMATION Routine 01/05/2021 1:40 AM CDT HEPATITIS C RNA PCR, QUANTITATIVE Routine 01/05/2021 1:40 AM CDT HEPATITIS B SURFACE ANTIGEN Routine 01/05/2021 1:40 AM CDT documented in this encounter Results * EXPOSURE PANEL COMPLETION (01/05/2021 1:40 AM CDT) EXPOSURE PANEL RECEIVED Yes 01/06/2021 10:02 AM CDT [facility] Blood Collection / Unknown 01/05/2021 1:40 AM CDT 01/06/2021 8:43 AM CDT us Ritesh Johnson MD CHEMISTRY ORDERABLES Final R esult [facility] CLIA # [id number] [address] [place] [address] * HEPATITIS B SURFACE ANTIGEN (01/05/2021 1:40 AM CDT) [facility] HEPATITIS B SURFACE AG NON-REACTI VE Non-react ford 01/06/2021 5:01 PM CDT [facility] Blood Collection / Unknown 01/05/2021 1:40 AM CDT 01/06/2021 8:43 AM CDT Ritesh Johnson MD CHEMISTRY ORDERABLES Final R esult Performing Organization Address [facility] Co de Phone Number [facility] CLIA # [id number] [address] [place] [address] * HEPATITIS C RNA PCR, QUANTITATIVE (01/05/2021 1:40 AM CDT) [facility] HEPATITIS C RNA PCR, QUANT Undetected Undetected IU/mL 01/09/2021 2:36 PM CDT [facility] Comment: Result in log IU/mL is Undetected. ADDITIONAL INFORMATION The quantification range of this assay is 15 to 100,000,000 IU/mL (1.18 log to 8.00 log IU/mL). Testing was performed using the marce HCV test ([employer] with the marce 6800 System. Test Performed by: [place] [address] Bill Of Materials Clerk: Jos Fink M.D. Ph.D.; CLIA# [id number] Blood Collection / Unknown 01/05/2021 1:40 AM CDT 01/06/2021 8:43 AM CDT Ritesh Johnson MD CHEMISTRY ORDERABLES Final R esult [facility] * HIV DETECTION W/REFLX CONFIRMATION (01/05/2021 1:40 AM CDT) HIV-1 AND 2 ABS AND HIV-1 AG Non-reacti ve Non-React ford 01/06/2021 4:33 PM CDT [facility] Blood Collection / Unknown 01/05/2021 1:40 AM CDT 01/06/2021 8:43 AM CDT us Ritesh Johnson MD CHEMISTRY ORDERABLES Final R esult Performing Organization Address City/[facility]/ZIP Co de Phone Number [facility] CLIA # [id number] [address] [address] [place] [address] documented in this encounter Visit Diagnoses Not on filedocumented in this encounter Additional Health Concerns Infection Onset Date Last Indicated Resolved Time COVID-19 01/18/2021 01/18/2021 02/07/2021 1:16 AM CDT R/O COVID-19 01/30/2022 01/30/2022 01/30/2022 6:48 PM CDT C Diff 01/30/2022 02/05/2022 04/06/2022 1:16 AM PENSION CONSULTANT R/O GI Pathogen 05/07/2023 05/07/2023 05/09/2023 3 :52 PM PENSION CONSULTANT R/O Respiratory 11/15/2024 11/15/2024 11/15/2024 1 [...] resolve the R/O Palmira auris flag. 11/20/2024 11/20/202411/23/2024 2:43 PM CDT R/O C. diff 12/10/2024 [...] documented as of this encounter Care Teams Health Care Coordinator Relationship Specialty Start Date End Date Sade Glaser, Physician Pc, MD PCP - General Family Practice 02/18/25 documented as of this encounter
--- OUTSIDE RECORDS SUMMARY | 2025-03-14 17:23 | XMS_ITS | Encounter Summary ---
Author Organization [facility] Address [address] [place] [address] Care Team Providers Care Electrical Installation Supervisor Name Role Phone Cc Amb, Physician Pc MD Primary Care Provider Un available Encounter Details Date Type Department Care Team (Late st Contact Info) Description 12/07/2024 Lab Requisition [facility] Laboratory Services [address] [place] [address] [place] [phone] [facility], External Provider [address] [place] [address] Social History Tobacco Use Types Packs/Day Years [...] often do you attend chur ch or yarsanism services? 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 Gender Identity Not on file Sexual Orientation Not on file documented as of this encounter Plan of Treatment Upcoming Encounters Date Type Department Care Team (Late st Contact Info) Description 03/22/2025 12:30 PM HARDWOOD FLOORING SPECIALIST Office Visit [facility] Physical Med and Rehab [facility] [address] [place] [phone] William Cardozo MD [address] [place] [phone] 03/23/2025 10:50 AM HARDWOOD FLOORING SPECIALIST Appointment [facility] Miriam Iniguez Laboratory Services [address] [place] [address] 03/30/2025 7:50 AM HARDWOOD FLOORING SPECIALIST Office Visit [facility] Cancer and Hematology [place] [address] [place] [address] Jignesh Geiger NP [address] [place] [phone] documented as of this encounter Procedures Procedure Name Priority Date/Time Associated Diagnosis Comments EXTRA TUBE (LAV) Routine 12/07/2024 7:15 PM CDT LACTIC ACID Stat 12/07/2024 7:15 PM CDT COMPREHENSIVE METABOLIC PANEL Routine 12/07/2024 7:15 PM CDT documented in this encounter Results * EXTRA TUBE (LAV) (12/07/2024 7:15 PM CDT) Blood Collection / Unknown 12/07/2024 7:15 PM CDT 12/07/2024 7:39 PM CDT External Provider [facility] HEMATOLOGY ORDERABLES [place] l Result [facility] CLIA # [id number] [facility] [address] [address] * LACTIC ACID (12/07/2024 7:15 PM CDT) LACTIC ACID 1.0 <=2.0 mmol/L 12/07/2024 7:[address] [facility] Blood Collection / Unknown 12/07/2024 7:15 PM CDT 12/07/2024 7:38 PM CDT External Provider [facility] CHEMISTRY ORDERABLES Final Result Performing Organization Address City/[facility]/ZIP Co de Phone Number [facility] CLIA # [id number] [address] [place] [address] * (ABNORMAL) COMPREHENSIVE METABOLIC PANEL (12/07/2024 7:15 PM CDT) SODIUM 152(H) 136 - 145 mmol/L 12/07/2024 8:[address] [facility] POTASSIUM 4.2 3.5 - 5.1 mmol/L 12/07/2024 8:[address] [facility] CHLORIDE 110(H) 98 - 107 mmol/L 12/07/2024 8:[address] [facility] CO2 16(L) 22 - 29 mmol/L 12/07/2024 8:[address] [facility] CALCIUM 8.6 8.6 - 10.0 mg/dL 12/07/2024 8:[address] [facility] BUN 43(H) 6 - 20 mg/dL 12/07/2024 8:[address] [facility] CREATININE 6.59(H) 0.67 - 1.17 mg/dL 12/07/2024 8:[address] [facility] GLUCOSE 141(H) 74 - 99 mg/dL 12/07/2024 8:[address] [facility] TOTAL PROTEIN 6.7 6.4 - 8.3 g/dL 12/07/2024 8:26 PM [facility] ALBUMIN 2.4(L) 3.5 - 5.2 g/dL 12/07/2024 8:26 PM [facility] BILIRUBIN TOTAL 0.5 0.0 - 1.0 mg/dL 12/07/2024 8:26 PM [facility] ALKALINE PHOSPHATASE 220(H) 40 - 129 U/L 12/07/2024 8:26 PM [facility] AST 21 10 - 50 U/L 12/07/2024 8:26 PM [facility] ALT <5 <=50 U/L 12/07/2024 8:26 PM [facility] GFR 11(L) >=60 mL/min/1. 73 sq meter 12/07/2024 8:26 PM [facility] Comment:eGFR calculated with 2020 CKD-EPI equation. Vegetarian diet, extremely high or low muscle mass, and may affect results. Cystatin C with Glomerular Filtration Rate is a suitable alternative for these patients. ANION GAP 26(H) 9 - 20 mmol/L 12/07/2024 8:26 PM [facility] Blood Collection / Unknown 12/07/2024 7:15 PM CDT 12/07/2024 7:39 PM CDT us External Provider [facility] CHEMISTRY ORDERABLES Final Result [facility] CLIA # [id number] [address] [address] documented in this encounter Visit Diagnoses Not [...] documented as of this encounter Care Teams Electrical Installation Supervisor Relationship Specialty Start Date End Date Cc Jailyn, Physician Pc, MD PCP - General Family Practice 02/18/25 documented as of this encounter
--- OUTSIDE RECORDS SUMMARY | 2025-03-14 17:23 | XMS_ITS | Encounter Summary ---
Author Organization [facility] Address [address] [place] [address] Care Team Providers Care Driver/Guide Name Role Phone Cc Amb, Physician Pc MD Primary Care Provider Un available Encounter Details Date Type Department Care Team (Late st Contact Info) Description 11/30/2024 Lab Requisition [facility] Laboratory Services [address] [place] [phone] Hector Coronado MD [address] [place] [address] [address] [place] [address] Social History Tobacco Use Types [...] often do you attend chur ch or yazdanism services? More than 4 times per year 05/03/2021 Do you belong to any clubs o r organizations such as anabaptist groups, unions, fraternal or athletic groups, or [...] any time in the past 12 m [facility], were you homeless or living in [...] on file Legal Sex Male 6:04 AM NURSERY LABORER Gender Identity Not on file Sexual Orientation Not on file documented as of this encounter Plan of Treatment Upcoming Encounters Date Type Department Care Team (Late st Contact Info) Description 03/22/2025 12:30 PM NURSERY LABORER Office Visit [facility] Physical Med and Rehab [facility] [address] [place] [address] William Cardozo MD [address] [place] [address] 03/23/2025 10:50 AM NURSERY LABORER Appointment [facility] Miriam Grijalvailly Laboratory Services [address] [place] [address] 03/30/2025 7:50 AM NURSERY LABORER Office Visit [facility] Cancer and Hematology [place] [address] [address] [place] [address] Jignesh Geiger NP [address] [place] [address] documented as of this encounter Procedures Procedure Name Priority Date/Time Associated Diagnosis Comments CBC WITH DIFFERENTIAL Routine 11/30/2024 3:25 AM CDT PHOSPHORUS Routine 11/30/2024 3:25 AM CDT COMPREHENSIVE METABOLIC PANEL Routine 11/30/2024 3:25 AM CDT documented in this encounter Results * (ABNORMAL) CBC WITH DIFFERENTIAL (11/30/2024 3:25 AM CDT) WBC 7.1 4.5 - 11.0 K/uL 11/30/2024 6:05 AM [facility] RBC 2.69(L) 4.60 - 6.20 M/uL 11/30/2024 6:05 AM [facility] HEMOGLOBIN 8.4(L) 14.0 - 18.0 g/dL 11/30/2024 6:05 AM [facility] HEMATOCRIT 27.2(L) 41.0 - 53.0 % 11/30/2024 6:05 AM [facility] MCV 101.1 84.0 - 103.0 fL 11/30/2024 6:05 AM [facility] MCH 31.2 27.0 - 34.0 pg 11/30/2024 6:05 AM [facility] MCHC 30.9 30.0 - 35.0 g/dL 11/30/2024 6:05 AM [facility] PLATELETS 195 140 - 440 K/uL 11/30/2024 6:05 AM [facility] MPV 9.6 8.9 - 12.8 fL 11/30/2024 6:05 AM [facility] RDW 15.0(H) 11.0 - 14.5 % 11/30/2024 6:05 AM [facility] RDW-STDEV 54.6(H) 37.0 - 54.0 fL 11/30/2024 6:05 AM [facility] NEUTROPHILS 57 42 - 75 % 11/30/2024 6:05 AM [facility] LYMPHOCYTES 17(L) 24 - 44 % 11/30/2024 6:05 AM [facility] MONOCYTES 6 2 - 10 % 11/30/2024 6:05 AM [facility] EOSINOPHILS 18(H) 0 - 7 % 11/30/2024 6:05 AM [facility] BASOPHILS 1 0 - 1 % 11/30/2024 6:05 AM [facility] IMMATURE GRANULOCYTES 1 0 - 2 % 11/30/2024:05 AM CDT [facility] NEUTROPHIL ABSOLUTE 4.05 2.00 - 8.00 K/uL 11/30/2024 6:05 AM CDT [facility] LYMPHOCYTE ABSOLUTE 1.20 1.20 - 4.00 K/uL 11/30/2024 6:05 AM CDT [facility] MONOCYTE ABSOLUTE 0.40 0.10 - 0.60 K/uL 11/30/2024 6:05 AM CDT [facility] EOSINOPHIL ABSOLUTE 1.28(H) 0.00 - 0.70 K/uL 11/30/2024 6:05 AM CDT [facility] BASOPHILS ABSOLUTE 0.10 0.00 - 0.20 K/uL 11/30/2024 6:05 AM CDT [facility] IMMATURE GRANULOCYTES ABSOLUTE 0.04 0.00 - 0.10 K/uL 11/30/2024 6:05 AM [facility] SMEAR REVIEWED: NA - Not Applicable 11/30/2024 6:05 AM T [facility] Blood Collection / Unknown 11/30/2024 3:25 AM CDT 11/30/2024 5:56 AM CDT Hector Coronado MD HEMATOLOGY ORDERABLES Final Result [facility] # [id number] [address] [place] [id number] * (ABNORMAL) PHOSPHORUS (11/30/2024 3:25 AM CDT) Pathologist [facility] PHOSPHORUS 8.3(H) 2.5 - 4.5 mg/dL 11/30/2024 7:04 AM CDT [facility] Blood Collection / Unknown 11/30/2024 3:25 AM CDT 11/30/2024 5:57 AM CDT Hector Coronado MD CHEMISTRY ORDERABLES Final R esult [facility] CLIA # [id number] [facility] [address] [place] [address] * (ABNORMAL) COMPREHENSIVE METABOLIC PANEL (11/30/2024 3:25 AM CDT) SODIUM 140 136 - 145 mmol/L 11/30/2024 7:04 AM [facility] POTASSIUM 6.5(HH) 3.5 - 5.1 mmol/L 11/30/2024 7:04 AM [facility] CHLORIDE 106 98 - 107 mmol/L 11/30/2024 7:04 AM [facility] CO2 16(L) 22 - 29 mmol/L 11/30/2024 7:04 AM [facility] CALCIUM 9.3 8.6 - 10.0 mg/dL 11/30/2024 7:04 AM [facility] BUN 57(H) 6 - 20 mg/dL 11/30/2024 7:04 AM [facility] CREATININE 7.37(H) 0.67 - 1.17 mg/dL 11/30/2024 7:04 AM [facility] GLUCOSE 162(H) 74 - 99 mg/dL 11/30/2024 7:04 AM [facility] TOTAL PROTEIN 7.2 6.4 - 8.3 g/dL 11/30/2024 7:04 AM [facility] ALBUMIN 3.0(L) 3.5 - 5.2 g/dL 11/30/2024 7:04 AM [facility] BILIRUBIN TOTAL 0.6 0.0 - 1.0 mg/dL 11/30/2024 7:04 AM [facility] ALKALINE PHOSPHATASE 212(H) 40 - 129 U/L 11/30/2024 7:04 AM [facility] AST 21 10 - 50 U/L 11/30/2024 7:04 AM [facility] ALT <5 <=50 U/L 11/30/2024 7:04 AM CDT [facility] GFR 9(L) >=60 mL/min/1. 73 sq meter 11/30/2024 7:04 AM CDT [facility] Comment:eGFR calculated with 2020 CKD-EPI equation. Vegetarian diet, extremely high or low muscle mass, and may affect results. Cystatin C with Glomerular Filtration Rate is a suitable alternative for these patients. ANION GAP 18 9 - 20 mmol/L 11/30/2024 7:04 AM CDT [facility] Blood Collection / Unknown 11/30/2024 3:25 AM CDT 11/30/2024 5:57 AM CDT us Hector Coronado MD CHEMISTRY ORDERABLES Final R esult [facility] CLIA # [id number] [address] [place] [id number] documented in this encounter Visit Diagnoses Not [...] documented as of this encounter Care Teams Driver/Guide Relationship Specialty Start Date End Date Cc Amb, Physician Pc, MD PCP - General Family Practice 02/18/25 documented as of this encounter
--- OUTSIDE RECORDS SUMMARY | 2025-03-14 17:23 | XMS_ITS | Encounter Summary ---
Author Organization [facility] Address [address] [place] [address] Care Team Providers Care Front End Loader Operator Name Role Phone Cc Amb, Physician Pc MD Primary Care Provider Un available Encounter Details Date Type Department Care Team (Late st Contact Info) Description 12/09/2024 Lab Requisition [facility] Laboratory Services [address] [place] [phone] [facility], External Provider [address] [place] [address] Social History Tobacco Use Types Packs/Day Years [...] often do you attend chur ch or confucianism services? More than 4 times per year [...] time in the past [address] [facility], were you homeless or living in a senior care (including now)? No 05/03/2021 Feeling Safe Answer [...] on file Legal Sex Male 6:04 AM SPRING BENDER Gender Identity Not on file Sexual Orientation Not on file documented as of this encounter Plan of Treatment Upcoming Encounters Date Type Department Care Team (Late st Contact Info) Description 03/22/2025 12:30 PM SPRING BENDER Office Visit [facility] Physical Med and Rehab [facility] [address] [place] [address] William Cardozo MD [address] [place] [address] 03/23/2025 10:50 AM SPRING BENDER Appointment [facility] Miriam Iniguez Laboratory Services [address] [place] [address] 03/30/2025 7:50 AM SPRING BENDER Office Visit [facility] Cancer and Hematology [place] [address] [place] [address] Jignesh Geiger NP [address] [place] [address] documented as of this encounter Procedures Procedure Name Priority Date/Time Associated Diagnosis Comments CBC WITH DIFFERENTIAL Routine 12/09/2024 7:40 AM CDT documented in this encounter Results * (ABNORMAL) CBC WITH DIFFERENTIAL (12/09/2024 7:40 AM CDT) WBC 4.3(L) 4.5 - 11.0 K/uL 12/09/2024 8:09 AM CDT [facility] NRBCS 1(H) <1 % 12/09/2024 8:09 AM CDT [facility] RBC 2.45(L) 4.60 - 6.20 M/uL 12/09/2024 8:09 AM [facility] HEMOGLOBIN 7.8(L) 14.0 - 18.0 g/dL 12/09/2024 8:09 AM [facility] HEMATOCRIT 24.8(L) 41.0 - 53.0 % 12/09/2024 8:09 AM [facility] MCV 101.2 84.0 - 103.0 fL 12/09/2024 8:09 AM [facility] MCH 31.8 27.0 - 34.0 pg 12/09/2024 8:09 AM [facility] MCHC 31.5 30.0 - 35.0 g/dL 12/09/2024 8:09 AM [facility] PLATELETS 56(L) 140 - 440 K/uL 12/09/2024 8:09 AM [facility] MPV 10.4 8.9 - 12.8 fL 12/09/2024 8:09 AM [facility] RDW 16.2(H) 11.0 - 14.5 % 12/09/2024 8:09 AM [facility] RDW-STDEV 59.8(H) 37.0 - 54.0 fL 12/09/2024 8:09 AM [facility] NEUTROPHILS 43 42 - 75 % 12/09/2024 8:09 AM [facility] LYMPHOCYTES 19(L) 24 - 44 % 12/09/2024 8:09 AM [facility] MONOCYTES 12(H) 2 - 10 % 12/09/2024 8:09 AM [facility] EOSINOPHILS 25(H) 0 - 7 % 12/09/2024 8:09 AM [facility] BASOPHILS 1 0 - 1 % 12/09/2024 8:09 AM [facility] IMMATURE GRANULOCYTES 1 0 - 2 % 12/09/2024 8:09 AM [facility] NEUTROPHIL ABSOLUTE 1.82(L) 2.00 - 8.00 K/uL 12/09/2024 8:09 AM CDT [facility] LYMPHOCYTE ABSOLUTE 0.80(L) 1.20 - 4.00 K/uL 12/09/2024 8:09 AM CDT [facility] MONOCYTE ABSOLUTE 0.52 0.10 - 0.60 K/uL 12/09/2024 8:09 AM CDT [facility] EOSINOPHIL ABSOLUTE 1.05(H) 0.00 - 0.70 K/uL 12/09/2024 8:09 AM CDT [facility] BASOPHILS ABSOLUTE 0.03 0.00 - 0.20 K/uL 12/09/2024 8:09 AM CDT [facility] IMMATURE GRANULOCYTES ABSOLUTE 0.04 0.00 - 0.10 K/uL 12/09/2024 8:09 AM T [facility] SMEAR REVIEWED: NA - Not Applicable 12/09/2024 8:09 AM T [facility] Blood Collection / Unknown 12/09/2024 7:40 AM CDT 12/09/2024 8:00 AM CDT External Provider [facility] HEMATOLOGY ORDERABLES [place] Result Performing Organization Address [facility]/State/[facility] Co de Phone Number [facility] CLIA # [id number] [address] [place] [id number] documented in this encounter Visit Diagnoses Not [...] documented as of this encounter Care Teams Front End Loader Operator Relationship Specialty Start Date End Date Cc Jailyn, Physician Pc, MD PCP - General Family Practice 02/18/25 documented as of this encounter
--- OUTSIDE RECORDS SUMMARY | 2025-03-14 17:23 | XMS_ITS | Clinical Summary ---
Author Organization [facility] Address [address] [place] [address] Care Team Providers Care Motor Installer Name Role Phone Cc Amb, Physician Pc MD Primary Care Provider Un available Allergies Active Allergy Reactions Criticality Noted Date Comments Hymenoptera Allergenic Extract Swelling Low 09/27 Mushroom Swelling Low 05/03/2021 Unclassified Drug Swelling Low 09/27/2014 Vancomycin Rash,Hives High 07/21/2018 Venom-Wasp Swelling Low 09/27/2014 Medications venlafaxine 75 mg tablet Take 75 mg by mouth daily. Active Blood-Glucose Meter Check glucoses bid. 1 Each 0 6 Active Additional Information Patient not taking.Reported on 03/06/2024 blood sugar diagnostic Strip Check glucoses bid. 100 Each 5 6 Active blood sugar diagnostic Strip GLUCOMETER #1 STRIPS LANCETS CHECK BS BID #100 E10.42 DJ. 100 Package 0 6 Active lancets 30 gauge 1 Each [place] [facility]Non-Drug; Combo Route) route 2 times daily. 100 Each 5 6 Active levothyroxine 75 mcg tablet Take 75 mcg by mouth daily. Active lanthanum (FOSRENOL) 1,000 mg Tablet, Chewable Take 1,000 mg by mouth 3 times daily with meals. Active midodrine (PROAMATINE) 5 mg tablet Take 5 mg by mouth every Saturday, and Saturday. 3 Active BD AutoShield Duo Pen Needle 30 gauge x 3/16 Needle 1 Each by subcutaneous (via wearable injector) route 4 times daily. 4 Active scopolamine (TRANSDERM-SCO P) 1 mg/72 hr patch Apply 1 Patch to affected area every third day. 2 Active ondansetron (ZOFRAN) 4 mg Tablet Take 4 mg by mouth. Active tiZANidine (ZANAFLEX) 4 mg Tablet Take 1 Tablet (4 mg) by mouth every 12 hours as needed for Spasm. 60 Tablet 1 4 Active Basaglar KwikPen U-100 Insulin 100 unit/mL (3 mL) pen syringe Inject 3 mL by subcutaneous injection one time only. 4 Active insulin aspart, niacinamide, (Fiasp FlexTouch U-100 Insulin) 100 unit/mL (3 mL) Insulin Pen Sliding scale before each meal and bedtime: blood sugar under 200-2 units, 201-250 3 units, 251-300 5 units, 301-350 7 units, over 351 10 units. 30 mL 11 4 Active traZODone (DESYREL) 100 mg tablet take 1 tablet by mouth at bedtime 90 Tablet 1 4 Active Blood-Glucose Sensor (The Gluten Free [employer] G7 Sensor) DeviceIndicati ons:Type 1 diabetes mellitus with stage 4 chronic kidney disease GFR 15-29 ([facility]/HCC) 1 Each by subcutaneous (via wearable injector) route every 10 days. 9 Each 3 4 Active tacrolimus (PROTOPIC) 0.1 % OintmentIndica tions:Apply to bilateral hands as needed Apply to affected area 2 times daily as needed for Other (See Comment) (Psoriasis). 5 Active levETIRAcetam (KEPPRA) 1,000 mg tablet Take 1 Tablet (1,000 mg) by mouth 2 times daily. 60 Tablet 1 5 Active aspirin (ECOTRIN EC) 81 mg Tablet, Delayed Release (E.C.) Take 1 Tablet (81 mg) by mouth daily. 30 Tablet 1 5 Active ferrous sulfate 325 mg (65 mg iron) tablet Take 1 Tablet (325 mg) by mouth daily. 30 Tablet 5 Active sevelamer carbonate (RENVELA) 800 mg Tablet Take 3 Tablets (2,400 mg) by mouth 3 times daily with meals. 270 Tablet Active DAPTOmycin (CUBICIN) 335 mg for home infusion 1 Dose by See Admin Instructions route continuously for 25 days daptomycin IV at dialysis this is 340 mg twice a week + 500 mg on the intradialytic day until 02/28.. 1 Dose 5 025 fidaxomicin (DIFICID) 200 mg Tablet Take 1 Tablet (200 mg) by mouth 2 times daily. 64 Tablet 5 025 Active Problems Problem Noted Date Diagnosed Date S/P bilateral BKA (below knee amputation) 2024 S/P biopsy 02/02/2025 Axillary lymphadenopathy 02/01/2025 Splenomegaly 01/29/2025 Lymphadenopathy 01/29/2025 MRSA bacteremia 01/27/2025 Polypharmacy 01/20/2025 Lethargy 01/20/2025 S/P AKA (above knee amputation) bilateral 2024 Pressure injury of left heel, unstageable 2024 Pressure injury of right heel, unstageable 01/15 PAD (peripheral artery disease) 01/15/2025 Osteomyelitis of both feet 01/15/2025 Osteomyelitis of ankle 01/15/2025 Acute deep vein thrombosis ( DVT) of brachial vein of right upper extremity 12/16/2024 Coagulopathy 12/16/2024 Generalized lymphadenopathy 12/16/2024 Tricuspid regurgitation 12/15/2024 ESRD (end stage renal disease) on dialysis 12/10 Anemia, chronic disease 12/10/2024 Hypovolemic shock 12/10/2024 History of seizure 12/10/2024 MSSA bacteremia 12/10/2024 Hypernatremia 11/18/2024 Infection of arteriovenous fistula 11/18/2024 Abnormal finding on GI tract imaging 11/17/2024 Bacteremia 11/17/2024 Noncompliance with medication regimen 11/17/2024 Staphylococcus aureus bacteremia 11/17/2024 Shock liver 11/16/2024 Psoriasis 11/16/2024 Bacteremia due to Gram-positive bacteria 025 Acute metabolic encephalopathy 11/15/2024 Hypotension 11/15/2024 Transaminitis 11/15/2024 Seizure disorder 11/15/2024 Elevated LFTs 11/15/2024 Drug-induced liver injury 11/15/2024 Confusion 11/15/2024 ESRD (end stage renal disease) 11/15/2024 Severe sepsis with septic shock 11/15/2024 Starvation ketoacidosis 11/15/2024 Acute respiratory failure with hypoxia Anemia of renal disease 11/15/2024 Wounds, multiple 11/15/2024 History of seizure disorder 11/15/2024 Xerosis of skin 09/24/2023 Fissures in skin of both feet 09/24/2023 Acute colitis 05/08/2023 Inguinal lymphadenopathy 05/07/2023 Nausea vomiting and diarrhea 05/07/2023 Anxiety 09/14/2022 End-stage renal disease on hemodialysis 09/15/19 23 S/P exploratory laparotomy 02/07/2022 Hypertensive kidney disease with CKD (chronic kidney disease) stage V 02/05/2022 Type 1 diabetes mellitus wit h diabetic autonomic (poly)neuropathy 02/05/2022 Acquired absence of left great toe 02/05/2022 Iron deficiency anemia, unspecified 02/05/2022 Asthma 02/05/2022 Coagulation defect, unspecified 02/05/2022 Malrotation colon 02/01/2022 Anemia of chronic disease 02/01/2022 Type 1 diabetes mellitus wit h stage 4 chronic kidney disease GFR 15-29 02/01/2022 Abdominal pain 02/01/2022 Chest pain 02/01/2022 Intraabdominal mass 02/01/2022 Internal hernia 02/01/2022 Tachycardia 02/01/2022 Anemia due to stage 4 chronic kidney disease 09/2021 Depression 04/25/2021 Debility 02/16/2021 Renal Failure on Hemodialysis 02/16/2021 Moderate protein malnutrition 02/16/2021 Uses feeding tube 02/16/2021 Proteinuria 01/20/2021 Diabetic nephropathy 01/20/2021 Tonic-clonic generalized seizure 01/18/2021 Other shock 01/18/2021 Type 1 diabetes mellitus with Gastroperesis 12/22 Metabolic acidosis, increased anion gap (IAG) Hypertension 07/13/2020 Uncontrolled type 1 diabetes mellitus with hyperosmolarity without coma 06/19/2020 Chronic kidney disease (CKD) stage G3b/A1, moderately decreased glomerular filtration rate (GFR) between 30-44 mL/min/1.73 square meter and albuminuria creatinine ratio less than 30 mg/g 02/09/2019 Type 1 diabetes mellitus with chronic kidney dis ease 11/26/2018 Elevated BP without diagnosis of hypertension Dehydration 09/10/2017 Anorexia 09/10/2017 Diabetic gastroparesis 09/05/2017 Non compliance with medical treatment 09/02/2017 Elevated blood ketone body level 05/18/2017 Epigastric abdominal pain 03/03/2017 Dysuria 03/03/2017 Congenital malrotation 10/28/2015 Nausea and vomiting in adult 10/27/2015 Type 1 diabetes mellitus with hyperglycemia 02/20 Microalbuminuria due to type 1 diabetes mellitus 01/31/2015 Dependence on renal dialysis 04/22/2000 Type 1 diabetes mellitus with foot ulcer and terrance grene Resolved Problems Problem Noted Date Diagnosed Date Resolved Date Abnormal CT of the abdomen 05/07/2023 0 08/31/2023 Intra-abdominal infection 02/02/2022 Clostridioides difficile infection 02/02/2022 10/28/2023 Pneumonia of both lower lobe s due to infectious organism 02/01/2022 10/28/2023 Thrombocytopenia 02/01/2022 08/31/2023 DKA (diabetic ketoacidosis) 04/24/2021 08/31/2023 Metabolic Encephalopathy d/t Diabetic Ketoacidodis and COVID Pneumonia 02/16/2021 024 Sepsis 01/25/2021 08/31/2023 ATN (acute tubular necrosis) 01/20/2021 08/31/2023 Acute metabolic encephalopathy 01/18/2021 10/28/2023 Acute respiratory failure with hypoxia 01/18/2021 08/31/2023 COVID-19 virus detected 01/18/202108/20 Acute renal failure 01/18/2021 08/31/19 Lactic acidosis 01/18/2021 10/28/2023 High anion gap metabolic acidosis 01/18/2021 10/28/2023 Acute kidney injury superimp osed on chronic kidney disease 07/13/2020 08/31/2023 Acute prerenal azotemia 07/13/2020 07/0 11/2023 Septic thrombophlebitis 06/24/2020 07/0 11/2023 Acute renal failure superimp osed on stage 3b chronic kidney disease 06/19/2020 08/31/2023 Cellulitis of right forearm 06/19/2020 10/28/2023 Hypokalemia due to excessive gastrointestinal loss of potassium 05/10/2020 06/10/2020 C. difficile colitis 05/10/2020 024 SCOT (acute kidney injury) 04/04/2020 Hypomagnesemia 04/04/2020 06/10/2020 Hypophosphatemia 04/04/2020 06/10/2020 Acute superficial gastritis without hemorrhage 09/05/2017 06/10/2020 Cellulitis of toe of left foot 09/02/2017 10/28/2023 Acute gastritis without hemorrhage 07/09/2017 06/10/2020 SCOT (acute kidney injury) 07/09/2017 Hyponatremia 05/18/2017 06/10/2020 Elevated troponin 01/09/2017 08/31/2023 Hypokalemia 10/14/2016 06/10/2020 Type 1 diabetes mellitus wit h hyperosmolarity without nonketotic hyperglycemic hyperosmolar coma 08/08/2016 08/31/2023 Poorly controlled type 1 diabetes mellitus 08/08/2016 08/31/2023 Hypomagnesemia 05/12/2015 06/10/2020 Febrile illness, acute 05/12/201505/19 Hypophosphatemia 05/12/2015 06/10/2020 Viral gastroenteritis 05/12/20152023 Diabetic ketoacidosis withou t coma associated with type 1 diabetes mellitus 05/11/2015 08/31/2023 Closed fracture of malleolus of right ankle 05/05/2015 10/28/2023 Closed nondisplaced fracture of lateral malleolus of right fibula 05/03/2015 10/28/2023 Elevated serum creatinine 01/31/2015 Influenza A infection 04/23/20132023 CAP (community acquired pneumonia) 04/22/2013 10/20/2015 Severe recurrent major depre ssion without psychotic features 08/31/2023 Encounters Date Type Department Care Team Description 03/11/2025 Abstract [facility] [address] [facility] [address] [place] [phone] Kelle Mason DNP 03/11/2025 Orders Only [facility] Health Information Management [facility] [address] [place] [address] Provider, Abstract 03/10/2025 Orders Only [facility] Cancer and Hematology [place] [address] [facility] [address] [place] [phone] Lola Skaggs Low serum copper level (Primary Dx) 03/03/2025 Orders Only [facility] [place] [address] [facility] [address] [place] [phone] Jessie Orozco MD Low serum copper level (Primary Dx) 02/24/2025 9:00 AM PALLET RECTIFIER Office Visit [facility] General and Trauma Surgery[address] [place] [phone] Alicia Manzanares NP Postoperative follow-up (Primary Dx) 02/24/2025 Telephone [facility] Tra[facility] Surgery[address] [place] [phone] Alicia Manzanares NP Video visit request. 02/23/2025 2:15 PM PALLET RECTIFIER Video Visit [facility] Infectious Disease[address] [phone] Kelle Mason DNP End-stage renal disease on hemodialysis (CMS/HCC) (Primary Dx); At risk for Clostridioides difficile infection; Receiving intravenous antibiotic treatment as outpatient; Bacteremia; Pneumonia due to infectious organism, unspecified laterality, unspecified part of lung; Encounter for medication management 02/23/2025 Telephone [facility] [place] [address] [place] [phone] Kelle Mason DNP IVABX labs & med list 02/17/2025 External Device Data [facility] ABSTRACTION Provider, Abstract 02/17/2025 Telephone [facility] Infectious Disease[address] [phone] Kelle Mason DNP IV ABX- results to ck/crp 02/16/2025 2:00 PM CDT Video Visit [facility] Disease[address] [phone] Kelle Mason DNP End-stage renal disease on hemodialysis ([facility]) (Primary Dx); Receiving intravenous antibiotic treatment as outpatient; Encounter for medication management; At risk for Clostridioides difficile infection; Bacteremia 02/16/2025 External Device Data STL ABSTRACTION Provider, Abstract 02/16/[address] [phone] Kelle Mason DNP IV ABX- add CK/CRP 02/16/2025 Telephone [facility] Disease[address] [phone] Kelle Mason DNP IV ABX- changed SNF's 02/09/2025 1:30 PM CDT Video Visit [address] [phone] Kelle Mason DNP End-stage renal disease on hemodialysis ([facility]) (Primary Dx); Bacteremia; Receiving intravenous antibiotic treatment as outpatient; Encounter for medication management; At risk for Clostridioides difficile infection 02/09/2025 Telephone [facility] Disease[address] [phone] Kelle Mason DNP IV ABX- lab results/med list 02/08/2025 Telephone [facility] Disease[address] [phone] Kelle Mason DNP IV ABX- f/u Appts 02/05/2025 Telephone [facility] Infectious Disease[address] [phone] Karl Staples MD IV ABX- coordinate care 02/04/2025 12:20 AM CDT - 02/04/2025 11:59 PM CDT Hospital Encounter [facility] Emergency Medical Services [facility] [address] [place] [address] Angelica Gomez MD Ambulance, [facility] Discharge Disposition: Intermediate Care Facility 02/04/2025 Telephone [facility] Infectious Disease[address] [phone] Karl Staples MD IV ABX- OPAT appts 02/01/2025 7:10 AM CDT - 02/01/2025 8:23 AM CDT Surgery [facility] Operating Room [address] [place] [phone] Chidi Escoto DO AXILLARY LYMPH NODE DISSECTION 02/01/2025 7:00 AM CDT Anesthesia Event [facility] Operating Room [address] [place] [phone] Wolf Britt MD Sabini, Margaret M, HOUSE SERVANT 01/26/2025 External Device Data [facility] ABSTRACTION Provider, Abstract 01/26/2025 Hospital Encounter [facility] Services [address] [place] [phone] Cipriano Martinez MD 01/19/2025 7:42 AM CDT Anesthesia Event [facility] Operating Room [address] [place] [phone] Sandy Healy MD Meyer, Kiersten Ann (Student), RN 01/19/2025 7:20 AM CDT - 01/19/2025 11:07 AM CDT Surgery [facility] Operating Room [address] [place] [phone] Yumiko Shepard MD LEG AMPUTATION ABOVE KNEE 01/19/2025 External Device Data [facility] ABSTRACTION Provider, Abstract 01/12/2025 2:12 PM CDT - 02/04/2025 5:25 PM CDT Hospital Encounter [address] Medical [address] [place] [address] Rosario Leon MD Ellis, MD Cliff Oakley, MD Diann Borjas Craig, DO Nemargommula, MD Shama Zendejas, MD Bonnie Silverman Christina, MD Kakakhel, MD Angelica Chest pain Discharge Disposition: Fdc Fac(SNF) with Medicare Certification in Anticipation of Skilled Care 01/12/2025 - 01/12/2025 11:59 PM CDT Hospital Encounter [facility] Emergency Medical [facility] [address] [facility] [address] [place] [phone] Ambulance, [facility] Discharge Disposition: Short [facility] 01/12/2025 Travel 01/11/2025 10:30 AM CDT Video Visit [facility] [address] [place] [phone] Kelle Mason, CHACHO End-stage renal disease on hemodialysis ([facility]) (Primary Dx); Pneumonia due to infectious organism, unspecified laterality, unspecified part of lung; Bacteremia 01/09/2025 Results Follow-Up [facility] Emergency Department [address] [place] [phone] Thi Marion RN BLOOD CULTURE, BLOOD CULTURE 01/08/2025 10:40 AM CDT - 01/08/2025 11:59 PM CDT Hospital Encounter [facility] Emergency [facility] [address] [place] [address] Andrew Cowart MD Ambulance, [facility] Discharge Disposition: Intermediate Care Facility 01/07/2025 5:22 PM CDT - 01/08/2025 11:54 AM CDT Emergency [facility] Emergency Department [address] [place] [phone] Andrew Cowart MD Weakness (Primary Dx); History of end stage renal disease; Hx of type 1 diabetes mellitus; Hx of anemia of chronic renal failure Discharge Disposition: Home or Self Care 01/07/2025 Travel 01/06/2025 External Device Data [place] ABSTRACTION Provider, Abstract 01/01/2025 Transcribe Orders [facility] Centralized Scheduling [facility] CALL TO MAKE APPOINTMENT ONLY [address] [place] [address] Bakari Soriano MD Weak pulse (Primary Dx); Venous ulcers of both lower extremities (CMS/HCC) 12/25/2024 Telephone [facility] [address] [place] [address] Kelle Mason, DNP appt 12/25/2024 Abstract [facility] HIM [address] [place] [address] Provider, Abstract 12/25/2024 Chart Note [facility] Cancer and Hematology [place] [address] [place] [address] Jessie Orozco MD 12/10/2024 11:23 AM CDT - 12/24/2024 6:23 PM CDT Hospital Encounter [facility] 7[address] Medical Surgical [address] [place] [address] Chau Vale DO Anand, Neesha, MD Lohia, MD Facundo Cerda, MD Ludivina Coughlin Madhavi, MD Nerella, Ravi V., MD Suthar, Fabricio Hilario MD Severe sepsis with septic shock (CMS/HCC) Discharge Disposition: Fdc Fac(SNF) with Medicare Certification in Anticipation of Skilled Care from Last 3 Months Immunizations Immunization Administration Dates Next Due (PNEUMOVAX 23)(50 YRS UP) PN EUMOCOCCAL POLYSACCHARIDE (PPV23) 0.5 ML, IM 04/27/2013 INFLUENZA VACCINE QUADRIVALENT 3 YR UP PF IM 12/2014 INFLUENZA VACCINE QUADRIVALENT 6 MOS UP PF IM ,01/28/2015 Influenza Seasonal Unspecified Formulation PF IM 04/27/2013 Influenza Vaccine Split 3+ Yrs PF IM 04/27/2013 Pneumococcal Polysaccharide Vacc 23-ric IM SCHIP 04/27/2013 Family History Medical History Relation Name Comments Healthy Brother Diabetes Father Hypertension Mother Other Mother Stroke Mother Relation Name Status Comments Brother Alive Father Alive Mother Alive Social History Tobacco Use Types Packs/Day Years Used Date Smoking Tobacco: Never Passive Smoke Exposure: Never Smokeless Tobacco: Never Tobacco Cessation:Counseling Given: Not Answered Alcohol Use Standard Drinks/Week Comments Not Currently [...] often do you attend chur ch or sikhism services? More than 4 times per year 05/03/2021 Do you belong to any clubs o r organizations such as adventist groups, unions, fraternal or athletic groups, or [...] any time in the past 12 [facility], were you homeless or living in a penitentiary (including now)? No 05/03/2021 Food Insecurity Answer Date Recorded Do you find you are eating l ess than you should because you can t pay for food? No 01/20/2025 Transportation Needs Answer Date Record ed Have you gone without health care because you didn t have a way to get there? Or worry about transportation for future doctor visits, pick remover medication, etc.? No 2024 Housing Stability Answer [...] on file Legal Sex Male 6:04 AM PALLET RECTIFIER Gender Identity Not on file Sexual Orientation Not on file Last Filed Vital Signs Vital Sign Reading Time Taken Comments Blood Pressure 144/92 02/24/2025 9:04 AM PALLET RECTIFIER Pulse 86 02/24/2025 9:04 AM PALLET RECTIFIER Temperature 36.8 C (98.3 F) 02/04/2025 7:50 AM CDT Respiratory Rate 18 02/04/2025 7:50 AM CDT Oxygen Saturation 99% 02/24/2025 9:04 AM PALLET RECTIFIER Inhaled Oxygen Concentration - - Weight 55.8 kg (123 lb) 02/24/2025 9:04 AM PALLET RECTIFIER Height 188 cm (6' 2 ) 02/24/2025 9:04 AM PALLET RECTIFIER Body Mass Index 15.79 02/24/2025 9:04 AM PALLET RECTIFIER Plan of Treatment Upcoming Encounters Date Type Department Care Team (Late st Contact Info) Description 03/22/2025 12:30 PM PALLET RECTIFIER Office Visit [facility] Med [facility] [address] [facility] [address] [place] [phone] William Cardozo MD [address] [facility] [address] [place] [phone] 03/23/2025 10:50 AM PALLET RECTIFIER Appointment [facility] Laboratory Services [address] [facility] [address] [place] [address] 03/30/2025 7:50 AM PALLET RECTIFIER Office Visit [facility] Cancer [facility] Hemat[facility] [place] [address] [place] [phone] Jignesh Geiger NP [address] [place] [phone] Health Maintenance Due Date Last Done Comments DTAP/TDAP/TD VACCINES (1 - Tdap) 2009 HEPATITIS B VACCINES (1 of 3 - Risk Dialysis 4-dose series) 2010 DIABETES MICROALBUMIN ANNUAL SCREEN 01/29/2016 01/28/2015 HPV VACCINES (1 - 3-dose SCD M series) 2017 INFLUENZA VACCINE (#1) 2024 7, 01/28/2015, 01/28/2015, Additional history exists DIABETES ANNUAL RETINAL EXAM 05/06/2025, 05/06/2024, 05/06/2024, Additional history exists DIABETES HBA1C Q 6 MONTHS 08/16/20252024, 11/15/2024, 09/01/2024, Additional history exists LDL CHOLESTEROL ANNUAL 02/15/2026 02/15/2025, 2015 Medical Devices Implanted Type Area Flanger Device Identifier Shelf Expiration Date Model / Serial / Lot Cath Dialysis John Palindrome [id number] - [id number] Implanted:Qty: 1 on 02/02/2025 by Javier Jeong MD at [facility] Catheter Left: Chest Wall [facility] [id number] 06/19/2029 [id number] / / [id number] Stent Vasc Covera Flared 9x60mm 80cm [id number] - [id number] Implanted:Qty: 1 on 10/21/2023 by Javier Jeong MD at [facility] Stent Left: Arm BARD MAHI VASC [id number] 11/15/2024 [id number] / / [id number] Stent Vasc Covera Strt 9x60mm 80cm [id number] - [id number] Implanted:Qty: 1 on 10/21/2023 by Javier Jeong MD at [facility] Stent Left: Arm BARD MAHI VASC [id number] 11/09/2024 [id number] / / [id number] Stent Vasc Covera Strt 70n91hm 80cm [id number] - [id number] Implanted:Qty: 1 on 10/21/2023 by Javier Jeong MD at [facility] Stent Left: Arm BARD MAHI VASC [id number] 07/31/2025 [id number] / / [id number] Stent Vasc Covera Strt [id number] 80cm [id number] - [id number] Implanted:Qty: 1 on 10/21/2023 by Javier Jeong MD at [facility] Stent Left: Arm BARD MAHI VASC [id number] 02/15/2025 [id number] / / [id number] Explanted Type Area Flanger Device Identifier Shelf Expiration Date Model / Serial / Lot 23cm Glidecath Dialysis Catheter-2020 Implanted:Qty: 1 on 01/27/2021 by Javier Easton MD Explanted:Qty: 1 on 06/02/2021 by Ev Barbosa FNP Catheter Right: Chest [id number] 07/20/2022 [id number] / / [id number] Cath Dialysis Glidepath 14.5fr 24cm Std [id number] Implanted:Qty: 1 on 02/01/2022 by Javier Easton MD Explanted:Qty: 1 on 11/15/2022 by Claudia Bradley PREFITTER Catheter Right: Chest Wall BARD MAHI VASC 04/21/2023 [id number] / / [id number] Cath Dialysis Glidepath 14.5fr 24cm Std [id number] - [id number] Implanted:Qty: 1 on 11/24/2024 by Javier Easton MD at [facility] Catheter Right: Chest BARD MAHI VASC [id number] 03/21/2026 [id number] / / [id number] Cath Dialysis John Palindrome [id number] - [id number] Implanted:Qty: 1 on 12/14/2024 by Javier Jeong MD at [facility] Catheter Left: Chest Wall [facility] [id number] 06/19/2029 [id number] / / [id number] Powerline-12/14 Implanted:Qty: 1 on 12/14/2024 by Javier Jeong MD Catheter Left: Chest Wall 06/19/2028 / / [id number] Cath Dialysis Power Trialysis 13fr-01/28/2025 Implanted:Qty: 1 on 01/28/2025 by Javier Jeong MD Explanted:Qty: 1 on 02/02/2025 by Javier Jeong MD Catheter 06/19/2025 [id number] / / [id number] Procedures Procedure Name Priority Date/Time Associated Diagnosis Comments COMPREHENSIVE METABOLIC PANEL Routine 02/15/2025 9:48 AM CDT LIPID PANEL Routine 02/15/2025 HEMOGLOBIN A1C Routine 02/15/2025 BASIC METABOLIC PANEL Routine 02/08/2025 9:48 AM CDT TELEMETRY REPORT 02/05/2025 2:40 AM CDT POC GLUCOSE Routine 02/04/2025 3:18 PM CDT POC GLUCOSE Routine 02/04/2025 11:50 AM CDT POC GLUCOSE Routine 02/04/2025 7:48 AM CDT COMPREHENSIVE METABOLIC PANEL Routine 02/04/2025 2:12 AM CDT CBC WITH DIFFERENTIAL Routine 02/04/2025 2:12 AM CDT MAGNESIUM LEVEL Routine 02/04/2025 2:12 AM CDT PHOSPHORUS Routine 02/04/2025 2:12 AM CDT POC GLUCOSE Routine 02/03/2025 4:14 PM CDT HEMODIALYSIS Routine 02/03/2025 11:35 AM CDT POC GLUCOSE Routine 02/03/2025 7:17 AM CDT POC GLUCOSE Routine 02/03/2025 6:05 AM CDT POC GLUCOSE Routine 02/03/2025 2:13 AM CDT MAGNESIUM LEVEL Routine 02/03/2025 12:52 AM CDT PHOSPHORUS Routine 02/03/2025 12:52 AM CDT POC GLUCOSE Routine 02/02/2025 10:50 PM CDT POC GLUCOSE Routine 02/02/2025 4:50 PM CDT BASIC METABOLIC PANEL Routine 02/02/2025 1:13 PM CDT MAGNESIUM LEVEL Routine 02/02/2025 1:13 PM CDT PHOSPHORUS Routine 02/02/2025 1:13 PM CDT CBC WITH DIFFERENTIAL Routine 02/02/2025 1:12 PM CDT POC GLUCOSE Routine 02/02/2025 9:55 AM CDT IR VENOUS ACCESS Routine 02/02/2025 8:27 AM CDT NM ABSCESS LOC WHOLE BODY IND Pending Discharge 02/02/2025 8:02 AM CDT POC GLUCOSE Routine 02/02/2025 5:47 AM CDT POC GLUCOSE Routine 02/02/2025 12:42 AM CDT POC GLUCOSE Routine 02/01/2025 9:34 PM CDT POC GLUCOSE Routine 02/01/2025 5:18 PM CDT POC GLUCOSE Routine 02/01/2025 1:41 PM CDT HEMODIALYSIS Routine 02/01/2025 1:30 PM CDT POC GLUCOSE Routine 02/01/2025 9:15 AM CDT PATHOLOGY Pathology 02/01/2025 8:30 AM CDT TX ANES INSERT ENDOTRACHEAL AIRWAY Routine 02/01/2025 7:30 AM CDT AXILLARY LYMPH NODE DISSECTION 02/01/2025 7:10 AM CDT CK Routine 02/01/2025 3:53 AM CDT PROTIME-INR Routine 02/01/2025 3:53 AM CDT CBC WITH DIFFERENTIAL Routine 02/01/2025 3:53 AM CDT BASIC METABOLIC PANEL Routine 02/01/2025 3:53 AM CDT MAGNESIUM LEVEL Routine 02/01/2025 3:53 AM CDT PHOSPHORUS Routine 02/01/2025 3:53 AM CDT POC GLUCOSE Routine 01/31/2025 9:33 PM CDT POC GLUCOSE Routine 01/31/2025 12:07 PM CDT MAGNESIUM LEVEL Routine 01/31/2025 9:44 AM CDT PHOSPHORUS Routine 01/31/2025 9:44 AM CDT POC GLUCOSE Routine 01/31/2025 7:14 AM CDT POC GLUCOSE Routine 01/30/2025 8:42 PM CDT POC GLUCOSE Routine 01/30/2025 5:26 PM CDT POC GLUCOSE Routine 01/30/2025 5:07 PM CDT POC GLUCOSE Routine 01/30/2025 4:37 PM CDT POC GLUCOSE Routine 01/30/2025 4:13 PM CDT POC GLUCOSE Routine 01/30/2025 4:04 PM CDT POC GLUCOSE Routine 01/30/2025 10:53 AM CDT MAGNESIUM LEVEL Routine 01/30/2025 10:28 AM CDT PHOSPHORUS Routine 01/30/2025 10:28 AM CDT BASIC METABOLIC PANEL Routine 01/30/2025 10:28 AM CDT CBC WITH DIFFERENTIAL Routine 01/30/2025 10:28 AM CDT POC GLUCOSE Routine 01/30/2025 7:09 AM CDT POC GLUCOSE Routine 01/29/2025 11:41 PM CDT POC GLUCOSE Routine 01/29/2025 9:09 PM CDT POC GLUCOSE Routine 01/29/2025 3:25 PM CDT POC GLUCOSE Routine 01/29/2025 11:04 AM CDT HEMODIALYSIS Routine 01/29/2025 10:50 AM CDT POC GLUCOSE Routine 01/29/2025 7:25 AM CDT POC GLUCOSE Routine 01/29/2025 5:29 AM CDT FLOW CYTOMETRY REPORT Routine 01/29/2025 4:29 AM CDT FLOW CYTOMETRY PANEL Routine 01/29/2025 4:29 AM CDT MAGNESIUM LEVEL Routine 01/29/2025 4:29 AM CDT PHOSPHORUS Routine 01/29/2025 4:29 AM CDT BASIC METABOLIC PANEL Routine 01/29/2025 4:29 AM CDT CBC WITH DIFFERENTIAL Routine 01/29/2025 4:29 AM CDT POC GLUCOSE Routine 01/29/2025 12:19 AM CDT POC GLUCOSE Routine 01/28/2025 9:27 PM CDT HIV DETECTION W/REFLX CONFIRMATION Routine 01/28/2025 8:49 PM CDT POC GLUCOSE Routine 01/28/2025 5:11 PM CDT IR VENOUS ACCESS Pending Discharge 01/28/2025 2:19 PM CDT IV CATHETER CULTURE Routine 01/28/2025 2 :15 PM CDT POC GLUCOSE Routine 01/28/2025 11:26 AM CDT ECHO TRANSESOPHAGEAL W DOPPLER AND COLOR FLOW Routine 01/28/2025 9:20 AM CDT CBC WITH DIFFERENTIAL Routine 01/28/2025 6:03 AM CDT MAGNESIUM LEVEL Routine 01/28/2025 6:02 AM CDT PHOSPHORUS Routine 01/28/2025 6:02 AM CDT BASIC METABOLIC PANEL Routine 01/28/2025 6:02 AM CDT POC GLUCOSE Routine 01/28/2025 4:08 AM CDT POC GLUCOSE Routine 01/28/2025 12:01 AM CDT POC GLUCOSE Routine 01/27/2025 8:11 PM CDT POC GLUCOSE Routine 01/27/2025 5:06 PM CDT BLOOD CULTURE Routine 01/27/2025 3:29 PM CDT BLOOD CULTURE Routine 01/27/2025 3:29 PM CDT BLOOD CULTURE Routine 01/27/2025 3:29 PM CDT BLOOD CULTURE Routine 01/27/2025 3:[address] CHEST ABDOMEN PELVIS WO CONT Stat 01/27/2025 1:38 PM CDT POC GLUCOSE Routine 01/27/2025 12:09 PM CDT POC GLUCOSE Routine 01/27/2025 4:11 AM CDT MAGNESIUM LEVEL Routine 01/27/2025 1:13 AM CDT PHOSPHORUS Routine 01/27/2025 1:13 AM CDT BASIC METABOLIC PANEL Routine 01/27/2025 1:13 AM CDT CBC WITH DIFFERENTIAL Routine 01/27/2025 1:12 AM CDT POC GLUCOSE Routine 01/27/2025 12:25 AM CDT POC GLUCOSE Routine 01/26/2025 8:23 PM CDT POC GLUCOSE Routine 01/26/2025 4:15 PM CDT POC GLUCOSE Routine 01/26/2025 11:26 AM CDT MAGNESIUM LEVEL Routine 01/26/2025 9:16 AM CDT PHOSPHORUS Routine 01/26/2025 9:16 AM CDT BASIC METABOLIC PANEL Routine 01/26/2025 9:16 AM CDT CBC WITH DIFFERENTIAL Routine 01/26/2025 9:16 AM CDT POC GLUCOSE Routine 01/26/2025 7:38 AM CDT POC GLUCOSE Routine 01/25/2025 10:28 PM CDT POC GLUCOSE Routine 01/25/2025 5:19 PM CDT POC GLUCOSE Routine 01/25/2025 9:36 AM CDT MAGNESIUM LEVEL Routine 01/25/2025 4:33 AM CDT PHOSPHORUS Routine 01/25/2025 4:33 AM CDT BASIC METABOLIC PANEL Routine 01/25/2025 4:33 AM CDT CBC WITH DIFFERENTIAL Routine 01/25/2025 4:33 AM CDT POC GLUCOSE Routine 01/24/2025 8:18 PM CDT POC GLUCOSE Routine 01/24/2025 5:43 PM CDT POC GLUCOSE Routine 01/24/2025 12:15 PM CDT POC GLUCOSE Routine 01/24/2025 7:30 AM CDT MAGNESIUM LEVEL Routine 01/24/2025 6:46 AM CDT PHOSPHORUS Routine 01/24/2025 6:46 AM CDT BASIC METABOLIC PANEL Routine 01/24/2025 6:46 AM CDT CBC WITH DIFFERENTIAL Routine 01/24/2025 6:46 AM CDT POC GLUCOSE Routine 01/24/2025 5:09 AM CDT POC GLUCOSE Routine 01/23/2025 11:46 PM CDT POC GLUCOSE Routine 01/23/2025 8:40 PM CDT POC GLUCOSE Routine 01/23/2025 5:33 PM CDT POC GLUCOSE Routine 01/23/2025 12:24 PM CDT POC GLUCOSE Routine 01/23/2025 8:16 AM CDT COMPREHENSIVE METABOLIC PANEL Routine 01/23/2025 4:04 AM CDT MAGNESIUM LEVEL Routine 01/23/2025 4:04 AM CDT PHOSPHORUS Routine 01/23/2025 4:04 AM CDT CBC WITH DIFFERENTIAL Routine 01/23/2025 4:04 AM CDT POC GLUCOSE Routine 01/22/2025 8:50 PM CDT HEMOGLOBIN AND HEMATOCRIT Routine 01/22/2025 8:24 PM CDT POC GLUCOSE Routine 01/22/2025 5:58 PM CDT HEMODIALYSIS Routine 01/22/2025 5:31 PM CDT POC GLUCOSE Routine 01/22/2025 11:15 AM CDT HEMOGLOBIN AND HEMATOCRIT Routine 01/22/2025 8:48 AM CDT POC GLUCOSE Routine 01/22/2025 6:54 AM CDT COMPREHENSIVE METABOLIC PANEL Routine 01/22/2025 12:55 AM CDT MAGNESIUM LEVEL Routine 01/22/2025 12:55 AM CDT PHOSPHORUS Routine 01/22/2025 12:55 AM CDT CBC WITH DIFFERENTIAL Routine 01/22/2025 12:55 AM CDT POC GLUCOSE Routine 01/22/2025 12:54 AM CDT POC GLUCOSE Routine 01/21/2025 9:38 PM CDT TRANSFUSE PACKED RED BLOOD CELLS Routine 01/21/2025 6:03 PM CDT TYPE AND SCREEN Routine 01/21/2025 3:35 PM CDT PREPARE RED BLOOD CELLS Routine 01/21/2025 3:20 PM CDT POC GLUCOSE Routine 01/21/2025 2:36 PM CDT HEMOGLOBIN AND HEMATOCRIT Routine 01/21/2025 2:32 PM CDT POC GLUCOSE Routine 01/21/2025 9:06 AM CDT DIFFERENTIAL, MANUAL Routine 01/21/2025 3:19 AM CDT MAGNESIUM LEVEL Routine 01/21/2025 3:19 AM CDT PHOSPHORUS Routine 01/21/2025 3:19 AM CDT COMPREHENSIVE METABOLIC PANEL Routine 01/21/2025 3:19 AM CDT CBC WITH DIFFERENTIAL Routine 01/21/2025 3:19 AM CDT POC GLUCOSE Routine 01/21/2025 3:18 AM CDT POC GLUCOSE Routine 01/20/2025 11:39 PM CDT POC GLUCOSE Routine 01/20/2025 8:36 PM CDT POC GLUCOSE Routine 01/20/2025 4:05 PM CDT PHOSPHORUS Timed Study 01/20/2025 4:05 PM CDT MAGNESIUM LEVEL Timed Study 01/20/2025 4:05 PM CDT BASIC METABOLIC PANEL Timed Study 01/20/2025 4:05 PM CDT POC GLUCOSE Routine 01/20/2025 11:18 AM CDT LACTIC ACID Stat 01/20/2025 8:26 AM CDT BLOOD CULTURE MRSA/MSSA PCR PANEL Routine 01/20/2025 8:07 AM CDT BLOOD CULTURE Routine 01/20/2025 8:07 AM CDT BLOOD CULTURE Routine 01/20/2025 8:07 AM CDT BLOOD CULTURE Routine 01/20/2025 8:07 AM CDT BLOOD CULTURE Routine 01/20/2025 8:07 AM CDT POC GLUCOSE Routine 01/20/2025 7:14 AM CDT PHOSPHORUS Routine 01/20/2025 4:05 AM CDT MAGNESIUM LEVEL Routine 01/20/2025 4:05 AM CDT CK Routine 01/20/2025 4:05 AM CDT DIFFERENTIAL, MANUAL Stat 01/20/2025 4:05 AM CDT CBC WITH DIFFERENTIAL Stat 01/20/2025 4:05 AM CDT BRAIN NATRIURETIC PEPTIDE, BNP OR PROBNP Stat 01/20/2025 4:05 AM CDT COMPREHENSIVE METABOLIC PANEL Routine 01/20/2025 4:05 AM CDT POC GLUCOSE Routine 01/20/2025 4:04 AM CDT BLOOD GAS ARTERIAL Stat 01/20/2025 1: 03 AM CDT XR CHEST PA OR AP 1 VW Stat 12:57 AM CDT POC GLUCOSE Routine 01/20/2025 12:17 AM CDT POC GLUCOSE Routine 01/19/2025 4:16 PM CDT POC GLUCOSE Routine 01/19/2025 11:19 AM CDT POC GLUCOSE Routine 01/19/2025 10:09 AM CDT PATHOLOGY Pathology 01/19/2025 8:39 AM CDT TX ANES INSERT ENDOTRACHEAL AIRWAY Routine 01/19/2025 7:52 AM CDT WOUND CLOSURE VACUUM ASSISTED 01/19/2025 7:20 AM CDT LEG AMPUTATION ABOVE OR BELOW KNEE 01/19/2025 7:20 AM CDT CBC WITH DIFFERENTIAL Routine 01/19/2025 5:51 AM CDT PTT Routine 01/19/2025 5:50 AM CDT PROTIME-INR Routine 01/19/2025 5:50 AM CDT COMPREHENSIVE METABOLIC PANEL Routine 01/19/2025 5:50 AM CDT POC GLUCOSE Routine 01/18/2025 4:33 PM CDT HEMODIALYSIS Routine 01/18/2025 2:31 PM CDT POC GLUCOSE Routine 01/18/2025 10:43 AM CDT POC GLUCOSE Routine 01/18/2025 6:58 AM CDT BASIC METABOLIC PANEL Routine 01/18/2025 6:36 AM CDT CBC WITH DIFFERENTIAL Routine 01/18/2025 6:36 AM CDT POC GLUCOSE Routine 01/17/2025 7:34 PM CDT POC GLUCOSE Routine 01/17/2025 4:32 PM CDT POC GLUCOSE Routine 01/17/2025 10:31 AM CDT BASIC METABOLIC PANEL Routine 01/17/2025 8:06 AM CDT CBC WITH DIFFERENTIAL Routine 01/17/2025 8:06 AM CDT POC GLUCOSE Routine 01/16/2025 8:23 PM CDT US TRANSCUTANEOUS OXYGEN ILANA MULTI Stat 01/16/2025 3:24 PM CDT POC GLUCOSE Routine 01/16/2025 11:44 AM CDT BASIC METABOLIC PANEL Routine 01/16/2025 7:14 AM CDT CBC WITH DIFFERENTIAL Routine 01/16/2025 7:14 AM CDT POC GLUCOSE Routine 01/15/2025 4:57 PM CDT POC GLUCOSE Routine 01/15/2025 11:20 AM CDT POC GLUCOSE Routine 01/15/2025 7:25 AM CDT C-REACTIVE PROTEIN Routine 01/15/2025 6: 37 AM CDT SEDIMENTATION RATE Routine 01/15/2025 6: 37 AM CDT PHOSPHORUS Routine 01/15/2025 6:37 AM CDT BASIC METABOLIC PANEL Routine 01/15/2025 6:37 AM CDT CBC WITH DIFFERENTIAL Routine 01/15/2025 6:37 AM CDT MRI FOOT W WO CONTRAST RIGHT Routine 01/15/2025 6:03 AM CDT MRI ANKLE W WO CONTRAST LEFT Routine 01/15/2025 6:03 AM CDT MRI ANKLE W WO CONTRAST RIGHT Routine 01/15/2025 6:03 AM CDT MRI FOOT W WO CONTRAST LEFT Routine 01/15/2025 6:03 AM CDT POC GLUCOSE Routine 01/15/2025 3:37 AM CDT POC GLUCOSE Routine 01/15/2025 12:23 AM CDT POC GLUCOSE Routine 01/14/2025 8:26 PM CDT POC GLUCOSE Routine 01/14/2025 4:27 PM CDT NM MYOCARD PERF IMAG SPECT MULT Stat 01/14/2025 4:11 PM CDT NM PHARMACOLOGICAL STRESS TEST Stat 01/14/2025 2:38 PM CDT POC GLUCOSE Routine 01/14/2025 12:59 PM CDT POC GLUCOSE Routine 01/14/2025 12:22 PM CDT POC GLUCOSE Routine 01/14/2025 12:03 PM CDT POC GLUCOSE Routine 01/14/2025 11:26 AM CDT US DUPLEX ARTERIAL LEGS BILATERAL Stat 01/14/2025 8:59 AM CDT POC GLUCOSE Routine 01/14/2025 7:09 AM CDT BASIC METABOLIC PANEL Routine 01/14/2025 5:58 AM CDT CBC WITH DIFFERENTIAL Routine 01/14/2025 5:58 AM CDT POC GLUCOSE Routine 01/14/2025 4:26 AM CDT POC GLUCOSE Routine 01/14/2025 12:35 AM CDT POC GLUCOSE Routine 01/13/2025 7:31 PM CDT POC GLUCOSE Routine 01/13/2025 4:26 PM CDT POC GLUCOSE Routine 01/13/2025 10:33 AM CDT BASIC METABOLIC PANEL Stat 01/13/2025 10:29 AM CDT POC GLUCOSE Routine 01/13/2025 8:27 AM CDT POC GLUCOSE Routine 01/13/2025 8:05 AM CDT POC GLUCOSE Routine 01/13/2025 7:47 AM CDT POC GLUCOSE Routine 01/13/2025 7:01 AM CDT POC GLUCOSE Routine 01/13/2025 5:22 AM CDT POC GLUCOSE Stat 01/12/2025 11:28 PM CDT POC GLUCOSE Stat 01/12/2025 10:55 PM CDT POC GLUCOSE Stat 01/12/2025 10:22 PM CDT POC GLUCOSE Stat 01/12/2025 10:07 PM CDT TROPONIN 6 HR, 5TH GEN Timed Study 5 8:33 PM CDT TROPONIN 2 HR, 5TH GEN Timed Study 5 5:31 PM CDT EXTRA TUBE (BLUE) Stat 01/12/2025 4:3 8 PM CDT EXTRA TUBE Stat 01/12/2025 4:38 PM CDT BLOOD CULTURE Stat 01/12/2025 3:33 PM CDT BLOOD CULTURE Stat 01/12/2025 3:33 PM CDT BLOOD CULTURE Stat 01/12/2025 3:33 PM CDT BLOOD CULTURE Stat 01/12/2025 3:33 PM CDT XR CHEST PA OR AP 1 VW Stat 2:39 PM CDT LIPASE Stat 01/12/2025 2:31 PM CDT TROPONIN BASELINE, 5TH GEN Stat 01/12/2025 2:31 PM CDT COMPREHENSIVE METABOLIC PANEL Stat 01/12/2025 2:31 PM CDT CBC WITH DIFFERENTIAL Stat 01/12/2025 2:31 PM CDT EKG 12-LEAD Stat 01/12/2025 2:05 PM CDT POC GLUCOSE Stat 01/08/2025 8:18 AM CDT POC GLUCOSE Stat 01/07/2025 7:36 PM CDT POC GLUCOSE Stat 01/07/2025 7:05 PM CDT POC GLUCOSE Stat 01/07/2025 5:46 PM CDT BLOOD CULTURE Stat 01/07/2025 2:43 PM CDT BLOOD CULTURE Stat 01/07/2025 2:43 PM CDT LACTIC ACID Stat 01/07/2025 2:35 PM CDT COMPREHENSIVE METABOLIC PANEL Stat 01/07/2025 2:35 PM CDT CBC WITH DIFFERENTIAL Stat 01/07/2025 2:35 PM CDT BLOOD CULTURE Stat 01/07/2025 2:35 PM CDT BLOOD CULTURE Stat 01/07/2025 2:35 PM CDT TELEMETRY REPORT 12/25/2024 2:07 PM CDT POC GLUCOSE Routine 12/24/2024 5:52 PM CDT POC GLUCOSE Routine 12/24/2024 11:35 AM CDT HAPTOGLOBIN Routine 12/24/2024 10:11 AM CDT RENAL FUNCTION PANEL Routine 12/24/2024 10:11 AM CDT POC GLUCOSE Routine 12/24/2024 7:48 AM CDT POC GLUCOSE Routine 12/24/2024 4:30 AM CDT POC GLUCOSE Routine 12/24/2024 12:02 AM CDT POC GLUCOSE Routine 12/23/2024 8:18 PM CDT POC GLUCOSE Routine 12/23/2024 7:26 PM CDT POC GLUCOSE Routine 12/23/2024 4:59 PM CDT POC GLUCOSE Routine 12/23/2024 12:06 PM CDT POC GLUCOSE Routine 12/23/2024 7:36 AM CDT CBC WITH DIFFERENTIAL Routine 12/23/2024 6:06 AM CDT RENAL FUNCTION PANEL Routine 12/23/2024 6:06 AM CDT POC GLUCOSE Routine 12/23/2024 3:42 AM CDT POC GLUCOSE Routine 12/23/2024 12:14 AM CDT POC GLUCOSE Routine 12/22/2024 9:03 PM CDT POC GLUCOSE Routine 12/22/2024 5:07 PM CDT POC GLUCOSE Routine 12/22/2024 1:02 PM CDT POC GLUCOSE Routine 12/22/2024 11:31 AM CDT POC GLUCOSE Routine 12/22/2024 7:28 AM CDT RENAL FUNCTION PANEL Routine 12/22/2024 5:27 AM CDT POC GLUCOSE Routine 12/22/2024 3:00 AM CDT POC GLUCOSE Routine 12/22/2024 12:29 AM CDT POC GLUCOSE Routine 12/21/2024 8:06 PM CDT POC GLUCOSE Routine 12/21/2024 5:07 PM CDT POC GLUCOSE Routine 12/21/2024 11:35 AM CDT HEMODIALYSIS Routine 12/21/2024 11:18 AM CDT POC GLUCOSE Routine 12/21/2024 7:42 AM CDT CBC WITH DIFFERENTIAL Routine 12/21/2024 5:07 AM CDT RENAL FUNCTION PANEL Routine 12/21/2024 5:07 AM CDT POC GLUCOSE Routine 12/21/2024 3:58 AM CDT POC GLUCOSE Routine 12/21/2024 12:03 AM CDT POC GLUCOSE Routine 12/20/2024 8:59 PM CDT POC GLUCOSE Routine 12/20/2024 4:58 PM CDT POC GLUCOSE Routine 12/20/2024 12:00 PM CDT POC GLUCOSE Routine 12/20/2024 7:33 AM CDT RENAL FUNCTION PANEL Routine 12/20/2024 4:24 AM CDT POC GLUCOSE Routine 12/20/2024 4:23 AM CDT POC GLUCOSE Routine 12/19/2024 11:38 PM CDT POC GLUCOSE Routine 12/19/2024 8:06 PM CDT POC GLUCOSE Routine 12/19/2024 5:18 PM CDT POC GLUCOSE Routine 12/19/2024 11:35 AM CDT POC GLUCOSE Routine 12/19/2024 7:29 AM CDT POC GLUCOSE Routine 12/19/2024 4:18 AM CDT CBC WITH DIFFERENTIAL Routine 12/19/2024 4:03 AM CDT RENAL FUNCTION PANEL Routine 12/19/2024 4:03 AM CDT POC GLUCOSE Routine 12/18/2024 11:51 PM CDT FOLATE, SERUM Routine 12/18/2024 9:05 PM CDT VITAMIN B12 LEVEL Routine 12/18/2024 9:0 5 PM CDT ZINC LEVEL Routine 12/18/2024 9:05 PM CDT COPPER LEVEL Routine 12/18/2024 9:05 PM CDT POC GLUCOSE Routine 12/18/2024 8:05 PM CDT POC GLUCOSE Routine 12/18/2024 5:26 PM CDT POC GLUCOSE Routine 12/18/2024 12:09 PM CDT US GUIDE NEEDLE PLACEMENT Routine 12/18/2024 11:57 AM CDT FLOW CYTOMETRY REPORT Routine 12/18/2024 11:38 AM CDT PATHOLOGY Pathology 12/18/2024 11:38 AM CDT FLOW CYTOMETRY PANEL Routine 12/18/2024 11:38 AM CDT POC GLUCOSE Routine 12/18/2024 7:24 AM CDT RENAL FUNCTION PANEL Routine 12/18/2024 4:47 AM CDT POC GLUCOSE Routine 12/18/2024 4:19 AM CDT POC GLUCOSE Routine 12/18/2024 12:10 AM CDT POC GLUCOSE Routine 12/17/2024 9:15 PM CDT POC GLUCOSE Routine 12/17/2024 5:53 PM CDT POC GLUCOSE Routine 12/17/2024 12:15 PM CDT XR CHEST PA OR AP 1 VW Pending Discharge 12/17/2024 11:59 AM CDT POC GLUCOSE Routine 12/17/2024 8:16 AM CDT POC GLUCOSE Routine 12/17/2024 5:34 AM CDT RENAL FUNCTION PANEL Routine 12/17/2024 4:10 AM CDT CBC WITH DIFFERENTIAL Routine 12/17/2024 4:09 AM CDT POC GLUCOSE Routine 12/17/2024 12:32 AM CDT POC GLUCOSE Routine 12/16/2024 9:30 PM CDT POC GLUCOSE Routine 12/16/2024 5:20 PM CDT POC GLUCOSE Routine 12/16/2024 12:23 PM CDT PHOSPHORUS Routine 12/16/2024 6:39 AM CDT COMPREHENSIVE METABOLIC PANEL Stat 12/16/2024 6:39 AM CDT CBC WITH DIFFERENTIAL Stat 12/16/2024 6:39 AM CDT POC GLUCOSE Routine 12/16/2024 4:44 AM CDT POC GLUCOSE Routine 12/16/2024 12:57 AM CDT POC GLUCOSE Routine 12/15/2024 8:54 PM CDT POC GLUCOSE Routine 12/15/2024 5:33 PM CDT POC GLUCOSE Routine 12/15/2024 12:56 PM CDT [employer] AND [employer]MIN[employer]RATIVE [employer] EVALUATE AND TREAT Routine 11:42 AM CDT DIFFERENTIAL, MANUAL Routine 12/15/2024 8:32 AM CDT CBC WITH DIFFERENTIAL Routine 12/15/2024 8:32 AM CDT COMPREHENSIVE METABOLIC PANEL Routine 12/15/2024 8:32 AM CDT POC GLUCOSE Routine 12/15/2024 7:29 AM CDT PROTIME-INR Routine 12/15/2024 6:25 AM CDT POC GLUCOSE Routine 12/15/2024 5:24 AM CDT LEVETIRACETAM LEVEL Routine 12/15/2024 5 :22 AM CDT POC GLUCOSE Routine 12/14/2024 11:34 PM CDT IR VENOUS ACCESS Routine 12/14/2024 4:07 PM CDT IR VENOUS ACCESS Routine 12/14/2024 4:05 PM CDT PROTIME-INR Routine 12/14/2024 12:31 PM CDT POC GLUCOSE Routine 12/14/2024 12:03 PM CDT TRANSFUSE FROZEN PLASMA Routine 12/14/2024 11:58 AM CDT TRANSFUSE FROZEN PLASMA Routine 12/14/2024 11:57 AM CDT TRANSFUSE FROZEN PLASMA Routine 12/14/2024 10:36 AM CDT TRANSFUSE FROZEN PLASMA Routine 12/14/2024 10:34 AM CDT PREPARE FRESH FROZEN PLASMA Routine 12/14/2024 9:24 AM CDT PREPARE FRESH FROZEN PLASMA Routine 12/14/2024 9:24 AM CDT POC GLUCOSE Routine 12/14/2024 8:35 AM CDT PREPARE FRESH FROZEN PLASMA Routine 12/14/2024 8:22 AM CDT PREPARE FRESH FROZEN PLASMA Routine 12/14/2024 8:22 AM CDT XR CHEST PA OR AP 1 VW Stat 6:00 AM CDT POC GLUCOSE Routine 12/14/2024 4:23 AM CDT ABORH TYPING Routine 12/14/2024 4:22 AM CDT PHOSPHORUS Routine 12/14/2024 4:22 AM CDT MAGNESIUM LEVEL Routine 12/14/2024 4:22 AM CDT DIFFERENTIAL, MANUAL Routine 12/14/2024 4:22 AM CDT PT AND APTT Routine 12/14/2024 4:22 AM CDT CBC WITH DIFFERENTIAL Routine 12/14/2024 4:22 AM CDT COMPREHENSIVE METABOLIC PANEL Routine 12/14/2024 4:22 AM CDT POC GLUCOSE Routine 12/13/2024 11:26 PM CDT POC GLUCOSE Routine 12/13/2024 9:19 PM CDT BASIC METABOLIC PANEL Routine 12/13/2024 4:00 PM CDT POC GLUCOSE Routine 12/13/2024 3:59 PM CDT POC GLUCOSE Routine 12/13/2024 12:07 PM CDT [employer] EVALUATE AND TREAT Routine 9:26 AM CDT PHOSPHORUS Routine 12/13/2024 8:37 AM CDT CBC WITH DIFFERENTIAL Routine 12/13/2024 8:37 AM CDT COMPREHENSIVE METABOLIC PANEL Routine 12/13/2024 8:37 AM CDT POC GLUCOSE Routine 12/13/2024 7:21 AM CDT POC GLUCOSE Routine 12/13/2024 5:21 AM CDT EKG 12-LEAD Routine 12/13/2024 5:16 AM CDT POC GLUCOSE Routine 12/13/2024 12:56 AM CDT POC GLUCOSE Routine 12/12/2024 8:55 PM CDT POC GLUCOSE Routine 12/12/2024 5:42 PM CDT POC GLUCOSE Routine 12/12/2024 1:14 PM CDT POC GLUCOSE Routine 12/12/2024 7:43 AM CDT POC GLUCOSE Routine 12/12/2024 5:10 AM CDT CBC WITH DIFFERENTIAL Routine 12/12/2024 5:07 AM CDT COMPREHENSIVE METABOLIC PANEL Routine 12/12/2024 5:07 AM CDT MAGNESIUM LEVEL Routine 12/12/2024 5:07 AM CDT PHOSPHORUS Routine 12/12/2024 5:07 AM CDT POC GLUCOSE Routine 12/12/2024 12:45 AM CDT MICROALBUMIN/CREATININ E RATIO, RANDOM UR Routine 01/28/2015 2:57 PM CDT from Last 3 Months or Most Recently Relevant to Health Maintenance Results * COMPREHENSIVE METABOLIC PANEL (02/15/2025 9:48 AM CDT) Only the most recent of14 resultswithin the time period is included. Blood us Abstract Provider CHEMISTRY ORDERABLES Final Res ult * HEMOGLOBIN A1C (02/15/2025) Pathologist [facility] ABSTRACTED HGB A1C 4.1 % Blood 02/15/2025 us Abstract Provider CHEMISTRY ORDERABLES Final Res ult * LIPID PANEL (02/15/2025) ABSTRACTED CHOLESTEROL 97 ABSTRACTED TRIGLYCERIDE 86 ABSTRACTED HDL 42 ABSTRACTED LDL CALCULATED 38 Blood 02/15/2025 us Abstract Provider CHEMISTRY ORDERABLES Final Res ult * BASIC METABOLIC PANEL (02/08/2025 9:48 AM CDT) Only the most recent of18 resultswithin the time period is included. Blood us Abstract Provider CHEMISTRY ORDERABLES Final Res ult * TELEMETRY REPORT (02/05/2025 2:40 AM CDT) Only the most recent of2 resultswithin the time period is included. us Provider Scanning ECG ORDERABLES Final Result * (ABNORMAL) POC GLUCOSE (02/04/2025 3:18 PM CDT) Only the most recent of194 resultswithin the time period is included. Pathologist [facility] GLUCOSE POC 151(H) 74 - 99 mg/dL 02/04/2025 3:18 PM CDT [facility] SPECIMEN SOURCE, GLUCOSE POC Capillary 02/04/2025 3:18 PM CDT [facility] Blood, whole 02/04/2025 3:18 PM CDT 02/05/2025 1:12 PM CDT us Angelica Gomez MD POINT OF CARE TESTING Final R esult [facility] # [id number] [id number] [facility] [place] [address] * (ABNORMAL) CBC WITH DIFFERENTIAL (02/04/2025 2:12 AM CDT) Only the most recent of31 resultswithin the time period is included. [facility] WBC 8.0 4.5 - 11.0 K/uL 02/04/2025 2:54 AM CDT [facility] RBC 2.80(L) 4.60 - 6.20 M/uL 02/04/2025 2:54 AM CDT [facility] HEMOGLOBIN 8.4(L) 14.0 - 18.0 g/dL 02/04/2025 2:54 AM CDT [facility] HEMATOCRIT 27.9(L) 41.0 - 53.0 % 02/04/2025 2:54 AM CDT [facility] MCV 99.6 84.0 - 103.0 fL 02/04/2025 2:54 AM CDT [facility] MCH 30.0 27.0 - 34.0 pg 02/04/2025 2:54 AM CDT [facility] MCHC 30.1 30.0 - 35.0 g/dL 02/04/2025 2:54 AM CDT [facility] PLATELETS 252 140 - 440 K/uL 02/04/2025 2:54 AM CDT [facility] MPV 8.8(L) 8.9 - 12.8 fL 02/04/2025 2:54 AM CDT [facility] RDW 16.7(H) 11.0 - 14.5 % 02/04/2025 2:54 AM CDT [facility] RDW-STDEV 60.5(H) 37.0 - 54.0 fL 02/04/2025 2:54 AM CDT [facility] NEUTROPHILS 48 42 - 75 % 02/04/2025 2:54 AM CDT [facility] LYMPHOCYTES 21(L) 24 - 44 % 02/04/2025 2:54 AM CDT [facility] MONOCYTES 6 2 - 10 % 02/04/2025 2:54 AM CDT [facility] EOSINOPHILS 24(H) 0 - 7 % 02/04/2025 2:54 AM CDT [facility] BASOPHILS 1 0 - 1 % 02/04/2025 2:54 AM CDT [facility] IMMATURE GRANULOCYTES 0 0 - 2 % 02/04/2025 2:54 AM CDT [facility] NEUTROPHIL ABSOLUTE 3.84 2.00 - 8.00 K/uL 02/04/2025 2:54 AM CDT [facility] LYMPHOCYTE ABSOLUTE 1.64 1.20 - 4.00 K/uL 02/04/2025 2:54 AM CDT [facility] MONOCYTE ABSOLUTE 0.48 0.10 - 0.60 K/uL 02/04/2025 2:54 AM CDT [facility] EOSINOPHIL ABSOLUTE 1.92(H) 0.00 - 0.70 K/uL 02/04/2025 2:54 AM CDT [facility] BASOPHILS ABSOLUTE 0.09 0.00 - 0.20 K/uL 02/04/2025 2:54 AM CDT [facility] IMMATURE GRANULOCYTES ABSOLUTE 0.03 0.00 - 0.10 K/uL 02/04/2025 2:54 AM CDT [facility] SMEAR REVIEWED: NA - Not Applicable 02/04/2025 2:54 AM T [facility] Blood Venipuncture / Unknown 02/04/2025 2:12 AM CDT 02/04/2025 2:50 AM CDT us Angelica Gomez MD HEMATOLOGY ORDERABLES Final R esult [facility] CLIA # [id number] [address] [facility] [place] [address] * PHOSPHORUS (02/04/2025 2:12 AM CDT) Only the most recent of22 resultswithin the time period is included. PHOSPHORUS 3.9 2.5 - 4.5 mg/dL 02/04/2025 3:26 AM CDT [facility] Blood Venipuncture / Unknown 02/04/2025 2:12 AM CDT 02/04/2025 2:50 AM CDT Cristiana Decker MD CHEMISTRY ORDERABLES [place] l Result Performing Organization Address [facility] Co de Phone Number [facility] CLIA # [id number] [id number] [place] [address] * MAGNESIUM LEVEL (02/04/2025 2:12 AM CDT) Only the most recent of19 resultswithin the time period is included. MAGNESIUM 2.2 1.6 - 2.6 mg/dL 02/04/2025 3:26 AM CDT [facility] Blood Venipuncture / Unknown 02/04/2025 2:12 AM CDT 02/04/2025 2:50 AM CDT Cristiana Decker MD CHEMISTRY ORDERABLES [place] l Result Performing Organization Address City/[facility]/ZIP Co de Phone Number [facility] CLIA # [id number] [address] [address] [place] [address] * HEMODIALYSIS (02/03/2025 11:35 AM CDT) Narrative [facility] - 02/03/2025 11:35 AM CDT Trace Mensah MD 02/03/2025 2:19 PM [facility] - Procedure Note Primary Personnel Security Specialist: Dr. Moisés Mensah PROCEDURE: Intermittent Hemodialysis INDICATION: end stage renal disease Procedure: Utilizing the patient's LIJ tunneled line as a vascular access, the patient was initiated on hemodialysis. Dialysis is planned for 4 hours. Blood flow of 400 ml per minute and Dialysate flow of 600 ml per minute were prescribed. The bath used was 2 mEq/L potassium, 3 mEq/L calcium, 140 mEq/L sodium and 35 mEq/L bicarbonate. UF goal: 1.5L, BP stable. Revaclear 400 hollow fiber dialyzer was used. No heparin was used for anticoagulation. No complications have been encountered to this point. I was present during dialysis, and was available for the entirety of the dialysis treatment. # Compliant with frequency and duration of dialysis: yes Physical Exam: BP (!) 147/100 (BP Location: Left arm, Patient Position (BP): Supine) Comment: rn notified Pulse 98 Temp 97 F (36.1 C) (Oral) Resp 17 Ht 6' 2 (1.88 m) Wt 56 kg (123 lb 7.3 oz) SpO2 99% BMI 15.85 kg/m In bed, no acute distress Assesment and Plan: ESRD: post bilateral AKA. Will do HD planned today, on MWF. Still with trialysis line. Blood cultures remain neg from 01/27 .tunneled line placed 02/02 . Antibiotics have been arranged at his OP hemodialysis unit per dr Mensah. Anemia- below goal, continue on SANJAY Hypotension- chronic in 80s-90s asymptomatic. On midodrine. Appears improved Larry Moran NP [facility] 02/03/25, 11:35 AM Larry Moran NP DIALYSIS ORDERABLES Final Re sult [facility] CLIA# [id number] [address] [place] [address] * IR VENOUS ACCESS (02/02/2025 8:27 AM CDT) Only the most recent of4 resultswithin the time period is included. Anatomical Region Laterality Modality X-Ray Angiograph y 02/02/2025 8:41 AM CDT Impressions 02/02/2025 9:24 AM CDT IMPRESSION: Successful placement of a left IJ approach tunneled dialysis catheter. PLAN: The new tunneled dialysis catheter is cleared for use as needed. Please note that the catheter's lumens have been loaded with heparin. I, Dr. Javier Jeong, certify that I was present for the procedure. Narrative 02/02/2025 9:24 AM CDT PROCEDURES: Ultrasound-guided access of the left internal jugular vein. Placement of a left internal jugular vein approach dual-lumen tunneled catheter. Moderate conscious sedation. HISTORY: Needs dialysis access. OPERATORS: Dr. Javier Jeong. BARRIER PRECAUTIONS: Maximum sterile barrier with operators fully gowned with mask, gowns and gloves. A full sterile drape was placed on the patient. Hand hygiene was performed with alcohol-based and rub antiseptic. Sterile single use ultrasound gel was used for the procedure during ultrasound guidance. ESTIMATED BLOOD LOSS: 3 mL PROCEDURE DETAILS: Patient's left neck and upper chest were prepped and draped in the usual sterile fashion with 2% chlorhexidine. Preprocedural timeout was performed. Versed and fentanyl were given IV by a radiology nurse who is a trained independent observer dedicated to patient monitoring during moderate sedation under my supervision. 1% lidocaine was infiltrated over the left internal jugular vein for local anesthesia. Ultrasound was used and the left internal jugular vein was found to be patent. Next, under direct ultrasound visualization, the left internal jugular vein was accessed with a 21 gauge micropuncture needle and a 0.018 wire, a respective image was saved. The needle was then exchanged for a micropuncture sheath. Next a suitable position for the subcutaneous tunnel tract was identified and anesthetized with 2% lidocaine with epinephrine. A skin teresa was made at the exit site on the left upper chest and a blunt-tipped tunneler was used to tunnel through the subcutaneous tissue to the venous access site. The 14.5 [place], 23 cm (tip to cuff), dual-lumen dialysis catheter was then pulled through the tunnel with dacron cuff within the subcutaneous tunnel. Next, the 0.018 inch wire and 3 Fr dilator within the micropuncture sheath were removed and a 0.035 J-wire was then advanced into the IVC under direct fluoroscopic visualization. The micropuncture sheath was removed and serial dilation was performed over the wire. Next the peel-away sheath in the tunneled catheter kit was advanced over the wire into the SVC under direct fluoroscopic visualization and the wire and peel-away inner dilator were removed. The 14.5 [place] dialysis catheter was advanced through the peel-away sheath with final tip position in the right atrium. Both of the lumens flush and aspirate briskly and are loaded with heparin. The new tunneled dialysis catheter was anchored to the skin with suture and dressed with a Biopatch, sterile gauze and a Tegaderm. The neck access site was closed with a buried absorbable suture and skin glue. The existing left IJ temporary dialysis catheter was then removed. Manual pressure was held for hemostasis and a sterile dressing was applied. The patient tolerated the procedure well with no immediate complications and was in stable condition at the completion of the procedure. Procedure Note Javier Jeong MD - 02/02/2025 PROCEDURES: Ultrasound-guided access of the left internal jugular vein. Placement of a left internal jugular vein approach dual-lumen tunneled catheter. Moderate conscious sedation. HISTORY: Needs dialysis access. OPERATORS: Dr. Javier Jeong. BARRIER PRECAUTIONS: Maximum sterile barrier with operators fully gowned with mask, gowns and gloves. A full sterile drape was placed on the patient. Hand hygiene was performed with alcohol-based and rub antiseptic. Sterile single use ultrasound gel was used for the procedure during ultrasound guidance. ESTIMATED BLOOD LOSS: 3 mL PROCEDURE DETAILS: Patient's left neck and upper chest were prepped and draped in the usual sterile fashion with 2% chlorhexidine. Preprocedural timeout was performed. Versed and fentanyl were given IV by a radiology nurse who is a trained independent observer dedicated to patient monitoring during moderate sedation under my supervision. 1% lidocaine was infiltrated over the left internal jugular vein for local anesthesia. Ultrasound was used and the left internal jugular vein was found to be patent. Next, under direct ultrasound visualization, the left internal jugular vein was accessed with a 21 gauge micropuncture needle and a 0.018 wire, a respective image was saved. The needle was then exchanged for a micropuncture sheath. Next a suitable position for the subcutaneous tunnel tract was identified and anesthetized with 2% lidocaine with epinephrine. A skin teresa was made at the exit site on the left upper chest and a blunt-tipped tunneler was used to tunnel through the subcutaneous tissue to the venous access site. The 14.5 [place], 23 cm (tip to cuff), dual-lumen dialysis catheter was then pulled through the tunnel with dacron cuff within the subcutaneous tunnel. Next, the 0.018 inch wire and 3 Fr dilator within the micropuncture sheath were removed and a 0.035 J-wire was then advanced into the IVC under direct fluoroscopic visualization. The micropuncture sheath was removed and serial dilation was performed over the wire. Next the peel-away sheath in the tunneled catheter kit was advanced over the wire into the SVC under direct fluoroscopic visualization and the wire and peel-away inner dilator were removed. The 14.5 [place] dialysis catheter was advanced through the peel-away sheath with final tip position in the right atrium. Both of the lumens flush and aspirate briskly and are loaded with heparin. The new tunneled dialysis catheter was anchored to the skin with suture and dressed with a Biopatch, sterile gauze and a Tegaderm. The neck access site was closed with a buried absorbable suture and skin glue. The existing left IJ temporary dialysis catheter was then removed. Manual pressure was held for hemostasis and a sterile dressing was applied. The patient tolerated the procedure well with no immediate complications and was in stable condition at the completion of the procedure. IMPRESSION: Successful placement of a left IJ approach tunneled dialysis catheter. PLAN: The new tunneled dialysis catheter is cleared for use as needed. Please note that the catheter's lumens have been loaded with heparin. I, Dr. Javier Jeong, certify that I was present for the procedure. Larry Moran NP IR ORDERABLES Final Result * NM ABSCESS LOC WHOLE BODY IND (02/02/2025 8:02 AM CDT) Anatomical Region Laterality Modality Nuclear Medicine 02/02/2025 8:02 AM CDT Impressions 02/02/2025 8:10 AM CDT IMPRESSION: No areas of abnormal tracer accumulation to suggest site of an occult infection. Narrative 02/02/2025 8:10 AM CDT EXAM: NM ABSCESS LOC WHOLE BODY IND DATE/TIME OF EXAM: 02/02/2025 8:02 AM REASON FOR EXAM: looking for sources of bacteremia DIAGNOSIS: NSTEMI (non-ST elevated myocardial infarction); Chest pain with high risk for cardiac etiology COMPARISONS: 01/27/2025 PROCEDURE: Following the intravenous administration of autologous WBCs labeled with 0.221 mCi of In-111, planar images of the whole body were obtained in anterior and posterior projections. FINDINGS: Physiologic distribution of tracer is seen in the liver, spleen and bone marrow. No suspicious focal areas of abnormal radiopharmaceutical uptake to suggest site of abscess or infection. Photopenic defects distal in the lower extremities suggesting previous bilateral amputations without abnormal uptake at these sites. Procedure Note Morgan Weller MD - 02/02/2025 EXAM: NM ABSCESS LOC WHOLE BODY IND DATE/TIME OF EXAM: 02/02/2025 8:02 AM REASON FOR EXAM: looking for sources of bacteremia DIAGNOSIS: NSTEMI (non-ST elevated myocardial infarction); Chest pain with high risk for cardiac etiology COMPARISONS: 01/27/2025 PROCEDURE: Following the intravenous administration of autologous WBCs labeled with 0.221 mCi of In-111, planar images of the whole body were obtained in anterior and posterior projections. FINDINGS: Physiologic distribution of tracer is seen in the liver, spleen and bone marrow. No suspicious focal areas of abnormal radiopharmaceutical uptake to suggest site of abscess or infection. Photopenic defects distal in the lower extremities suggesting previous bilateral amputations without abnormal uptake at these sites. IMPRESSION: No areas of abnormal tracer accumulation to suggest site of an occult infection. Karl Staples MD NM ORDERABLES Final Result * HEMODIALYSIS (02/01/2025 1:30 PM CDT) [facility] - 02/01/2025 1:30 PM CDT Trace Mensah MD 02/02/2025 7:49 AM [facility] - Procedure Note Primary Personnel Security Specialist: Dr. Moisés Mensah PROCEDURE: Intermittent Hemodialysis INDICATION: end stage renal disease Procedure: Utilizing the patient's LIJ trialysis line as a vascular access, the patient was initiated on hemodialysis. Dialysis is planned for 4 hours. Blood flow of 400 ml per minute and Dialysate flow of 600 ml per minute were prescribed. The bath used was 2 mEq/L potassium, 3 mEq/L calcium, 140 mEq/L sodium and 35 mEq/L bicarbonate. UF goal: 2L, BP stable. Revaclear 400 hollow fiber dialyzer was used. No heparin was used for anticoagulation. No complications have been encountered to this point. I was present during dialysis, and was available for the entirety of the dialysis treatment. # Compliant with frequency and duration of dialysis: yes Physical Exam: BP 102/64 (BP Location: Left arm, Patient Position (BP): Supine) Pulse 83 Temp 97.9 F (36.6 C) (Oral) Resp 16 Ht 6' 2 (1.88 m) Wt 61.9 kg (136 lb 7.4 oz) SpO2 93% BMI 17.52 kg/m In bed, no acute distress Assesment and Plan: ESRD: post bilateral AKA. Will do HD planned today, on MWF. Still with trialysis line. Blood cultures remain neg from 01/27. Will have interventional radiology place tunneled line tomorrow. NPO midnight. Anemia- below goal, continue on SANJAY Hypotension- chronic in 80s-90s asymptomatic. On midodrine Larry Moran NP [facility] 02/01/25, 1:30 PM Larry Moran NP DIALYSIS ORDERABLES Final Re sult [facility] CLIA# [id number] [address] [place] [address] * PATHOLOGY (02/01/2025 8:30 AM CDT) Only the most recent of3 resultswithin the time period is included. CASE REPORT Surgical Pathology Report Case: [id number] Authorizing Provider: Chidi Escoto DO Collected: 02/01/2025 08:30 AM Ordering Location: [facility] Received: 02/01/2025 09:37 AM Operating Room Pathologist: Wolf Stauffer MD Specimen: Lymph nodes, right 12:35 PM CDT [facility] FINAL DIAGNOSIS A. Lymph node, right axilla, excision - reactive lymph node with probable dermatopathic changes - focal acute inflammation - no tumor or granulomas identified. REV:CLB Wolf Stauffer MD [id number] 12:35 PM CDT [facility] at 1235 CDT DIAGNOSIS COMMENT On the previous biopsy, flow cytometry showed no clonal population and immunostains/KRISTOPHER were unremarkable. Those studies were not repeated on this material. 12:35 PM CDT [facility] GROSS DESCRIPTION A. Received in a container of formalin labeled Reynold -right axillary lymph node is a 1.8 x 1.4 x 1.0 cm lymph node with jolley-pink, homogenous cut surfaces. The lymph node is trisected and submitted entirely in A1-A3. Grossed by: Elva Sherwood MS, PA (ASCP)CM 12:35 PM CDT [facility] OPERATIVE PROCEDURE 1: AXILLARY LYMPH NODE DISSECTION 12:35 PM CDT [facility] CLINICAL INFORMATION None 12:35 PM CDT [facility] COMMENT The PEMRED voice-activated dictation system may have been used in the creation of this report. Inherent to this system is the possibility of errors in syntax, grammar, punctuation, or other areas that could impact interpretation. If there are interpretive questions about the report, please contact the performing pathologist. Unless gross only is specified in the diagnosis, the microscopic examination substantiates the above cited diagnosis. The performance characteristics of all immunohistochemical stains cited in this report (if any) were determined by the [facility] of [facility] in compliance with CLIA'88 regulations. Some of these tests rely on the use of analyte specific reagents and are subject to specific labeling requirements by the FDA. All controls show appropriate reactivity. This testing was developed by the [facility] of [facility]. It has not been cleared or approved by the FDA. The FDA has determined that such clearance or approval is not necessary. 12:35 PM CDT [facility] Tissue (Lymph nodes, right) Collection / Unknown 02/01/2025 8:30 AM CDT 02/01/2025 9:37 AM CDT Chidi Escoto DO PATHOLOGY/CYTOLOGY ORDERABLES Fi nal Result [facility] CLIA # [id number] [address] [place] [address] [place] [address] * TX ANES INSERT ENDOTRACHEAL AIRWAY (02/01/2025 7:30 AM CDT) Narrative Virginia Scott CRNA - 02/01/2025 7:30 AM CDT Virginia Scott CRNA 02/01/2025 7:49 AM Airway Date/Time: 02/01/2025 7:30 AM Location: OR Plan: routine intubation Patient Identity Confirmed by: Verbally with patient and armband Airway: not difficult Staffing Performed: ANJELICA/CAA Authorized by: Trace White MD Performed by: Virginia Scott CRNA Indications and Patient Condition: Indications for Airway Management: Anesthesia Sedation Level: general anesthesia Preoxygenated: yes Patient Position: Sniffing Plan to extubate at end of case: Yes Final Airway Details: Final Airway Type: Endotracheal airway ETT Cuffed: Yes Technique Used for Successful ETT Placement: Direct laryngoscopy Devices/Methods Used in Placement: Modified RSI, cricoid pressure, intubating stylet and anterior pressure/BURP Blade Type: curved blade Blade Size: 3 Insertion Site: Oral ETT Size (mm): 8.0 Measured from: Teeth ETT to Teeth (cm): 22 Tube secured with: Tape Placement Verified by: auscultation, end tidal CO2 and chest rise Cormack-Lehane Classification: Grade I - full view of glottis Number of Attempts at Approach: 1 Additional Procedure Information: atraumatic and dentition unchanged (secured; teeth/mouth as per preop (missing teeth/poor dentition)) Trace White MD PROCEDURE/MINOR SURGICAL ORDE RABHUSSAIN Final Result * (ABNORMAL) PROTIME-INR (02/01/2025 3:53 AM CDT) Only the most recent of4 resultswithin the time period is included. PROTIME 16.2(H) 12.7 - 14.9 Seconds 02/01/2025 4:09 AM CDT [facility] [place] [facility] INR 1.2 0.8 - 1.2 02/01/2025 4:09 AM CDT [facility] Blood Venipuncture / Unknown 02/01/2025 3:53 AM CDT 02/01/2025 3:58 AM CDT Narrative [facility] - 02/01/2025 4:09 AM CDT Expected Values for INR: DVT/PE Goal INR 2.5; range 2.0 - 3.0 Valve Replacement Tissue Goal INR 2.5; range 2.0 - 3.0 Valve Replacement Mechanical Goal INR 3.0; range 2.5 - 3.5 POST-TN Goal INR 2.5; range 2.0 - 3.0 or Goal INR 3.0; range 2.5 - 3.5 Atrial Fibrillation Goal INR 2.5; range 2.0 - 3.0 Ischemic Stroke Goal INR 2.5; range 2.0 - 3.0 us Neena LAURAP HEMATOLOGY ORDERABLES Final Result Performing Organization Address City/[facility]/ZIP Co de Phone Number [facility] CLIA # [id number] [address] [id number] * CK (02/01/2025 3:53 AM CDT) Only the most recent of2 resultswithin the time period is included. CK 40 39 - 308 U/L 02/01/2025 3:31 PM CDT [facility] Blood Venipuncture / Unknown 02/01/2025 3:53 AM CDT 02/01/2025 3:58 AM CDT us Karl Staples MD CHEMISTRY ORDERABLES Final Resul t [facility] CLIA # [id number] [address] [address] [place], [place] [address] * HEMODIALYSIS (01/29/2025 10:50 AM CDT) Narrative Jos Stover RN - 01/29/2025 10:50 AM CDT Jos Stover RN 01/29/2025 10:54 AM Renal Replacement Therapy Summary Procedure: Hemodialysis in 3F Dialyzer: RVC Access: Left IJ trialysis catheter Blood Flow: 400 ml/min Procedure Time: 3.5 hours Blood Volume Processed: 81.6 liters Ultrafiltration Volume: 2500 ml with 500 ml rinse back Anticoagulation: none (ordered) Post VS: BP:105/74 Pulse: 86 Temp:96.7 SpO2: 97 Dialyzer Cleared(%): 99% with no clotting Complications: none Report sent to: Nathan RN on 4C via secure chat us Larry Moran PREFITTER DIALYSIS ORDERABLES Final Re sult * FLOW CYTOMETRY PANEL (01/29/2025 4:29 AM CDT) Only the most recent of2 resultswithin the time period is included. FLOW CYTOMETRY INTERP See Separate Pathology Report 01/29/2025 2:14 PM CDT [facility] Blood BLOOD SPECIMEN / Unknown Venipuncture / Unknown 01/29/2025 4:29 AM CDT 01/29/2025 4:35 AM CDT us Ronit Nicole MD PATHOLOGY/CYTOLOGY ORDERABLE S Final Result [facility] # [id number] [address] [place] [address] * FLOW CYTOMETRY REPORT (01/29/2025 4:29 AM CDT) Only the most recent of2 resultswithin the time period is included. CASE REPORT Surgical Pathology Report Case: [id number] Authorizing Provider: Ronit Nicole MD Collected: 01/29/2025 04:29 AM Ordering Location: [facility] Received: 01/29/2025 08:05 AM 4C Medical Pathologist: Gerard Orr MD Specimen: Blood 1:46 PM CDT [facility] FINAL DIAGNOSIS FLOW CYTOMETRIC ANALYSIS SPECIMEN: - Peripheral blood INTERPRETATION: - No diagnostic immunophenotypic abnormalities detected Gerard Orr MD [id number] 1:46 PM CDT [facility] at 1346 CDT DIAGNOSIS COMMENT No immunophenotypic evidence of a lymphoproliferative disorder, acute leukemia or circulating blasts is identified. Myeloproliferative neoplasms and myelodysplastic syndromes may not show antigenic abnormalities on myeloid cells and cannot be ruled out by flow cytometry. Please correlate the result with morphological findings, other pertinent laboratory data and clinical information. 1:46 PM CDT [facility] IMMUNOPHENOTYPIC ANALYSIS WBC Count: 11.12 x 10(3)/uL Lymphocytes are 19.6% of analyzed events. The T-cells (81.4% of lymphoid cells) show a CD4/CD8 ratio of about 0.8 without overt phenotypic abnormality. NK-cells (12.0% of lymphoid cells) are unremarkable. Mature B-cells (4.0% of lymphoid cells) are polyclonal (kappa:lambda 1.4). Markers analyzed: CD2, CD3, CD4, CD5, CD7, CD8, CD10, CD14, CD16, CD19, CD20, CD23, CD34, CD38, CD45, CD56, CD117, surface kappa, surface lambda (total = 19) 1:46 PM CDT [facility] COMMENT Flow cytometry was performed at [facility] ([address] [place] [address], 2nd floor, room [address]3631 in [place], [place]) and interpreted in-house at [facility] in [facility]. 1:46 PM CDT [facility] Blood BLOOD SPECIMEN / Unknown Venipuncture / Unknown 01/29/2025 4:29 AM CDT 01/29/2025 8:05 AM CDT us Ronit Nicole MD PATHOLOGY/CYTOLOGY ORDERABLE S Final Result [facility] CLIA # [id number] [address] [place] [id number] * HIV DETECTION W/REFLX CONFIRMATION (01/28/2025 8:49 PM CDT) HIV-1 AND 2 ABS AND HIV-1 AG Non-reacti ve Non-React ford 01/28/2025 10:47 PM CDT [facility] Blood Venipuncture / Unknown 01/28/2025 8:49 PM CDT 01/28/2025 9:53 PM CDT us Ronit Nicole MD CHEMISTRY ORDERABLES Final R esult [facility] CLIA # [id number] [id number] [place], [place] [id number] * IV CATHETER CULTURE (01/28/2025 2:15 PM CDT) CULTURE No growth 01/30/2025 9:33 AM CDT [facility] IV Cath tip (Hemodialysis Catheter) Collection / Unknown 01/28/2025 2:15 PM CDT 01/28/2025 2:18 PM CDT us Javier Jeong MD MICROBIOLOGY - GENERAL ORDERABLE S Final Result Performing Organization Address City/[facility]/ZIP Co de Phone Number [facility] CLIA # [id number] [address] [facility] [place], [place] [id number] * ECHO TRANSESOPHAGEAL W DOPPLER AND COLOR FLOW (01/28/2025 9:20 AM CDT) EJECTION FRACTION 55 INTERFACE SYSTEM 01/28/2025 8:21 AM CDT Narrative INTERFACE SYSTEM - 01/28/2025 11:47 AM CDT [facility] Echocardiography Laboratory [address] [place] [address] Transesophageal Echocardiography Patient: Turner Samuel Study ID: BARI Renee Gender: M : 1990 Age: 34 Room: [facility] Study 01/28/2025 Inpatient Date: Status: Study 08:21:[address] [facility] #: [id number] Time: Ordering:Karl Staples Floor Associate: LVO Indications and History: Acute Endocarditis. Summary and Conclusion: - Left ventricle: Global systolic function is normal. For Epic reporting: the left ventricular ejection fraction is 55% by visual assessment. - Right ventricle: The cavity size is upper normal to mildly increased. Systolic function is normal. - Left atrium: There is no evidence of a thrombus in the atrial cavity or appendage. - Right atrium: The atrium is dilated. There is no evidence of a thrombus in the atrial cavity or appendage. - Atrial septum: There is a patent foramen ovale. Agitated saline contrast study shows [id number] shunt. - Aortic valve: The valve is trileaflet. The leaflets are mildly thickened and mildly calcified. - Mitral valve: The annulus is mildly calcified. There is trivial regurgitation. - Tricuspid valve: There is mild regurgitation. - Little change compared to the prior echo. Procedure information: Comparison is made to the study of 11/17/2024. Consent: The risks, benefits, and alternatives to the procedure were explained to the patient and consent was obtained. Procedure: The patient arrived at the laboratory in the fasting state. Intravenous access was obtained. Surface ECG leads, automatic cuff blood pressure measurements, and pulse oximetric signals were monitored. Moderate sedation was administered by nursing staff. Transesophageal echocardiography was performed. Topical anesthesia was obtained using benzocaine spray and viscous lidocaine. An adult multiplane transesophageal probe was inserted by the attending operating room registered nurse without difficulty. Image quality was adequate. The transesophageal probe was removed. Study completion: The patient tolerated the procedure well. Sedation began at 833 and ended at 915 There were no complications. Administered medications: Midazolam, 2mg, IV. Fentanyl, 25mcg, by intracardiac injection. Diphenhydramine, 50mg, IV. Study components: 2D, 3D, complete spectral Doppler, color Doppler, and agitated saline. Height: 188cm. Height: 74in. Weight: 60.5kg. Weight: 133.4lb. BMI: 17.1kg/m^2. BSA: 1.76m^2. Blood pressure: 127/90 Study date: 01/28/2025. Study time: 08:21 AM. Location: Special procedures room. Cardiac Anatomy: LEFT VENTRICLE: Global systolic function is normal. For Epic reporting: the left ventricular ejection fraction is 55% by visual assessment. The ratio of systolic to diastolic pulmonary vein flow is within the normal range (systolic predominant). RIGHT VENTRICLE: The cavity size is upper normal to mildly increased. Systolic function is normal. LEFT ATRIUM: The atrium is normal in size. There is no evidence of a thrombus in the atrial cavity or appendage. Appendage: The appendage is normal-sized. RIGHT ATRIUM: The atrium is dilated. There is no evidence of a thrombus in the atrial cavity or appendage. ATRIAL SEPTUM: There is a patent foramen ovale. Agitated saline contrast study shows [id number] shunt. AORTIC VALVE: The valve is trileaflet. The leaflets are mildly thickened and mildly calcified. Cusp separation is normal. There is no significant regurgitation. MITRAL VALVE: The annulus is mildly calcified. Leaflet separation is normal. There is trivial regurgitation. TRICUSPID VALVE: Structurally normal valve. Leaflet separation is normal. There is mild regurgitation. PULMONIC VALVE: The valve appears to be grossly normal. There is no regurgitation. PERICARDIUM: There is no pericardial effusion. AORTA: Aorta: No evidence of atheroma. Aortic root: The root is normal-sized. Ascending aorta: The vessel is normal-sized. Aortic arch: The vessel is normal-sized. Descending aorta: The vessel is normal-sized. PULMONARY ARTERY: The main pulmonary artery is normal-sized. Measurements Aortic root Value Root diam 3.2 cm Root diam/bsa 1.8 cm/m^2 Legend: (L) and (H) chau values outside specified reference range. [facility] are accredited with the [employer]reditation Commission - Echocardiography. Prepared and Electronically Authenticated Ras Trejo Confirmed 01/28/2025 11:47 Procedure Note Ras Trejo MD - 01/28/2025 [facility] Echocardiography Laboratory [address] [place] [id number] Transesophageal Echocardiography Patient: Turner Samuel Study ID: ECHOTRANSESOPHA L Gender: Venkatesh : 1990 Age: 34 Room: [facility] Study 01/28/2025 Pt Inpatient Date: Status: Study 08:21:09 AM CSN #: [id number] Time: Ordering:Karl Staples Floor Associate: LVO Indications and History: Acute Endocarditis. Summary and Conclusion: - Left ventricle: Global systolic function is normal. For Epic reporting:the left ventricular ejection fraction is 55% by visual assessment. - Right ventricle: The cavity size is upper normal to mildly increased. Systolic function is normal. - Left atrium: There is no evidence of a thrombus in the atrial cavityor appendage. - Right atrium: The atrium is dilated. There is no evidence of a thrombusin the atrial cavity or appendage. - Atrial septum: There is a patent foramen ovale. Agitated salinecontrast study shows [id number]-[id number] shunt. - Aortic valve: The valve is trileaflet. The leaflets are mildly thickenedand mildly calcified. - Mitral valve: The annulus is mildly calcified. There is trivial regurgitation. - Tricuspid valve: There is mild regurgitation. - Little change compared to the prior echo. Procedure information: Comparison is made to the study of 11/17/2024. Consent: The risks, benefits, and alternatives to the procedure were explained to the patient and consent was obtained. Procedure: Thepatient arrived at the laboratory in the fasting state. Intravenous access was obtained. Surface ECG leads, automatic cuff blood pressure measurements,and pulse oximetric signals were monitored. Moderate sedation wasadministered by nursing staff. Transesophageal echocardiography was performed. Topical anesthesia was obtained using benzocaine spray and viscous lidocaine. Anadult multiplane transesophageal probe was inserted by the attendingcardiologist without difficulty. Image quality was adequate. The transesophageal probewas removed. Study completion: The patient tolerated the procedure well. Sedation began at 833 and ended at 915 There were no complications. Administered medications: Midazolam, 2mg,IV. Fentanyl, 25mcg, by intracardiac injection. Diphenhydramine, 50mg, IV. Study components: 2D, 3D, complete spectral Doppler, color Doppler,and agitated saline. Height: 188cm. Height: 74in. Weight: 60.5kg.Weight: 133.4lb. BMI: 17.1kg/m^2. BSA: 1.76m^2. Blood pressure:127/90 Study date: 01/28/2025. Study time: 08:21 AM. [facility] Cardiac Anatomy: LEFT VENTRICLE: Global systolic function is normal. For [facility] reporting:the left ventricular ejection fraction is 55% by visual assessment. The ratioof systolic to diastolic pulmonary vein flow is within the normal range(systolic predominant). RIGHT VENTRICLE: The cavity size is upper normal to mildly increased. Systolic function is normal. LEFT ATRIUM: The atrium is normal in size. There is no evidence of a thrombus in the atrial cavity or appendage. Appendage: The appendage is normal-sized. RIGHT ATRIUM: The atrium is dilated. There is no evidence of a thrombusin the atrial cavity or appendage. ATRIAL SEPTUM: There is a patent foramen ovale. Agitated salinecontrast study shows [id number]-[id number] shunt. AORTIC VALVE: The valve is trileaflet. The leaflets are mildly thickenedand mildly calcified. Cusp separation is normal. There is no significant regurgitation. MITRAL VALVE: The annulus is mildly calcified. Leaflet separation isnormal. There is trivial regurgitation. TRICUSPID VALVE: Structurally normal valve. Leaflet separation isnormal. There is mild regurgitation. PULMONIC VALVE: The valve appears to be grossly normal. There is no regurgitation. PERICARDIUM: There is no pericardial effusion. AORTA: Aorta: No evidence of atheroma. Aortic root: The root is normal-sized. Ascending aorta: The vessel is normal-sized. Aortic arch: The vessel is normal-sized. Descending aorta: The vessel is normal-sized. PULMONARY ARTERY: The main pulmonary artery is normal-sized. Measurements Aortic root Value Root diam 3.2 cm Root diam/bsa 1.8 cm/m^2 Legend: (L) and (H) chau values outside specified reference range. [facility] are accredited with the[employer] Accreditation Commission - Echocardiography. Prepared and Electronically Authenticated Ras Trejo Confirmed 01/28/2025 11:47 Karl Staples MD US ORDERABLES Final Result Performing Organization Address City/[facility]/ZIP Co de Phone Number INTERFACE SYSTEM Refer to clinic/hospital department * BLOOD CULTURE (01/27/2025 3:29 PM CDT) Only the most recent of8 resultswithin the time period is included. BLOOD CULTURE No growth 02/01/2025 5:57 PM CDT [facility] Blood (Peripheral) Venipuncture / Unknown 01/27/2025 3:29 PM CDT 01/27/2025 3:44 PM CDT Karl Staples MD MICROBIOLOGY - GENERAL ORDERABLE S Final Result Performing Organization Address [facility]/ZIP Co de Phone Number [facility] CLIA # [id number] [address] [place] [address] [place] [address] * CT CHEST ABDOMEN PELVIS WO CONT (01/27/2025 1:38 PM CDT) Anatomical Region Laterality Modality Chest Computed Tomogra phy 01/27/2025 1:33 PM CDT Impressions 01/27/2025 1:53 PM CDT IMPRESSION: Please see below. Exam: CT CHEST ABDOMEN PELVIS WO CONT Date/Time of Exam: 01/27/2025 1:38 PM REASON FOR EXAM: fever and leukocytosis. DIAGNOSIS: NSTEMI (non-ST elevated myocardial infarction); Chest pain with high risk for cardiac etiology. Technique: CT of the chest, abdomen, and pelvis was performed without the administration of intravenous contrast. Findings: Examination is limited by noncontrast technique. Comparison is made to prior exam performed 12/11/2024. CHEST: There is segmental consolidation in the left lung base with mild subsegmental atelectasis is seen in the lung bases elsewhere. The upper lobes are clear. There is no pneumothorax or significant pleural effusion. A tunneled hemodialysis catheter and tunnel powerline are seen over the left internal jugular approach and ending at the cavoatrial junction. The heart size is normal with some mild aortic and mitral valve annular calcifications. There has been interval increase in bilateral axillary lymphadenopathy for example right-sided lymph nodes measure up to 1.7 cm in short axis dimension and left-sided lymph nodes measure up to 1.8 cm. There is diffuse body wall edema. Mild thoracic spondylosis is again identified. ABDOMEN: The liver, gallbladder, and biliary tree are grossly unremarkable. Significant splenomegaly is again identified with the spleen measuring up to 18.1 cm in craniocaudal dimension, increased from 16.7 cm previously. The adrenal glands are unremarkable. The pancreas is atrophied. There is moderate distention of the stomach with food and there is moderate distention of the colon with stool. Right hemicolectomy changes are noted within the ileocolic anastomosis in the right anterior abdomen. Small bowel loops are unremarkable allowing for nonrotation/chronic malrotation, similar to the prior examination. There is no pathologic mesenteric or retroperitoneal adenopathy. Chronic atrophy of the kidneys, suggestive of chronic renal disease with diffuse atherosclerotic calcifications are identified. Scattered peripheral calcifications in the arterial structures most likely represent sequelae of chronic diabetes. The lumbar spine is intact. Pelvis: There is no free fluid in the pelvis. The bladder is distended. Calculi in the pelvis are most likely represent phleboliths. The prostate is unremarkable. The inguinal lymph nodes remain significantly enlarged, similar to the prior exam. The bony pelvis is intact. IMPRESSION: 1. Body wall edema consistent with anasarca and/or volume overload. 2. Interval increase in axillary adenopathy and interval progression of splenomegaly, concerning for progression of a lymphoproliferative disorder. Inguinal lymphadenopathy is stable to minimally increased as well. 3. Segmental consolidation in the left lower lobe subsegmental atelectasis seen elsewhere in the lung bases. Some degree of superimposed pneumonia is not entirely excluded. 4. Additional incidental findings as above. Narrative Procedure Note Javier Easton MD - 01/27/2025 IMPRESSION: Please see below. Exam: CT CHEST ABDOMEN PELVIS WO CONT Date/Time of Exam: 01/27/2025 1:38 PM REASON FOR EXAM: fever and leukocytosis. DIAGNOSIS: NSTEMI (non-ST elevated myocardial infarction); Chest pain with high risk for cardiac etiology. Technique: CT of the chest, abdomen, and pelvis was performed without the administration of intravenous contrast. Findings: Examination is limited by noncontrast technique. Comparison is made to prior exam performed 12/11/2024. CHEST: There is segmental consolidation in the left lung base with mild subsegmental atelectasis is seen in the lung bases elsewhere. The upper lobes are clear. There is no pneumothorax or significant pleural effusion. A tunneled hemodialysis catheter and tunnel powerline are seen over the left internal jugular approach and ending at the cavoatrial junction. The heart size is normal with some mild aortic and mitral valve annular calcifications. There has been interval increase in bilateral axillary lymphadenopathy for example right-sided lymph nodes measure up to 1.7 cm in short axis dimension and left-sided lymph nodes measure up to 1.8 cm. There is diffuse body wall edema. Mild thoracic spondylosis is again identified. ABDOMEN: The liver, gallbladder, and biliary tree are grossly unremarkable. Significant splenomegaly is again identified with the spleen measuring up to 18.1 cm in craniocaudal dimension, increased from 16.7 cm previously. The adrenal glands are unremarkable. The pancreas is atrophied. There is moderate distention of the stomach with food and there is moderate distention of the colon with stool. Right hemicolectomy changes are noted within the ileocolic anastomosis in the right anterior abdomen. Small bowel loops are unremarkable allowing for nonrotation/chronic malrotation, similar to the prior examination. There is no pathologic mesenteric or retroperitoneal adenopathy. Chronic atrophy of the kidneys, suggestive of chronic renal disease with diffuse atherosclerotic calcifications are identified. Scattered peripheral calcifications in the arterial structures most likely represent sequelae of chronic diabetes. The lumbar spine is intact. Pelvis: There is no free fluid in the pelvis. The bladder is distended. Calculi in the pelvis are most likely represent phleboliths. The prostate is unremarkable. The inguinal lymph nodes remain significantly enlarged, similar to the prior exam. The bony pelvis is intact. IMPRESSION: 1. Body wall edema consistent with anasarca and/or volume overload. 2. Interval increase in axillary adenopathy and interval progression of splenomegaly, concerning for progression of a lymphoproliferative disorder. Inguinal lymphadenopathy is stable to minimally increased as well. 3. Segmental consolidation in the left lower lobe subsegmental atelectasis seen elsewhere in the lung bases. Some degree of superimposed pneumonia is not entirely excluded. 4. Additional incidental findings as above. Karl Staples MD CT ORDERABLES Final Result * (ABNORMAL) HEMOGLOBIN AND HEMATOCRIT (01/22/2025 8:24 PM CDT) Only the most recent of3 resultswithin the time period is included. HEMOGLOBIN 8.0(L) 14.0 - 18.0 g/dL 01/22/2025 8:36 PM CDT [facility] HEMATOCRIT 25.6(L) 41.0 - 53.0 % 01/22/2025 8:36 PM CDT [facility] Blood Venipuncture / Unknown 01/22/2025 8:24 PM CDT 01/22/2025 8:29 PM CDT Cristiana Decker MD HEMATOLOGY ORDERABLES Fin al Result [facility] # [id number] [address] [address] [place] [address] * HEMODIALYSIS (01/22/2025 5:31 PM CDT) Narrative Jos Stover RN - 01/22/2025 5:31 PM CDT Jos Stover RN 01/22/2025 5:34 PM Renal Replacement Therapy Summary Procedure: Hemodialysis in 3F Dialyzer: RVC Access: Left tunneled IJ Blood Flow: 400 ml/min Procedure Time: 3 hours 40 minutes Blood Volume Processed: 85.3 liters Ultrafiltration Volume: 2300 ml with 500 ml rinse back and 200 ml albumin Anticoagulation: none (ordered) PreWeight: 65.6 kg PostWeight: 63.4 kg Post VS: BP:142/91 Pulse: 86 Temp:97.8 SpO2: 98 Dialyzer Cleared(%): 98% with mild clotting Complications: none Report sent to: [facility] on 4C via secure chat us Cristiana Decker MD DIALYSIS ORDERABLES Final Result * TRANSFUSE RED BLOOD CELLS (01/21/2025 10:05 PM CDT) us Cristiana Decker MD BLOOD TRANSFUSION ORDERAB LES Final Result * TYPE AND SCREEN (01/21/2025 3:35 PM CDT) ABO GROUP AB 01/21/2025 5:11 PM CDT [facility] RH (D) TYPE Positive 01/21/2025 5:11 PM CDT [facility] ANTIBODY SCREEN Negative 01/21/2025 5:11 PM CDT [facility] Blood Venipuncture / Unknown 01/21/2025 3:35 PM CDT 01/21/2025 3:36 PM CDT us Cristiana Decker MD BLOOD BANK ORDERABLES Rafy aileen Result - Final [facility] CLIA#[id number] [address] [place] [address], [place] [phone] * PREPARE RED BLOOD CELLS (01/21/2025 3:20 PM CDT) COMPONENT TYPE [id number] [facility] COMPONENT IDENTIFICATION [id number] [facility] UNIT ABO AB [facility] UNIT RH POS [facility] CROSSMATCH Compatible [facility] COMPONENT STATUS Transfused [facility] COMPONENT EXPIRATION DATE/TIME [facility] COMPONENT CODING SYSTEM 8400 [facility] VOLUME, BLOOD PRODUCT 350 [facility] Other, specify 01/21/2025 3: 20 PM CDT us Cristiana Decker MD LAB TRANSFUSION ORDERABLE S Edited Result - Final [facility] CLIA#[id number] [address] [place] [address], [place] [phone] * (ABNORMAL) MANUAL DIFFERENTIAL (01/21/2025 3:19 AM CDT) Only the most recent of4 resultswithin the time period is included. SEGMENTED NEUTROPHILS 72(H) 36 - 66 % 01/21/2025 4:51 AM CDT [facility] LYMPHOCYTES RELATIVE 16(L) 24 - 44 % 01/21/2025 4:51 AM CDT [facility] MONOCYTES RELATIVE 1(L) 4 - 10 % 2024 4:51 AM CDT [facility] EOSINOPHILS RELATIVE 8(H) 0 - 3 % 01/21/2025 4:51 AM CDT [facility] METAMYELOCYTES RELATIVE 1 0 - 1 % 01/21/2025 4:51 AM CDT [facility] MYELOCYTES - REL (DIFF) 2(H) 0 - 1 % 01/21/2025 4:51 AM CDT [facility] PLATELET EST. Adequate 01/21/2025 4:51 AM CDT [facility] NEUTROPHILS ABSOLUTE COUNT 8.50(H) 2.00 - 8.00 K/uL 01/21/2025 4:51 AM CDT [facility] LYMPHOCYTES ABSOLUTE 1.89 1.20 - 4.00 K/uL 01/21/2025 4:51 AM CDT [facility] ATYPICAL LYMPHS ABSOLUTE 01/21/2025 4:51 AM CDT [facility] MONOCYTES ABSOLUTE 0.12 0.10 - 0.60 K/uL 01/21/2025 4:51 AM T [facility] EOSINOPHILS ABSOLUTE 0.94(H) 0.00 - 0.70 K/uL 01/21/2025 4:51 AM CDT [facility] ANISOCYTOSIS 1+ /hpf 01/21/2025 4:51 AM T [facility] POIKILOCYTES 1+ /hpf 01/21/2025 4:51 AM T [facility] POLYCHROMASIA 1+ /hpf 01/21/2025 4:51 AM T [facility] BASOPHILIC STIPPLING 1+ /hpf 01/21/2025 4:51 AM T [facility] TOTAL CELLS COUNTED IN DIFF 100 01/21/2025 4:51 AM T [facility] Blood Venipuncture / Unknown 01/21/2025 3:19 AM CDT 01/21/2025 3:22 AM CDT Shanae Estevez NP HEMATOLOGY ORDERABLES COM Final Result [facility] CLIA # [id number] [address] [place] [address] * LACTIC ACID (01/20/2025 8:26 AM CDT) Only the most recent of2 resultswithin the time period is included. LACTIC ACID 1.8 <=2.0 mmol/L 01/20/2025 9:03 AM CDT [facility] Blood Venipuncture / Unknown 01/20/2025 8:26 AM CDT 01/20/2025 8:31 AM CDT Cristiana Decker MD CHEMISTRY ORDERABLES [place] l Result [facility] CLIA # [id number] [address] [place] [address] * (ABNORMAL) BLOOD CULTURE MRSA/MSSA PCR PANEL (01/20/2025 8:07 AM CDT) [facility] MRSA/MSSA PCR Staph. aureus detected, methicillin resistant (MRSA)(A) No Staph aureus detected 01/22/2025 1:00 PM CDT [facility] Comment:In polymicrobial spe cimens, methicillin resistance may not be detected from the Staphylococcus (or S. aureus) that was detected or may be from only one of multiple Staphylococcus species that may be present in the specimen. Subculture and susceptibility testing are required in order to assign a resistant or sensitive phenotype to each isolate recovered from the blood culture sample. Blood (Peripheral) Venipuncture / Unknown 01/20/2025 8:07 AM CDT 01/20/2025 8:15 AM CDT Narrative [facility] - 01/22/2025 1:00 PM CDT This test is intended for the detection of Staphylococcus aureus (SA) and methicillin-resistant Staphylococcus aureus (MRSA) DNA directly from positive blood cultures. This test was developed and its performance characteristics determined by [facility]. It has not been cleared by U.S. Food and Drug Administration. The FDA has determined that such clearance or approval is not necessary. This test is used for clinical purposes. It should not be regarded as investigational or for research. This laboratory is certified under the Clinical Laboratory Improvement Amendments of 1988 (CLIA-88) as qualified to perform high complexity clinical laboratory testing. Preet Tidwell DO MICROBIOLOGY - GENERAL ORDERABL ES Final Result Performing Organization Address City/[facility]/ZIP Co de Phone Number [facility] CLIA # [id number] [address] [place] [address] * (ABNORMAL) BRAIN NATRIURETIC PEPTIDE, BNP OR PROBNP (01/20/2025 4:05 AM CDT) [facility] PROBNP, N TERMINAL 31,641(H) 0 - 125 pg/mL 01/20/2025 4:49 AM CDT [facility] Comment: INTERPRETIVE COMMENT based on diagnosis: Diagnostic NT pro-BNP cutoffs for Heart Failure in the absence of renal failure is suggested for the following ranges <75 years: <125 pg/mL >=75 years: <450 pg/mL Exclusionary rule out cut-point for Acute Decompensated Heart Failure(ADHF) All ages: <300 pg/mL Diagnostic NT pro-BNP cutoffs for Acute Decompensated Heart Failure(ADHF) in the absence of renal failure is suggested for the following ages <50 years: > 450 pg/mL 50-75 years: > 900 pg/mL >75 years: >1800 pg/mL Blood Venipuncture / Unknown 01/20/2025 4:05 AM CDT 01/20/2025 4:13 AM CDT Juan Ramon Polanco MD CHEMISTRY ORDERABLES Fi nal Result [facility] CLIA # [id number] [address] [place] [address] [place] [address] * (ABNORMAL) BLOOD GAS ARTERIAL (01/20/2025 1:03 AM CDT) [facility] PH BLOOD POC 7.40 7.35 - 7.45 01/20/2025 1:03 AM CDT [facility] PCO2 POC 47(H) 35 - 45 mm Hg 01/20/2025 1:03 AM CDT [facility] PO2 POC 74(L) 80 - 105 mm Hg 01/20/2025 1:03 AM CDT [facility] HCO3 (CALC) POC 29(H) 22 - 26 mmol/L 01/20/2025 1:03 AM CDT [facility] HEMOGLOBIN POC 8.5(L) 12.0 - 18.0 g/dL 01/20/2025 1:03 AM [facility] BASE EXCESS POC 4(H) -2 - 3 mmol/L 01/20/2025 1:03 AM [facility] O2 SATURATION POC 97 95 - 98 % 01/20/2025 1:03 AM [facility] SODIUM POC 135(L) 138 - 146 mmol/L 01/20/2025 1:03 AM [facility] POTASSIUM POC 6.5(HH) 3.5 - 4.9 mmol/L 01/20/2025 1:03 AM [facility] HEMATOCRIT POC 26(L) 38 - 51 % 01/20/2025 1:03 AM [facility] PH TEMP CORRECT 7.40 7.35 - 7.45 01/20/2025 1:03 AM [facility] PCO2 TEMP CORRECT 47(H) 35 - 45 mm Hg 01/20/2025 1:03 AM [facility] PO2 TEMP CORRECT 74(L) 80 - 105 mm Hg 01/20/2025 1:03 AM [facility] SPECIMEN SOURCE, GASES POC Arterial 01/20/2025 1:03 AM [facility] CRITICALTO POC GRAHAM ALANNAH RN 01/20/2025 1:03 AM [facility] NAME POC [id number] 01/20/2025 1:03 AM [facility] RESULTS POC Y 01/20/2025 1:03 AM [facility] TIME POC 104 01/20/2025 1:03 AM [facility] CALCIUM IONIZED POC 4.3(L) 4.8 - 5.2 mg/dL 01/20/2025 1:03 AM [facility] TCO2 (CALC) POC 31(H) 23 - 27 mmol/L 01/20/2025 1:03 AM [facility] PUNC SITE POC ART PUNCT 01/20/2025 1:03 AM CDT [facility] PATIENT'S TEMPERATURE POC 37.0 degrees 01/20/2025 1:03 AM CDT [facility] Blood, arterial 01/20/2025 1 :03 AM CDT 01/20/2025 1:08 AM CDT Juan Ramon Polanco MD ABG ORDERABLES Final R esult [facility] CLIA # [id number] [address] [address] [place] [address] * XR CHEST PA OR AP 1 VW (01/20/2025 12:57 AM CDT) Only the most recent of4 resultswithin the time period is included. Anatomical Region Laterality Modality Chest Computed Radiogr aphy 01/20/2025 12:5 7 AM CDT Impressions 01/20/2025 1:03 AM CDT IMPRESSION: See below. EXAMINATION: XR CHEST PA OR AP 1 VW CLINICAL HISTORY: ASSOCIATED DIAGNOSIS: Hypoxia ORDERING PROVIDER: JUAN RAMON POLANCO TECHNNATHAN NOTE: COMPARISON: January 12, 2025 FINDINGS/IMPRESSION: Lines, tubes, and devices: Left subclavian approach central catheters x2. Low lung volumes with bronchovascular crowding and bibasilar likely atelectasis. No significant effusion or pneumothorax. Heart size within normal limits. Narrative Procedure Note Tyler Diez MD - 01/20/2025 IMPRESSION: See below. EXAMINATION: XR CHEST PA OR AP 1 VW CLINICAL HISTORY: ASSOCIATED DIAGNOSIS: Hypoxia ORDERING PROVIDER: JUAN RAMON POLANCO TECHNNATHAN NOTE: COMPARISON: January 12, 2025 FINDINGS/IMPRESSION: Lines, tubes, and devices: Left subclavian approach central catheters x2. Low lung volumes with bronchovascular crowding and bibasilar likely atelectasis. No significant effusion or pneumothorax. Heart size within normal limits. Juan Ramon Polanco MD DIAGNOSTIC IMAGING ORDE RABLES Final Result * TX ANES INSERT ENDOTRACHEAL AIRWAY (01/19/2025 7:52 AM CDT) Narrative Carolyn Mills (Student), RN - 01/19/2025 7:52 AM CDT Carolyn Mills (Student), RN 01/19/2025 7:59 AM Airway Date/Time: 01/19/2025 7:52 AM Location: OR Plan: routine intubation Patient Identity Confirmed by: Verbally with patient and armband Staffing Performed: Student NA/AA Authorized by: Sandy Healy MD Performed by: Carolyn Mills (Student), RN Senior Office Assistant: Maggy Greenfield CRNA Indications and Patient Condition: Indications for Airway Management: Anesthesia Sedation Level: general anesthesia Preoxygenated: yes Patient Position: Sniffing Mask Difficulty Assessment: 1 - vent by mask Plan to extubate at end of case: Yes Final Airway Details: Final Airway Type: Endotracheal airway ETT Cuffed: Yes Cuff Volume (mL): 10 Technique Used for Successful ETT Placement: Video laryngoscopy Devices/Methods Used in Placement: Intubating stylet Reason for advanced technique: intraoperative decision Blade Size: 3 Insertion Site: Oral ETT Size (mm): 7.5 Video Laryngoscopy Devices: Sanz Measured from: Teeth ETT to Teeth (cm): 22 Tube secured with: Tape Placement Verified by: auscultation, end tidal CO2 and chest rise Cormack-Lehane Classification: Grade I - full view of glottis Number of Attempts at Approach: 1 Additional Procedure Information: atraumatic and dentition unchanged Sandy Healy MD PROCEDURE/MINOR SURGICAL ORDE RABLES Final Result * (ABNORMAL) PTT (01/19/2025 5:50 AM CDT) PTT 43.3(H) 24.8 - 37.2 seconds 01/19/2025 6:36 AM CDT [facility] [place] [facility] Blood Venipuncture / Unknown 01/19/2025 5:50 AM CDT 01/19/2025 6:14 AM CDT Narrative [facility] [place] [facility] - 01/19/2025 6:36 AM CDT Therapeutic Range: Hi-level PE/DVT heparin protocol 80.1 - 95.0 sec Lo-level PE/DVT heparin protocol 70.1 - 85.0 sec Cardiac Heparin Protocol 70.1 - 100.0 sec us Slim Brown NP HEMATOLOGY ORDERABLES Final Result [facility] # [id number] [address] [address] [place] [address] * HEMODIALYSIS (01/18/2025 2:31 PM CDT) Narrative [facility] - 01/18/2025 2:31 PM CDT Trace Mensah MD 01/19/2025 8:11 AM [facility] - Procedure Note Primary Personnel Security Specialist: Dr. Moisés Mensah PROCEDURE: Intermittent Hemodialysis INDICATION: end stage renal disease Procedure: Utilizing the patient's cvc as a vascular access, the patient was initiated on hemodialysis. Dialysis is planned for 4 hours. Blood flow of 400 ml per minute and Dialysate flow of 600 ml per minute were prescribed. The bath used was 2 mEq/L potassium, 3 mEq/L calcium, 140 mEq/L sodium and 35 mEq/L bicarbonate. UF goal: 1.5L, BP stable. Revaclear 300 hollow fiber dialyzer was used. No heparin was used for anticoagulation. No complications have been encountered to this point. I was present during dialysis, and was available for the entirety of the dialysis treatment. # Compliant with frequency and duration of dialysis: yes Physical Exam: BP 97/63 Pulse 83 Temp (!) 95.9 F (35.5 C) Resp 23 Ht 6' 2 (1.88 m) Wt 73.2 kg (161 lb 6.4 oz) SpO2 95% BMI 20.72 kg/m Nad. Normal respiratory effort. A/o x3 Assesment and Plan: ESRD: on HD per Saturday, Saturday and Saturday outpatient schedule. Will see on HD days while inpatient. Anemia Aranesp Hgb 8.9 Claudia Bradley NP [facility] 01/18/25, 2:34 PM us Shanae Estevez NP DIALYSIS ORDERABLES Final Result [facility] CLIA# [id number] [address] [place] [address] * US TRANSCUTANEOUS OXYGEN ILANA MULTI (01/16/2025 3:24 PM CDT) Anatomical Region Laterality Modality Lower Extremity Ultrasound 01/16/2025 3:23 PM CDT Narrative 01/17/2025 1:39 PM CDT [facility] [address] [place] [address] Noninvasive Vascular Lab Transcutaneous Oxygen Measurements Lower Extremity Patient: Turner Samuel Study ID: US TRANSCUTANEOU Gender: M : 1990 Age: 34 Room: Height: Weight: BSA: Pt status: Inpatient Study Date: 01/16/2025 Study Time: 03:23:55 PM BSA: Ordering: Estefania Dietrich Interpreting:Antonino Nazario Floor Associate: FRANCINE Indications: Amputations. Summary Impression: There is decreased skin microcirculation of bilateral legs, with adequate response to inhaled 100% oxygen. However, healing potential based on this study is poor unless assisted by hyperbaric oxygent therapy. Study data: Bilateral lower extremity transcutaneous oxygen measurements. Location: Bedside. Patient status: Inpatient. Study status: STAT. TCp02 measurements - Right - Right medial ankle 3mm Hg (Room air) 72mm Hg (100% 02) - Right medial calf 13mm Hg (Room air) 75mm Hg (100% 02) - Right medial distal thigh 36mm Hg (Room air) 191mm Hg (100% 02) TCp02 measurements - Left - Left medial ankle 17mm Hg (Room air) 115mm Hg (100% 02) - Left medial calf 11mm Hg (Room air) 69mm Hg (100% 02) - Left medial distal thigh 25mm Hg (Room air) 154mm Hg (100% 02) [facility] is accredited with the Intersocietal Commission for the Accreditation of Vascular Laboratories (ICAVL) Prepared and Electronically Authenticated Antonino Nazario Confirmed 01/17/2025 13:39 Procedure Note Antonino Nazario MD - 01/17/2025 [facility] Noninvasive Vascular Laboratory [address] [place] [address] Noninvasive Vascular Lab Transcutaneous Oxygen Measurements Lower Extremity Patient: Turner Samuel Study ID: US TRANSCUTANEOU Gender: M : 1990 Age: 34 Room: Height: Weight: BSA: Pt status: Inpatient Study Date: 01/16/2025 Study Time: 03:23:55 PM BSA: Ordering: Estefania Dietrich Interpreting:Antonino Nazario Floor Associate: FRANCINE Indications: Amputations. Summary Impression: There is decreased skin microcirculation of bilateral legs, withadequate response to inhaled 100% oxygen. However, healing potential based onthis study is poor unless assisted by hyperbaric oxygent therapy. Study data: Bilateral lower extremity transcutaneous oxygenmeasurements. Location: Bedside. Patient status: Inpatient. Study status:STAT. TCp02 measurements - Right - Right medial ankle 3mm Hg (Room air) 72mm Hg (100% 02) - Right medial calf 13mm Hg (Room air) 75mm Hg (100% 02) - Right medial distal thigh 36mm Hg (Room air) 191mm Hg (100% 02) TCp02 measurements - Left - Left medial ankle 17mm Hg (Room air) 115mm Hg (100% 02) - Left medial calf 11mm Hg (Room air) 69mm Hg (100% 02) - Left medial distal thigh 25mm Hg (Room air) 154mm Hg (100% 02) [facility] is accredited with theIntersocietal Commission for the Accreditation of Vascular Laboratories (ICAVL) Prepared and Electronically Authenticated Antonino Nazario Confirmed 01/17/2025 13:39 us Estefania FLORES US ORDERABLES Final Result * (ABNORMAL) SEDIMENTATION RATE (01/15/2025 6:37 AM CDT) ESR (SEDIMENTATION RATE) 68(H) 0 - 10 mm/Hr 01/15/2025 11:57 AM CDT [facility] Blood Venipuncture / Unknown 01/15/2025 6:37 AM CDT 01/15/2025 6:41 AM CDT Juan Ramon Coronado MD HEMATOLOGY ORDERABLES Fi nal Result Performing Organization Address [facility] Co de Phone Number [facility] [place] [facility] CLIA # [id number] [id number] [place], [place] [address] * (ABNORMAL) C-REACTIVE PROTEIN (01/15/2025 6:37 AM CDT) CRP 134.6(H) 0.0 - 5.0 mg/L 01/15/2025 12:03 PM CDT [facility] [place] [facility] Blood Venipuncture / Unknown 01/15/2025 6:37 AM CDT 01/15/2025 6:41 AM CDT Juan Ramon Coronado MD CHEMISTRY ORDERABLES Fin al Result Performing Organization Address [facility] Co de Phone Number [facility] [place] [facility] CLIA # [id number] [address] [address] * MRI FOOT W WO CONTRAST RIGHT (01/15/2025 6:03 AM CDT) Anatomical Region Laterality Modality Ankle / Foot Magnetic Resonan ce 01/15/2025 6:03 AM CDT Impressions 01/15/2025 7:28 AM CDT IMPRESSION: Please see below. Exam: MRI ANKLE W WO CONTRAST RIGHT, MRI FOOT W WO CONTRAST RIGHT Date/Time of Exam: 01/15/2025 6:03 AM Reason For Exam: Osteomyelitis suspected, ankle, xray done. Diagnosis: NSTEMI (non-ST elevated myocardial infarction) (CMS/HCC); Chest pain with high risk for cardiac etiology. Technique: MRI of the right ankle was performed prior to and following the administration of intravenous contrast. Contrast: GADOBENATE DIMEGLUMINE 529 MG/ML(0.1 MMOL/0.2 ML) INTRAVENOUS SOLUTION Given:10 mL. Comparison: None. Findings: Right foot: There is a soft tissue wound along the lateral aspect of the metatarsal. There is a focal area of hyperintense T2 signal and mild postcontrast enhancement along the lateral head of the fifth metatarsal with preserved T1 signal. There is surrounding cellulitis. There are no fluid collections or hematomas. There is atrophy throughout the intrinsic musculature of the foot. No visualized joint effusions. Right ankle: There appears to be a soft tissue wound along the lateral aspect of the heel which measures approximately 25 mm in size. There is underlying T2 signal abnormality postcontrast enhancement consistent with cellulitis. There is minimal T2 signal abnormality seen along the posterior lateral aspect heel with postcontrast enhancement and preserved T1 signal. No discrete fluid collection is seen. There is T2 signal abnormality seen throughout the intrinsic musculature of the foot. There there is a second soft tissue wound along the lateral aspect of the fifth metatarsal base with associated faint area of low T1 signal, postcontrast enhancement and T2 signal abnormality. Soft tissue and measures approximately 12 mm in size and extends to the bone. There is T2 signal abnormality seen throughout subcutaneous tissue of the hindfoot which demonstrates postcontrast enhancement compatible cellulitis. Visualized flexor, extensor and peroneal tendons are grossly intact without full-thickness tear. There is no significant tibiotalar or subtalar joint effusion. IMPRESSION: 1. Findings compatible with nonspecific osteitis involving the lateral heel with adjacent soft tissue wound and cellulitis. 2. Findings concerning for acute osteomyelitis involving the base of the fifth metatarsal with adjacent soft tissue wound and cellulitis. 3. Nonspecific osteitis involving the head of the fifth metatarsal with adjacent cellulitis and soft tissue. Narrative Procedure Note Adams Aguero MD - 01/15/2025 IMPRESSION: Please see below. Exam: MRI ANKLE W WO CONTRAST RIGHT, MRI FOOT W WO CONTRAST RIGHT Date/Time of Exam: 01/15/2025 6:03 AM Reason For Exam: Osteomyelitis suspected, ankle, xray done. Diagnosis: NSTEMI (non-ST elevated myocardial infarction) (CMS/HCC); Chest pain with high risk for cardiac etiology. Technique: MRI of the right ankle was performed prior to and following the administration of intravenous contrast. Contrast: GADOBENATE DIMEGLUMINE 529 MG/ML(0.1 MMOL/0.2 ML) INTRAVENOUS SOLUTION Given:10 mL. Comparison: None. Findings: Right foot: There is a soft tissue wound along the lateral aspect of the metatarsal. There is a focal area of hyperintense T2 signal and mild postcontrast enhancement along the lateral head of the fifth metatarsal with preserved T1 signal. There is surrounding cellulitis. There are no fluid collections or hematomas. There is atrophy throughout the intrinsic musculature of the foot. No visualized joint effusions. Right ankle: There appears to be a soft tissue wound along the lateral aspect of the heel which measures approximately 25 mm in size. There is underlying T2 signal abnormality postcontrast enhancement consistent with cellulitis. There is minimal T2 signal abnormality seen along the posterior lateral aspect heel with postcontrast enhancement and preserved T1 signal. No discrete fluid collection is seen. There is T2 signal abnormality seen throughout the intrinsic musculature of the foot. There there is a second soft tissue wound along the lateral aspect of the fifth metatarsal base with associated faint area of low T1 signal, postcontrast enhancement and T2 signal abnormality. Soft tissue and measures approximately 12 mm in size and extends to the bone. There is T2 signal abnormality seen throughout subcutaneous tissue of the hindfoot which demonstrates postcontrast enhancement compatible cellulitis. Visualized flexor, extensor and peroneal tendons are grossly intact without full-thickness tear. There is no significant tibiotalar or subtalar joint effusion. IMPRESSION: 1. Findings compatible with nonspecific osteitis involving the lateral heel with adjacent soft tissue wound and cellulitis. 2. Findings concerning for acute osteomyelitis involving the base of the fifth metatarsal with adjacent soft tissue wound and cellulitis. 3. Nonspecific osteitis involving the head of the fifth metatarsal with adjacent cellulitis and soft tissue. Juan Ramon Coronado MD MR ORDERABLES Final Re sult * MRI ANKLE W WO CONTRAST LEFT (01/15/2025 6:03 AM CDT) Anatomical Region Laterality Modality Ankle / Foot Magnetic Resonan ce 01/15/2025 6:03 AM CDT Impressions 01/15/2025 7:17 AM CDT IMPRESSION: Please see below. Exam: MRI FOOT W WO CONTRAST LEFT, MRI ANKLE W WO CONTRAST LEFT Date/Time of Exam: 01/15/2025 6:03 AM Reason For Exam: Foot swelling, diabetic, osteomyelitis suspected, xray done. Diagnosis: NSTEMI (non-ST elevated myocardial infarction) (CMS/HCC); Chest pain with high risk for cardiac etiology. Technique: MRI of the left foot was performed prior to and following the administration of intravenous contrast. Contrast: GADOBENATE DIMEGLUMINE 529 MG/ML(0.1 MMOL/0.2 ML) INTRAVENOUS SOLUTION Given:10 mL. Comparison: None. Findings: Left foot: Partial amputation of the first ray. No confluent low T1 marrow signal to suggest acute osteomyelitis. T2 signal abnormality throughout the intrinsic musculature of the foot. T2 signal abnormality along the dorsal aspect of the forefoot without postcontrast enhancement. Left ankle: There is a large soft tissue wound along the plantar aspect of the heel which measures at least 45 mm in size. This extends to the bone. There is focal area of hypointense T1 marrow signal involving the plantar aspect of heel with associated T2 hyperintensity and postcontrast enhancement (24-11, 10-11, 26-24). Marrow signal is otherwise preserved. Achilles tendon is intact. Plantar fascia is intact. No full-thickness tendon tears or ligament tears are identified. IMPRESSION: 1. Acute osteomyelitis involving the heel with large adjacent soft tissue wound. 2. No evidence of acute osteomyelitis in the forefoot. Narrative Procedure Note Adams Aguero MD - 01/15/2025 IMPRESSION: Please see below. Exam: MRI FOOT W WO CONTRAST LEFT, MRI ANKLE W WO CONTRAST LEFT Date/Time of Exam: 01/15/2025 6:03 AM Reason For Exam: Foot swelling, diabetic, osteomyelitis suspected, xray done. Diagnosis: NSTEMI (non-ST elevated myocardial infarction) (CMS/HCC); Chest pain with high risk for cardiac etiology. Technique: MRI of the left foot was performed prior to and following the administration of intravenous contrast. Contrast: GADOBENATE DIMEGLUMINE 529 MG/ML(0.1 MMOL/0.2 ML) INTRAVENOUS SOLUTION Given:10 mL. Comparison: None. Findings: Left foot: Partial amputation of the first ray. No confluent low T1 marrow signal to suggest acute osteomyelitis. T2 signal abnormality throughout the intrinsic musculature of the foot. T2 signal abnormality along the dorsal aspect of the forefoot without postcontrast enhancement. Left ankle: There is a large soft tissue wound along the plantar aspect of the heel which measures at least 45 mm in size. This extends to the bone. There is focal area of hypointense T1 marrow signal involving the plantar aspect of heel with associated T2 hyperintensity and postcontrast enhancement (24-11, 10-11, 26-24). Marrow signal is otherwise preserved. Achilles tendon is intact. Plantar fascia is intact. No full-thickness tendon tears or ligament tears are identified. IMPRESSION: 1. Acute osteomyelitis involving the heel with large adjacent soft tissue wound. 2. No evidence of acute osteomyelitis in the forefoot. us Juan Ramon Coronado MD MR ORDERABLES Final Re sult * MRI ANKLE W WO CONTRAST RIGHT (01/15/2025 6:03 AM CDT) Anatomical Region Laterality Modality Ankle / Foot Magnetic Resonan ce 01/15/2025 6:03 AM CDT Impressions 01/15/2025 7:28 AM CDT IMPRESSION: Please see below. Exam: MRI ANKLE W WO CONTRAST RIGHT, MRI FOOT W WO CONTRAST RIGHT Date/Time of Exam: 01/15/2025 6:03 AM Reason For Exam: Osteomyelitis suspected, ankle, xray done. Diagnosis: NSTEMI (non-ST elevated myocardial infarction) (CMS/HCC); Chest pain with high risk for cardiac etiology. Technique: MRI of the right ankle was performed prior to and following the administration of intravenous contrast. Contrast: GADOBENATE DIMEGLUMINE 529 MG/ML(0.1 MMOL/0.2 ML) INTRAVENOUS SOLUTION Given:10 mL. Comparison: None. Findings: Right foot: There is a soft tissue wound along the lateral aspect of the metatarsal. There is a focal area of hyperintense T2 signal and mild postcontrast enhancement along the lateral head of the fifth metatarsal with preserved T1 signal. There is surrounding cellulitis. There are no fluid collections or hematomas. There is atrophy throughout the intrinsic musculature of the foot. No visualized joint effusions. Right ankle: There appears to be a soft tissue wound along the lateral aspect of the heel which measures approximately 25 mm in size. There is underlying T2 signal abnormality postcontrast enhancement consistent with cellulitis. There is minimal T2 signal abnormality seen along the posterior lateral aspect heel with postcontrast enhancement and preserved T1 signal. No discrete fluid collection is seen. There is T2 signal abnormality seen throughout the intrinsic musculature of the foot. There there is a second soft tissue wound along the lateral aspect of the fifth metatarsal base with associated faint area of low T1 signal, postcontrast enhancement and T2 signal abnormality. Soft tissue and measures approximately 12 mm in size and extends to the bone. There is T2 signal abnormality seen throughout subcutaneous tissue of the hindfoot which demonstrates postcontrast enhancement compatible cellulitis. Visualized flexor, extensor and peroneal tendons are grossly intact without full-thickness tear. There is no significant tibiotalar or subtalar joint effusion. IMPRESSION: 1. Findings compatible with nonspecific osteitis involving the lateral heel with adjacent soft tissue wound and cellulitis. 2. Findings concerning for acute osteomyelitis involving the base of the fifth metatarsal with adjacent soft tissue wound and cellulitis. 3. Nonspecific osteitis involving the head of the fifth metatarsal with adjacent cellulitis and soft tissue. Narrative Procedure Note Adams Aguero MD - 01/15/2025 IMPRESSION: Please see below. Exam: MRI ANKLE W WO CONTRAST RIGHT, MRI FOOT W WO CONTRAST RIGHT Date/Time of Exam: 01/15/2025 6:03 AM Reason For Exam: Osteomyelitis suspected, ankle, xray done. Diagnosis: NSTEMI (non-ST elevated myocardial infarction) (CMS/HCC); Chest pain with high risk for cardiac etiology. Technique: MRI of the right ankle was performed prior to and following the administration of intravenous contrast. Contrast: GADOBENATE DIMEGLUMINE 529 MG/ML(0.1 MMOL/0.2 ML) INTRAVENOUS SOLUTION Given:10 mL. Comparison: None. Findings: Right foot: There is a soft tissue wound along the lateral aspect of the metatarsal. There is a focal area of hyperintense T2 signal and mild postcontrast enhancement along the lateral head of the fifth metatarsal with preserved T1 signal. There is surrounding cellulitis. There are no fluid collections or hematomas. There is atrophy throughout the intrinsic musculature of the foot. No visualized joint effusions. Right ankle: There appears to be a soft tissue wound along the lateral aspect of the heel which measures approximately 25 mm in size. There is underlying T2 signal abnormality postcontrast enhancement consistent with cellulitis. There is minimal T2 signal abnormality seen along the posterior lateral aspect heel with postcontrast enhancement and preserved T1 signal. No discrete fluid collection is seen. There is T2 signal abnormality seen throughout the intrinsic musculature of the foot. There there is a second soft tissue wound along the lateral aspect of the fifth metatarsal base with associated faint area of low T1 signal, postcontrast enhancement and T2 signal abnormality. Soft tissue and measures approximately 12 mm in size and extends to the bone. There is T2 signal abnormality seen throughout subcutaneous tissue of the hindfoot which demonstrates postcontrast enhancement compatible cellulitis. Visualized flexor, extensor and peroneal tendons are grossly intact without full-thickness tear. There is no significant tibiotalar or subtalar joint effusion. IMPRESSION: 1. Findings compatible with nonspecific osteitis involving the lateral heel with adjacent soft tissue wound and cellulitis. 2. Findings concerning for acute osteomyelitis involving the base of the fifth metatarsal with adjacent soft tissue wound and cellulitis. 3. Nonspecific osteitis involving the head of the fifth metatarsal with adjacent cellulitis and soft tissue. us Juan Ramon Coronado MD MR ORDERABLES Final Re sult * MRI FOOT W WO CONTRAST LEFT (01/15/2025 6:03 AM CDT) Anatomical Region Laterality Modality Ankle / Foot Magnetic Resonan ce 01/15/2025 6:03 AM CDT Impressions 01/15/2025 7:17 AM CDT IMPRESSION: Please see below. Exam: MRI FOOT W WO CONTRAST LEFT, MRI ANKLE W WO CONTRAST LEFT Date/Time of Exam: 01/15/2025 6:03 AM Reason For Exam: Foot swelling, diabetic, osteomyelitis suspected, xray done. Diagnosis: NSTEMI (non-ST elevated myocardial infarction) (CMS/HCC); Chest pain with high risk for cardiac etiology. Technique: MRI of the left foot was performed prior to and following the administration of intravenous contrast. Contrast: GADOBENATE DIMEGLUMINE 529 MG/ML(0.1 MMOL/0.2 ML) INTRAVENOUS SOLUTION Given:10 mL. Comparison: None. Findings: Left foot: Partial amputation of the first ray. No confluent low T1 marrow signal to suggest acute osteomyelitis. T2 signal abnormality throughout the intrinsic musculature of the foot. T2 signal abnormality along the dorsal aspect of the forefoot without postcontrast enhancement. Left ankle: There is a large soft tissue wound along the plantar aspect of the heel which measures at least 45 mm in size. This extends to the bone. There is focal area of hypointense T1 marrow signal involving the plantar aspect of heel with associated T2 hyperintensity and postcontrast enhancement (24-11, 10-11, 26-24). Marrow signal is otherwise preserved. Achilles tendon is intact. Plantar fascia is intact. No full-thickness tendon tears or ligament tears are identified. IMPRESSION: 1. Acute osteomyelitis involving the heel with large adjacent soft tissue wound. 2. No evidence of acute osteomyelitis in the forefoot. Narrative Procedure Note Adams Aguero MD - 01/15/2025 IMPRESSION: Please see below. Exam: MRI FOOT W WO CONTRAST LEFT, MRI ANKLE W WO CONTRAST LEFT Date/Time of Exam: 01/15/2025 6:03 AM Reason For Exam: Foot swelling, diabetic, osteomyelitis suspected, xray done. Diagnosis: NSTEMI (non-ST elevated myocardial infarction) (CMS/HCC); Chest pain with high risk for cardiac etiology. Technique: MRI of the left foot was performed prior to and following the administration of intravenous contrast. Contrast: GADOBENATE DIMEGLUMINE 529 MG/ML(0.1 MMOL/0.2 ML) INTRAVENOUS SOLUTION Given:10 mL. Comparison: None. Findings: Left foot: Partial amputation of the first ray. No confluent low T1 marrow signal to suggest acute osteomyelitis. T2 signal abnormality throughout the intrinsic musculature of the foot. T2 signal abnormality along the dorsal aspect of the forefoot without postcontrast enhancement. Left ankle: There is a large soft tissue wound along the plantar aspect of the heel which measures at least 45 mm in size. This extends to the bone. There is focal area of hypointense T1 marrow signal involving the plantar aspect of heel with associated T2 hyperintensity and postcontrast enhancement (24-11, 10-11, 26-24). Marrow signal is otherwise preserved. Achilles tendon is intact. Plantar fascia is intact. No full-thickness tendon tears or ligament tears are identified. IMPRESSION: 1. Acute osteomyelitis involving the heel with large adjacent soft tissue wound. 2. No evidence of acute osteomyelitis in the forefoot. us Juan Ramon Coronado MD MR ORDERABLES Final Re sult * (ABNORMAL) NM MYOCARD PERF IMAG SPECT MULT (01/14/2025 4:11 PM CDT) EJECTION FRACTION 74(A) 50 - 65 % INTERFACE SYSTEM 01/14/2025 4:12 PM CDT Impressions INTERFACE SYSTEM - 01/14/2025 4:28 PM CDT Impression: 1. No evidence of significant myocardial ischemia or transmural myocardial injury [resting defects which normalizes poststress and consistent with attenuation artifact]. 2. Normal left ventricular systolic function, with LVEF 74%. 3. No previous study is available for direct comparison. Too Garcia MD, [facility], [facility] Narrative INTERFACE SYSTEM - 01/14/2025 4:28 PM CDT Rest/Stress One-day SPECT Myocardial Perfusion Imaging with Pharmacologic Stress Clinical Indication and History: Chest pain. Diabetes, tobacco use, elevated troponin, dialysis. Procedure: Patient is 74 inches tall and weighs 164 lb. Rest Tc99m dose was injected 10-20 seconds after the saline flush. Myocardial perfusion imaging was performed at rest in upright position (30 minutes following the intravenous injection of 9.5 mCi of Tc99m Tetrofosmin). Pharmacologic stress testing was performed with Regadenoson 0.4 mg injected intravenously over 10 seconds. The patient reported flushing and feeling hot during stress test. At peak pharmacologic effect, the patient was intravenously injected with 32.6 mCi of Tc99m Tetrofosmin. Gated post-stress tomographic imaging was performed 45 minutes after stress in upright position, followed by supine perfusion imaging. Anterior planar and gated cardiac SPECT views were obtained and data reconstructed in the short, horizontal long and vertical long axis views. All imaging was performed on VOY[employer] and data analyzed using [employer]. The resting heart rate was 99 beats per minute and peak heart rate during stress was 101 beats per minute. Blood pressure was 91/63 mmHg at rest and 85/55 mm Hg at peak stress. Blood pressure response was appropriate during the stress procedure. The resting electrocardiogram demonstrated normal sinus rhythm, mild diffuse ST-segment changes. During stress, no significant ST-T changes were noted. There was evidence of no significant new arrhythmias. Findings: The overall quality of the study is fair to difficult. There is evidence of prominent attenuation artifact artifact. Left ventricular cavity is noted to be normal in size on the rest images without further dilatation on post stress images. SPECT images demonstrate nonhomogeneous tracer distribution and myocardial perfusion. There is a small resting inferior apical defect which normalizes poststress and consistent with attenuation. There also appears to be a lateral defect, most prominent towards the base which normalizes poststress and suggestive of attenuation. No obvious reversible defect is identified by visual or computer-assisted quantitative analysis Gated SPECT imaging reveals normal myocardial thickening and wall motion of all visualized segments. The left ventricular ejection fraction was calculated to be 74%, with an end-diastolic volume of 124 ml. In summary, the clinical, electrocardiographic and scintigraphic findings in this 34 years patient being evaluated for ischemia using regadenoson are as follows: Clinical response: Non-diagnostic (regadenoson). Electrocardiographic response: Non-ischemic Scintigraphic response: Non-ischemic Procedure Note Too Garcia MD - 01/14/2025 Rest/Stress One-day SPECT Myocardial Perfusion Imaging with Pharmacologic Stress Clinical Indication and History: Chest pain. Diabetes, tobacco use, elevated troponin, dialysis. Procedure: Patient is 74 inches tall and weighs 164 lb. Rest Tc99m dose was injected 10-20 seconds after the saline flush. Myocardial perfusion imaging was performed at rest in upright position (30 minutes following the intravenous injection of 9.5 mCi of Tc99m Tetrofosmin). Pharmacologic stress testing was performed with Regadenoson 0.4 mg injected intravenously over 10 seconds. The patient reported flushing and feeling hot during stress test. At peak pharmacologic effect, the patient was intravenously injected with 32.6 mCi of Tc99m Tetrofosmin. Gated post-stress tomographic imaging was performed 45 minutes after stress in upright position, followed by supine perfusion imaging. Anterior planar and gated cardiac SPECT views were obtained and data reconstructed in the short, horizontal long and vertical long axis views. All imaging was performed on [employer] and data analyzed using [employer]. The resting heart rate was 99 beats per minute and peak heart rate during stress was 101 beats per minute. Blood pressure was 91/63 mmHg at rest and 85/55 mm Hg at peak stress. Blood pressure response was appropriate during the stress procedure. The resting electrocardiogram demonstrated normal sinus rhythm, mild diffuse ST-segment changes. During stress, no significant ST-T changes were noted. There was evidence of no significant new arrhythmias. Findings: The overall quality of the study is fair to difficult. There is evidence of prominent attenuation artifact artifact. Left ventricular cavity is noted to be normal in size on the rest images without further dilatation on post stress images. SPECT images demonstrate nonhomogeneous tracer distribution and myocardial perfusion. There is a small resting inferior apical defect which normalizes poststress and consistent with attenuation. There also appears to be a lateral defect, most prominent towards the base which normalizes poststress and suggestive of attenuation. No obvious reversible defect is identified by visual or computer-assisted quantitative analysis Gated SPECT imaging reveals normal myocardial thickening and wall motion of all visualized segments. The left ventricular ejection fraction was calculated to be 74%, with an end-diastolic volume of 124 ml. In summary, the clinical, electrocardiographic and scintigraphic findings in this 34 years patient being evaluated for ischemia using regadenoson are as follows: Clinical response: Non-diagnostic (regadenoson). Electrocardiographic response: Non-ischemic Scintigraphic response: Non-ischemic Impression: 1. No evidence of significant myocardial ischemia or transmural myocardial injury [resting defects which normalizes poststress and consistent with attenuation artifact]. 2. Normal left ventricular systolic function, with LVEF 74%. 3. No previous study is available for direct comparison. Too Garcia MD, [facility], [facility] Hussain Britt MD NM ORDERABLES Final Result INTERFACE SYSTEM Refer to clinic/hospital department * (ABNORMAL) NM PHARMACOLOGICAL STRESS TEST (01/14/2025 2:38 PM CDT) 01/14/2025 2:41 PM CDT Impressions INTERFACE SYSTEM - 01/14/2025 4:28 PM CDT Impression: 1. No evidence of significant myocardial ischemia or transmural myocardial injury [resting defects which normalizes poststress and consistent with attenuation artifact]. 2. Normal left ventricular systolic function, with LVEF 74%. 3. No previous study is available for direct comparison. Too Garcia MD, [facility], [facility] Narrative INTERFACE SYSTEM - 01/14/2025 4:28 PM CDT Rest/Stress One-day SPECT Myocardial Perfusion Imaging with Pharmacologic Stress Clinical Indication and History: Chest pain. Diabetes, tobacco use, elevated troponin, dialysis. Procedure: Patient is 74 inches tall and weighs 164 lb. Rest Tc99m dose was injected 10-20 seconds after the saline flush. Myocardial perfusion imaging was performed at rest in upright position (30 minutes following the intravenous injection of 9.5 mCi of Tc99m Tetrofosmin). Pharmacologic stress testing was performed with Regadenoson 0.4 mg injected intravenously over 10 seconds. The patient reported flushing and feeling hot during stress test. At peak pharmacologic effect, the patient was intravenously injected with 32.6 mCi of Tc99m Tetrofosmin. Gated post-stress tomographic imaging was performed 45 minutes after stress in upright position, followed by supine perfusion imaging. Anterior planar and gated cardiac SPECT views were obtained and data reconstructed in the short, horizontal long and vertical long axis views. All imaging was performed on VOYAA and data analyzed using [employer]. The resting heart rate was 99 beats per minute and peak heart rate during stress was 101 beats per minute. Blood pressure was 91/63 mmHg at rest and 85/55 mm Hg at peak stress. Blood pressure response was appropriate during the stress procedure. The resting electrocardiogram demonstrated normal sinus rhythm, mild diffuse ST-segment changes. During stress, no significant ST-T changes were noted. There was evidence of no significant new arrhythmias. Findings: The overall quality of the study is fair to difficult. There is evidence of prominent attenuation artifact artifact. Left ventricular cavity is noted to be normal in size on the rest images without further dilatation on post stress images. SPECT images demonstrate nonhomogeneous tracer distribution and myocardial perfusion. There is a small resting inferior apical defect which normalizes poststress and consistent with attenuation. There also appears to be a lateral defect, most prominent towards the base which normalizes poststress and suggestive of attenuation. No obvious reversible defect is identified by visual or computer-assisted quantitative analysis Gated SPECT imaging reveals normal myocardial thickening and wall motion of all visualized segments. The left ventricular ejection fraction was calculated to be 74%, with an end-diastolic volume of 124 ml. In summary, the clinical, electrocardiographic and scintigraphic findings in this 34 years patient being evaluated for ischemia using regadenoson are as follows: Clinical response: Non-diagnostic (regadenoson). Electrocardiographic response: Non-ischemic Scintigraphic response: Non-ischemic Procedure Note Too Garcia MD - 01/14/2025 Rest/Stress One-day SPECT Myocardial Perfusion Imaging with Pharmacologic Stress Clinical Indication and History: Chest pain. Diabetes, tobacco use, elevated troponin, dialysis. Procedure: Patient is 74 inches tall and weighs 164 lb. Rest Tc99m dose was injected 10-20 seconds after the saline flush. Myocardial perfusion imaging was performed at rest in upright position (30 minutes following the intravenous injection of 9.5 mCi of Tc99m Tetrofosmin). Pharmacologic stress testing was performed with Regadenoson 0.4 mg injected intravenously over 10 seconds. The patient reported flushing and feeling hot during stress test. At peak pharmacologic effect, the patient was intravenously injected with 32.6 mCi of Tc99m Tetrofosmin. Gated post-stress tomographic imaging was performed 45 minutes after stress in upright position, followed by supine perfusion imaging. Anterior planar and gated cardiac SPECT views were obtained and data reconstructed in the short, horizontal long and vertical long axis views. All imaging was performed on VOYAA and data analyzed using [employer]. The resting heart rate was 99 beats per minute and peak heart rate during stress was 101 beats per minute. Blood pressure was 91/63 mmHg at rest and 85/55 mm Hg at peak stress. Blood pressure response was appropriate during the stress procedure. The resting electrocardiogram demonstrated normal sinus rhythm, mild diffuse ST-segment changes. During stress, no significant ST-T changes were noted. There was evidence of no significant new arrhythmias. Findings: The overall quality of the study is fair to difficult. There is evidence of prominent attenuation artifact artifact. Left ventricular cavity is noted to be normal in size on the rest images without further dilatation on post stress images. SPECT images demonstrate nonhomogeneous tracer distribution and myocardial perfusion. There is a small resting inferior apical defect which normalizes poststress and consistent with attenuation. There also appears to be a lateral defect, most prominent towards the base which normalizes poststress and suggestive of attenuation. No obvious reversible defect is identified by visual or computer-assisted quantitative analysis Gated SPECT imaging reveals normal myocardial thickening and wall motion of all visualized segments. The left ventricular ejection fraction was calculated to be 74%, with an end-diastolic volume of 124 ml. In summary, the clinical, electrocardiographic and scintigraphic findings in this 34 years patient being evaluated for ischemia using regadenoson are as follows: Clinical response: Non-diagnostic (regadenoson). Electrocardiographic response: Non-ischemic Scintigraphic response: Non-ischemic Impression: 1. No evidence of significant myocardial ischemia or transmural myocardial injury [resting defects which normalizes poststress and consistent with attenuation artifact]. 2. Normal left ventricular systolic function, with LVEF 74%. 3. No previous study is available for direct comparison. Too Garcia MD, [facility], [facility] us Hussain Britt MD NM ORDERABLES Final Result INTERFACE SYSTEM Refer to clinic/hospital department * US DUPLEX ARTERIAL LEGS BILATERAL (01/14/2025 8:59 AM CDT) Anatomical Region Laterality Modality Lower Extremity Ultrasound 01/14/2025 7:34 AM CDT Narrative 01/15/2025 9:11 AM CDT [facility] Noninvasive Vascular Laboratory [address] [place] [id number] Noninvasive Vascular Lab Arterial Exam Complete Lower Extremity Duplex Patient: Turner Samuel Study ID: US DUPLEX ARTERI Gender: M : 1990 Age: 34 Room: [facility] Height: 188cm Weight: 75.3kg BSA: 1.98m^2 Pt status: Inpatient Study Date: 01/14/2025 Study Time: 07:34:01 AM BSA: 1.98m^2 Ordering: Juan Ramon Coronado Interpreting:Prince Jessica Floor Associate: PARVEZ Indications: Claudication - b/l calcaneal gangrene Summary Impression: 1. Study demonstrates moderate diffuse and dense atherosclerosis, involving the right lower extremity and the left lower extremity. 2. Study demonstrates 50-75% stenosis, involving the right mid superficial femoral artery, the left distal superficial femoral artery, and the left popliteal artery. 3. The bilateral below knee arteries have slow monophasic flow. 4. No prior ultrasound available for comparison. Incidental findings: Lymphadenopathy is noted incidentally on theright. If clinically indicated, further follow-up is recommended. Lymphadenopathy is noted incidentally on the left. If clinically indicated, further follow-up is recommended. Study data: Bilateral lower extremity arterial duplex. Duplex scan and ankle-brachial index. Height: 188cm. Height: 74in. Weight: 75.3kg. Weight: 165.9lb. BMI: 21.3kg/m^2. BSA: 1.98m^2. Location: Bedside. Patient status: Inpatient. Study status: Routine. Procedure: A vascular evaluation was performed with the patient in the supine position. Imaged vessel(s): the right common femoral, right deep femoral, right femoral, right popliteal, right anterior tibial, right posterior tibial, right dorsal pedal, left common femoral, left deep femoral, left femoral, left popliteal, left anterior tibial, left posterior tibial, and left dorsal pedal arteries. Image quality was fair. The study was technically limited due to immobility, patient positioning, inability to insonate, and acoustic shadowing. Incidental findings: Lymphadenopathy is noted incidentally on theright. If clinically indicated, further follow-up is recommended. Lymphadenopathy is noted incidentally on the left. If clinically indicated, further follow-up is recommended. Arterial flow: - Right common femoral: Right common femoral 1.3m/sec Multiphasic - Right deep femoral: Right deep femoral 1.15m/sec Multiphasic - Right femoral proximal: Right femoral proximal 1.45m/sec Multiphasic - Right femoral mid: Right femoral mid 2.36m/sec Multiphasic - Right femoral distal: Right femoral distal 1.3m/sec Multiphasic - Right popliteal proximal: Right popliteal proximal 1.05m/sec Monophasic - Right popliteal distal: Right popliteal distal 1m/sec Monophasic - Right anterior tibial distal: Right anterior tibial distal 0.57m/sec Monophasic - Right posterior tibial distal: Right posterior tibial distal 0.69m/sec Monophasic - Right peroneal distal: Right peroneal distal 0.55m/sec Monophasic - Left common femoral: Left common femoral 1.22m/sec Multiphasic - Left deep femoral: Left deep femoral 1.35m/sec Multiphasic - Left femoral proximal: Left femoral proximal 1.52m/sec Multiphasic - Left femoral mid: Left femoral mid 1.59m/sec Multiphasic - Left femoral distal: Left femoral distal 2.53m/sec Multiphasic - Left popliteal proximal: Left popliteal proximal 3.75m/sec Monophasic - Left popliteal distal: Left popliteal distal 1.29m/sec Monophasic - Left anterior tibial distal: Left anterior tibial distal 0.6m/sec Monophasic - Left posterior tibial distal: Left posterior tibial distal 0.44m/sec Monophasic - Left peroneal distal: Left peroneal distal 0.36m/sec Monophasic [facility] is accredited with the Intersocietal Commission for the Accreditation of Vascular Laboratories (ICAVL) Prepared and Electronically Authenticated Prince Jessica Confirmed 01/15/2025 09:11 Procedure Note Prince Lopez MD - 01/15/2025 [facility] Noninvasive Vascular Laboratory [address] [place] [id number] Noninvasive Vascular Lab Arterial Exam Complete Lower Extremity Duplex Patient: Turner Samuel Thelma Study ID: US DUPLEX ARTERI Gender: M : 1990 Age: 34 Room: [facility] Height: 188cm Weight: 75.3kg BSA: 1.98m^2 Pt status: Inpatient Study Date: 01/14/2025 Study Time: 07:34:01 AM BSA: 1.98m^2 Ordering: Juan Ramon Coronado Interpreting:Prince Jessica Floor Associate: PARVEZ Indications: Claudication - b/l calcaneal gangrene Summary Impression: 1. Study demonstrates moderate diffuse and dense atherosclerosis,involving the right lower extremity and the left lower extremity. 2. Study demonstrates 50-75% stenosis, involving the right midsuperficial femoral artery, the left distal superficial femoral artery, and theleft popliteal artery. 3. The bilateral below knee arteries have slow monophasic flow. 4. No prior ultrasound available for comparison. Incidental findings: Lymphadenopathy is noted incidentally on theright.If clinically indicated, further follow-up is recommended. Lymphadenopathyis noted incidentally on the left. If clinically indicated, further follow-upis recommended. Study data: Bilateral lower extremity arterial duplex. Duplex scanand ankle-brachial index. Height: 188cm. Height: 74in. Weight: 75.3kg. Weight: 165.9lb. BMI: 21.3kg/m^2. BSA: 1.98m^2. Location:Bedside. Patient status: Inpatient. Study status: Routine. Procedure: A vascular evaluation was performed with the patient in the supineposition. Imaged vessel(s): the right common femoral, right deep femoral, rightfemoral, right popliteal, right anterior tibial, right posterior tibial, rightdorsal pedal, left common femoral, left deep femoral, left femoral, leftpopliteal, left anterior tibial, left posterior tibial, and left dorsal pedalarteries. Image quality was fair. The study was technically limited due toimmobility, patient positioning, inability to insonate, and acoustic shadowing. Incidental findings: Lymphadenopathy is noted incidentally on theright.If clinically indicated, further follow-up is recommended. Lymphadenopathyis noted incidentally on the left. If clinically indicated, further follow-upis recommended. Arterial flow: - Right common femoral: Right common femoral 1.3m/sec Multiphasic - Right deep femoral: Right deep femoral 1.15m/sec Multiphasic - Right femoral proximal: Right femoral proximal 1.45m/sec Multiphasic - Right femoral mid: Right femoral mid 2.36m/sec Multiphasic - Right femoral distal: Right femoral distal 1.3m/sec Multiphasic - Right popliteal proximal: Right popliteal proximal 1.05m/secMonophasic - Right popliteal distal: Right popliteal distal 1m/sec Monophasic - Right anterior tibial distal: Right anterior tibial distal 0.57m/sec Monophasic - Right posterior tibial distal: Right posterior tibial distal 0.69m/sec Monophasic - Right peroneal distal: Right peroneal distal 0.55m/sec Monophasic - Left common femoral: Left common femoral 1.22m/sec Multiphasic - Left deep femoral: Left deep femoral 1.35m/sec Multiphasic - Left femoral proximal: Left femoral proximal 1.52m/sec Multiphasic - Left femoral mid: Left femoral mid 1.59m/sec Multiphasic - Left femoral distal: Left femoral distal 2.53m/sec Multiphasic - Left popliteal proximal: Left popliteal proximal 3.75m/sec Monophasic - Left popliteal distal: Left popliteal distal 1.29m/sec Monophasic - Left anterior tibial distal: Left anterior tibial distal 0.6m/sec Monophasic - Left posterior tibial distal: Left posterior tibial distal 0.44m/sec Monophasic - Left peroneal distal: Left peroneal distal 0.36m/sec Monophasic [facility] is accredited with theIntersocietal Commission for the Accreditation of Vascular Laboratories (ICAVL) Prepared and Electronically Authenticated Prince Jessica Confirmed 01/15/2025 09:11 Juan Ramon Coronado MD US ORDERABLES Final Re sult * (ABNORMAL) TROPONIN 6 HR, 5TH GEN (01/12/2025 8:33 PM CDT) TROPONIN T, 6 HR 5TH GEN 186(HH) <=15 ng/L 01/12/2025 9:34 PM CDT [facility] DEL[place] 6HR TROPONIN T % -15 See Interp. % 01/12/2025 9:34 PM CDT [facility] Blood Venipuncture / Unknown 01/12/2025 8:33 PM CDT 01/12/2025 8:36 PM CDT Narrative [facility] - 01/12/2025 9:34 PM CDT Troponin elevated. Delta not changing. Bryan FLORES CHEMISTRY ORDERABLES Final Result Performing Organization Address [facility] [facility] Co de Phone Number [facility] CLIA # [id number] [address] [place] [address] * (ABNORMAL) TROPONIN 2 HR, 5TH GEN (01/12/2025 5:31 PM CDT) TROPONIN T, 2 HR 5TH GEN 196(HH) <=15 ng/L 01/12/2025 6:14 PM CDT [facility] [place] [facility] DELTA 2HR TROPONIN T % -10 See Interp. % 01/12/2025 6:14 PM CDT [facility] Blood Venipuncture / Unknown 01/12/2025 5:31 PM CDT 01/12/2025 5:38 PM CDT Narrative [facility] - 01/12/2025 6:14 PM CDT Troponin elevated. Delay in collection of timed specimen beyond recommended collection interval. Results must be interpreted in clinical context. Delta not changing. us Bryan FLORES CHEMISTRY ORDERABLES Final Result Performing Organization Address [facility] de Phone Number [facility] CLIA # [id number] [id number] [place] [address] * EXTRA TUBE (BLUE) (01/12/2025 4:38 PM CDT) Blood Venipuncture / Unknown 01/12/2025 4:38 PM CDT 01/12/2025 4:38 PM CDT us Rosario Leon MD HEMATOLOGY ORDERAB LES Final Result Performing Organization Address [facility] Co de Phone Number [facility] [place] [facility] CLIA # [id number] [address] [place] [address] * (ABNORMAL) TROPONIN BASELINE, 5TH GEN (01/12/2025 2:31 PM CDT) TROPONIN T, BASELINE 5TH GEN 218(HH) <=15 ng/L 01/12/2025 3:36 PM CDT [facility] Blood Venipuncture / Unknown 01/12/2025 2:31 PM CDT 01/12/2025 2:41 PM CDT Narrative [facility] - 01/12/2025 3:36 PM CDT Troponin elevated. Bryan FLORES CHEMISTRY ORDERABLES Final Result Performing Organization Address City/[facility]/ZIP Co de Phone Number [facility] CLIA # [id number] [address] [address] * (ABNORMAL) LIPASE (01/12/2025 2:31 PM CDT) [facility] LIPASE 5(L) 13 - 60 U/L 01/12/2025 3:19 PM CDT [facility] Blood Venipuncture / Unknown 01/12/2025 2:31 PM CDT 01/12/2025 2:41 PM CDT Bryan FLORES CHEMISTRY ORDERABLES Final Result Performing Organization Address City/[facility]/ZIP Co de Phone Number [facility] CLIA # [id number] [address] [address] * EKG 12-LEAD (01/12/2025 2:05 PM CDT) Only the most recent of2 resultswithin the time period is included. 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1990 Requested By: Order Number: [id number] Jordan GRECO: Trace Scott Measurements Intervals [place] Rate: 82 P: 57 TX: 158 QRS: 23 QRSD: 90 T: 59 QT: 442 QTc: 516 Interpretive Statements Normal sinus rhythm Cannot rule out Anterior infarct, age undetermined Abnormal ECG Electronically Signed On 01-13-2025 6:43:34 CDT by Trace Scott Procedure Note Trace Scott MD - 01/13/[address] [address] Test Date: 2025-01-12 Pat Name: TURNER SAMUEL Department: 11 Room: Gender: 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/ZIP Co de Phone Number INTERFACE SYSTEM Refer to clinic/hospital department * HAPTOGLOBIN (12/24/2024 10:11 AM CDT) HAPTOGLOBIN 106 30 - 200 mg/dL 12/24/2024 10:58 AM CDT [facility] Blood Venipuncture / Unknown 12/24/2024 10:11 AM CDT 12/24/2024 10:22 AM CDT us Jessie Orozco MD CHEMISTRY ORDERABLES Final Result Performing Organization Address City/[facility] Co de Phone Number [facility] [place] [facility] CLIA # [id number] [address] [place] [address] [place] [address] * (ABNORMAL) RENAL FUNCTION PANEL (12/24/2024 10:11 AM [facility]) Only the most recent of8 resultswithin the time period is included. SODIUM 140 136 - 145 mmol/L 12/24/2024 11:00 AM [facility] POTASSIUM 4.7 3.5 - 5.1 mmol/L 12/24/2024 11:00 AM [facility] CHLORIDE 104 98 - 107 mmol/L 12/24/2024 11:00 AM [facility] CO2 25 22 - 29 mmol/L 12/24/2024 11:00 AM [facility] CALCIUM 9.3 8.6 - 10.0 mg/dL 12/24/2024 11:00 AM [facility] BUN 36(H) 6 - 20 mg/dL 12/24/2024 11:00 AM [facility] CREATININE 4.20(H) 0.67 - 1.17 mg/dL 12/24/2024 11:00 AM [facility] GLUCOSE 244(H) 74 - 99 mg/dL 12/24/2024 11:00 AM [facility] ALBUMIN 2.9(L) 3.5 - 5.2 g/dL 12/24/2024 11:00 AM [facility] PHOSPHORUS 6.6(H) 2.5 - 4.5 mg/dL 12/24/2024 11:00 AM [facility] GFR 18(L) >=60 mL/min/1. 73 sq meter 12/24/2024 11:00 AM [facility] Comment:eGFR calculated with 2020 CKD-EPI equation. Vegetarian diet, extremely high or low muscle mass, and may affect results. Cystatin C with Glomerular Filtration Rate is a suitable alternative for these patients. ANION GAP 11 9 - 20 mmol/L 12/24/2024 11:00 AM CDT [facility] Blood Venipuncture / Unknown 12/24/2024 10:11 AM CDT 12/24/2024 10:22 AM CDT Moisés Mensah MD CHEMISTRY ORDERABLES Final R esult Performing Organization Address [facility] Co de Phone Number [facility] CLIA # [id number] [address] [address] * HEMODIALYSIS (12/21/2024 11:18 AM CDT) Narrative Jos Stover RN - 12/21/2024 11:18 AM CDT Jos Stover RN 12/21/2024 11:33 AM Renal Replacement Therapy Summary Procedure: Hemodialysis in 3F Dialyzer: RVC Access: Left tunneled IJ Blood Flow: 400 ml/min Procedure Time: 3 hours 34 minutes Blood Volume Processed: 89.3 liters Ultrafiltration Volume: 1900 ml with 500 ml rinse back Anticoagulation: none (ordered) r Post VS: BP:118/74 Pulse: 83 Temp:97 SpO2: 97 Dialyzer Cleared(%): 99% with mild clotting Complications: none Report sent to: Razia RN and Glenna RN on 7B via secure chat Neena Rothman [employer] ORDERABLES Final R esult * FOLATE, SERUM (12/18/2024 9:05 PM CDT) FOLATE, SERUM 5.8 3.1 - 17.5 ng/mL 12/18/2024 10:32 PM CDT [facility] Blood Venipuncture / Unknown 12/18/2024 9:05 PM CDT 12/18/2024 9:27 PM CDT us Jessie Orozco MD CHEMISTRY ORDERABLES Final Result Performing Organization Address [facility]/ZIP Co de Phone Number [facility] CLIA # [id number] [address] [facility] [place] [address] * ZINC LEVEL (12/18/2024 9:05 PM CDT) ZINC LEVEL 72 60 - 130 mcg/dL 12/23/2024 7:41 AM CDT [facility] Comment: (Note) This test was developed and its analytical performance characteristics have been determined by [facility]. It has not been cleared or approved by the FDA. This assay has been validated pursuant to the CLIA regulations and is used for clinical purposes. [facility] med fusion [address] [place] [address],[address] [place] [address] Ashish Hunter MD, PhD Blood Venipuncture / Unknown 12/18/2024 9:05 PM CDT 12/18/2024 9:24 PM CDT Narrative [facility] - 12/23/2024 7:41 AM CDT Performing Organization Information: Site ID: [id number] Name: [facility] Address: [address] [place] [address], [address] [address] Director: Ashish Hunter MD,PhD Jessie Orozco MD CHEMISTRY ORDERABLES Final Result Performing Organization Address City/State/[facility] Co de Phone Number [facility] * (ABNORMAL) COPPER LEVEL (12/18/2024 9:05 PM CDT) COPPER LEVEL 36(L) 70 - 175 mcg/dL 12/23/2024 7:41 AM CDT [facility] Comment: (Note) This test was developed and its analytical performance characteristics have been determined by [facility]. It has not been cleared or approved by the FDA. This assay has been validated pursuant to the CLIA regulations and is used for clinical purposes. [facility] med fusion [address] [place] [address],[address] [facility] [id number] Ashish Hunter MD, PhD Blood Venipuncture / Unknown 12/18/2024 9:05 PM CDT 12/18/2024 9:24 PM CDT Narrative [facility] - 12/23/2024 7:41 AM CDT Performing Organization Information: Site ID: [id number] Name: [facility] Address: [address] [place] [address], [address] [place] [address] Director: Ashish Hunter MD,PhD us Jessie Orozco MD CHEMISTRY ORDERABLES Final Result Performing Organization Address City/[facility]/ZIP Co de Phone Number [facility] * (ABNORMAL) VITAMIN B12 LEVEL (12/18/2024 9:05 PM CDT) VITAMIN B12 1,703(H) 211 - 946 pg/mL 12/18/2024 10:34 PM CDT [facility] Blood Venipuncture / Unknown 12/18/2024 9:05 PM CDT 12/18/2024 9:27 PM CDT Jessie Orozco MD CHEMISTRY ORDERABLES Final Result Performing Organization Address [facility] Co de Phone Number [facility] CLIA # [id number] [address] [place] [address] * US GUIDE NEEDLE PLACEMENT (12/18/2024 11:57 AM CDT) Anatomical Region Laterality Modality Ultrasound 12/18/2024 11:5 8 AM CDT Impressions 12/18/2024 11:59 AM CDT IMPRESSION: Please see below. Exam: US GUIDE NEEDLE PLACEMENT Date/Time of Exam: 12/18/2024 11:14 AM Reason For Exam: Other - Please see comments. This procedure was performed and preliminary findings dictated by Yesenia Lorenzo PA-C. Supervision and final interpretation by Dr. Meyer. CONSENT: Risks, benefits, and alternatives of the procedure were discussed with the patient. Specific risks of image guided percutaneous needle biopsy or aspiration of lymph node to include, but not limited to: bleeding, infection, pain, pneumothorax requiring chest tube placement, nausea or vomiting, injury to adjacent structures which may require additional surgery, nerve injury, the need for emergent surgery, blood transfusion, injury to blood vessels, respiratory compromise secondary to conscious sedation, and . Procedure may need to be repeated if the tissue or fluid sample obtained is non-diagnostic. Written informed consent was obtained from the patient. PROCEDURE IN DETAIL: A time out was performed to verify the patient and procedure. The patient was placed in a supine position, and ultrasound was utilized to evaluate the right axillary region for lymph node in question. The area was marked, prepped, and draped in the usual sterile fashion. All elements of maximal sterile barrier technique, including hand hygiene and cutaneous antisepsis with an antisepsis agent, were used. Local anesthesia was achieved with 1% lidocaine overlying the proposed needle course. A 17-gauge 5.1 cm introducer was inserted using direct ultrasound guidance. Four core biopsies were obtained with a 18-gauge 10 cm mPortico biopsy gun. The chlorhexidine cleansed from the skin, and a sterile dressing placed. A repeat ultrasound was done at that time to verify hemostasis, and no obvious bleeding was noted. Patient tolerated the procedure well without complication. Estimated Blood Loss: Minimal Narrative Procedure Note Zane Meyer MD - 12/18/2024 IMPRESSION: Please see below. Exam: US GUIDE NEEDLE PLACEMENT Date/Time of Exam: 12/18/2024 11:14 AM Reason For Exam: Other - Please see comments. This procedure was performed and preliminary findings dictated by Yesenia Lorenzo PA-C. Supervision and final interpretation by Dr. Meyer. CONSENT: Risks, benefits, and alternatives of the procedure were discussed with the patient. Specific risks of image guided percutaneous needle biopsy or aspiration of lymph node to include, but not limited to: bleeding, infection, pain, pneumothorax requiring chest tube placement, nausea or vomiting, injury to adjacent structures which may require additional surgery, nerve injury, the need for emergent surgery, blood transfusion, injury to blood vessels, respiratory compromise secondary to conscious sedation, and . Procedure may need to be repeated if the tissue or fluid sample obtained is non-diagnostic. Written informed consent was obtained from the patient. PROCEDURE IN DETAIL: A time out was performed to verify the patient and procedure. The patient was placed in a supine position, and ultrasound was utilized to evaluate the right axillary region for lymph node in question. The area was marked, prepped, and draped in the usual sterile fashion. All elements of maximal sterile barrier technique, including hand hygiene and cutaneous antisepsis with an antisepsis agent, were used. Local anesthesia was achieved with 1% lidocaine overlying the proposed needle course. A 17-gauge 5.1 cm introducer was inserted using direct ultrasound guidance. Four core biopsies were obtained with a 18-gauge 10 cm Bard Robert Applebaum MD biopsy gun. The chlorhexidine cleansed from the skin, and a sterile dressing placed. A repeat ultrasound was done at that time to verify hemostasis, and no obvious bleeding was noted. Patient tolerated the procedure well without complication. Estimated Blood Loss: Minimal Jessie Orozco MD US ORDERABLES Final Resu lt * LEVETIRACETAM LEVEL (12/15/2024 5:22 AM CDT) LEVETIRACETAM LEVEL 24.6 12.0 - 46.0 g/mL 12/15/2024 6:11 AM CDT [facility] Blood Venipuncture / Unknown 12/15/2024 5:22 AM CDT 12/15/2024 5:33 AM CDT Narrative [facility] - 12/15/2024 6:11 AM CDT Note that brivaracetem (Briviact), is known to significantly interfere with this assay. An alternative method should be utilized if therapy involves both levetiracetam and brivaracetem. Estefania Cruz NP CHEMISTRY ORDERABLES Final Re sult [facility] CLIA # [id number] Critical access hospital[address] [address] * TRANSFUSE FROZEN PLASMA (12/14/2024 1:10 PM CDT) Only the most recent of4 resultswithin the time period is included. Jonathan Ruiz MD BLOOD TRANSFUSION ORDERABLES Fi nal Result * PREPARE FRESH FROZEN PLASMA (12/14/2024 9:24 AM CDT) Only the most recent of4 resultswithin the time period is included. COMPONENT TYPE [id number] [facility] [place] COMPONENT IDENTIFICATION [id number] [facility] [place] UNIT ABO AB [facility] [place] UNIT RH POS [facility] [place] COMPONENT STATUS Transfused [facility] [place] COMPONENT EXPIRATION DATE/TIME [id number] [facility] [place] COMPONENT CODING SYSTEM [address] [facility] [place] VOLUME, BLOOD PRODUCT 222 [facility] [place] Other, specify 12/14/2024 9: 24 AM CDT Jonathan Ruiz MD LAB TRANSFUSION ORDERABLES Edit ed Result - Final [facility] CLIA#[id number] [address] [place] [address], * (ABNORMAL) PT AND APTT (12/14/2024 4:22 AM CDT) Pathologist [facility] PROTIME 29.1(H) 12.7 - 14.9 Seconds 12/14/2024 4:47 AM CDT [facility] INR 2.6(H) 0.8 - 1.2 12/14/2024 4:47 AM CDT [facility] PTT 39.6(H) 24.8 - 37.2 seconds 12/14/2024 4:47 AM CDT [facility] Blood Venipuncture / Unknown 12/14/2024 4:22 AM CDT 12/14/2024 4:35 AM CDT Narrative [facility] - 12/14/2024 4:47 AM CDT Expected Values for INR: DVT/PE Goal INR 2.5; range 2.0 - 3.0 Valve Replacement Tissue Goal INR 2.5; range 2.0 - 3.0 Valve Replacement Mechanical Goal INR 3.0; range 2.5 - 3.5 POST-TN Goal INR 2.5; range 2.0 - 3.0 or Goal INR 3.0; range 2.5 - 3.5 Atrial Fibrillation Goal INR 2.5; range 2.0 - 3.0 Ischemic Stroke Goal INR 2.5; range 2.0 - 3.0 Therapeutic Range: Hi-level PE/DVT heparin protocol 80.1 - 95.0 sec Lo-level PE/DVT heparin protocol 70.1 - 85.0 sec Cardiac Heparin Protocol 70.1 - 100.0 sec Erna Herr DO HEMATOLOGY ORDERABLES Final Res ult Performing Organization Address City/[facility] Co de Phone Number [facility] [place] CLIA # [id number] [address] [address] * ABORH TYPING (12/14/2024 4:22 AM CDT) Pathologist [facility] ABO GROUP AB 12/14/2024 9:56 AM CDT [facility] [place] RH (D) TYPE Positive 12/14/2024 9:56 AM CDT [facility] [place] Blood Venipuncture / Unknown 12/14/2024 4:22 AM CDT 12/14/2024 8:52 AM CDT Jonathan Ruiz MD BLOOD BANK ORDERABLES Final Res ult Performing Organization Address [facility] Co de Phone Number [facility] [place] CLIA#[id number] Critical access hospital[address] [place] [address], * MICROALBUMIN/CREATININE RATIO, RANDOM UR (01/28/2015 2:57 PM CDT) MICROALBUMIN URINE 11.4 MG/DL 01/28/2015 8:44 PM CDT [facility] Creatinine, Urine 66 MG/DL 015 8:44 PM CDT [facility] MICROALBUMIN/CREA T RATIO, UR 172.7 MCG/MG CREAT. 01/28/2015 8:44 PM CDT [facility] Comment: NORMAL: <30 MCG/MG CREAT MICROALBUMINURIA: 30-300 MCG/MG CREAT CLINICAL ALBUMINURIA: >300 MCG/MG CREAT Urine 01/28/2015 2:57 PM CDT 01/28/2015 2:58 PM CDT Janes Reyes MD URINE ORDERABLES Final Result [facility] IA# [id number] [address] [place] [phone] from Last 3 Months or Most Recently Relevant to Health Maintenance Insurance [place] MEDICARE PART A AND B [place] * Guarantor: TURNER SAMUEL Account Type Relation to Patient Date of Phone Billing Address Personal/Family [address] [place] [address] Advance Directives For more information, please contact: [phone] Documents on File Type Date Recorded Patient Patient Access Associate Expl anation Advance Directive Living Will 02/05/2025 8:20 AM Advance Directive Living Will Advance Directive POA 02/05/2025 8:20 AM Advance Directive POA Advance Directive Living Will 02/03/2025 2:05 PM Advance Directive Living Will Advance Directive POA 02/03/2025 2:04 PM Advance Directive POA * Full Code (Latest Code Status on File) Date Activated Date Inactivated Comments 01/12/2025 8:44 PM 02/04/2025 7:31 PM * Full Code Date Activated Date Inactivated Comments 12/10/2024 2:34 PM 12/24/2024 9:45 PM * Full Code Date Activated Date Inactivated Comments 11/15/2024 12:15 PM 11/25/2024 8:26 PM * Full Code Date Activated Date Inactivated Comments 12/18/2023 9:31 AM 12/18/2023 2:01 PM * Full Code Date Activated Date Inactivated Comments 05/07/2023 10:49 AM 05/10/2023 3:50 PM 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
--- NOTE | 2025-03-14 17:24 | USR_ITS ---
PROCEDURE INFORMATION: Exam: US Duplex Left Upper Extremity Veins, Limited Exam date and time: 03/14/2025 6:15 PM Age: 34 years old Clinical indication: Swelling (edema) of limb; Upper extremity, left; Prior Surgery; Surgery Date: 6+ months; Surgery Type: History of fistula but has been removed; Additional Info: edema/pain TECHNIQUE: Imaging protocol: Real-time duplex ultrasound of the left extremity with 2-D vidal scale, color Doppler flow and spectral waveform analysis including responses to compression and other maneuvers (when performed) with image documentation. Limited exam focused on the left upper extremity veins. COMPARISON: No relevant prior studies available. FINDINGS: Left deep veins: Left axillary vein demonstrates echogenic occluding thrombus. Jugular, subclavian and brachial veins are otherwise patent throughout without thrombus and normal waveforms. Superficial veins: Unremarkable. Visualized cephalic and basilic veins are patent without thrombus. Soft tissues: Unremarkable. US/[place] [address] IMPRESSION: Left axillary vein deep vein thrombosis.
[2025-03-14] MEDS: morphine 4 mg/mL SDV 1 mL IVP ×2 (17:52→20:36)
[2025-03-14] MEDS: ondansetron 2 mg/ML SDV 2 mL 4 MG IVP (17:53)
[2025-03-14 18:02] LABS: Hematocrit 37.8 % (37-53); Hemoglobin 11.90 g/dL (11.27-16.99); Mean Corpuscular HGB Conc 31.5 g/dL (30-55); Mean Corpuscular Hemoglobin 29.0 pg (27-33); Mean Corpuscular Volume 92.0 fl (82-101); Nucleated Red Blood Cells % 0 %; Platelet Count 190 10^3/cmm (157-399); Red Blood Count 4.11 10^6/uL (3.85-5.65); White Blood Count 9.25 10^3/uL (3.29-11.43)
[2025-03-14 18:24] LABS: Alanine Aminotransferase 112 U/L (0-41); Albumin Level 2.6 g/dL (3.5-5.2); Alkaline Phosphatase 690 U/L (40-130); Anion Gap 14.4 (5-19); Aspartate Amino Transferase 84 U/L (0-40); Blood Urea Nitrogen 60 mg/dL (6-20); Calcium 8.4 mg/dL (8.5-10.5); Carbon Dioxide 20 mmol/L (22-29); Chloride 98 mmol/L (98-107); Globulin 4.2 g/dL (1.3-4.6); Glucose 152 mg/dL (65-115); Osmolality Calculated 286 mOsm/kg (285-295); Potassium 4.4 mmol/L (3.5-5.1); Sodium 128 mmol/L (136-145); Total Protein 6.8 g/dL (6.6-8.7)
[2025-03-14 20:14] LABS: INR 1.17 (0.8-1.2); Prothrombin Time 15.70 SECONDS (12.1-14.9)
[2025-03-14 20:15] LABS: Partial Thromboplastin Time 33.9 SECONDS (23.9-36.7)
[2025-03-14 21:13] LABS: Lipase 8 U/L (13-60)
--- NOTE | 2025-03-14 22:49 | PC.NURSE ---
This nurse provided discharge instructions and pt report to Mary at [facility]. Denied further questions.
[2025-03-14] MEDS: diphenhydrAMINE 50 mg/mL SDV 1mL 12.5 MG IVP (23:43)
[2025-03-15 00:46] VITALS: BP 130/90; PULSE 89; O2SAT 93
[2025-03-15] MEDS: morphine 4 mg/mL SDV 1 mL 2 MG IVP (01:31)
[2025-03-15 02:13] VITALS: BP 126/74; PULSE 92; O2SAT 96
[2025-03-15 04:38] VITALS: BP 99/73; PULSE 85; O2SAT 100
[2025-03-15 05:44] VITALS: BP 114/83; PULSE 86; O2SAT 94
[2025-03-15 06:13] VITALS: BP 115/81; PULSE 85; O2SAT 100
== END 2025-03-15 08:36 | disposition home or self-care (01) ==
PROVIDERS: Emergency Provider Physician Assistant
DX: I82.A12 Acute embolism and thrombosis of left axillary vein (principal); R74.8 Abnormal levels of other serum enzymes
CPT/HCPCS: 36415; 80053; 83690; 85025; 85610; 85651; 85730; 86140; 93971; 96374; 96375; 96376; 99284; J1200; J2270; J2405; J9999